=== PATIENT | female | born 1965 | race Caucasian/White ===

== ENCOUNTER → 2017-11-30 16:13 | Outpatient (CLI) | payer MEDICARE, OTHER, SELFPAY | PROVIDERS: Visit Provider Emergency Medicine | DX: F99 Mental disorder, not otherwise specified (principal); R63.5 Abnormal weight gain ==

== ENCOUNTER → 2017-12-09 09:54 | Outpatient (CLI) | payer MEDICARE, OTHER, SELFPAY ==
--- NOTE | 2017-12-09 09:59 | CI_ITS ---
Cerebrovascular Exam Indications: 785.9 Bruit. Patient states she's notes memory loss. She states that she has episodes of tingling in the left hand and leg that comes and goes. IMPRESSIONS 1. The right internal carotid artery reveals no evidence of plaque or stenosis. 2. The bilateral vertebral arteries are patent with normal antegrade flow. 3. Study suggests less than 20% stenosis involving the left internal carotid artery. History: A bruit of the left carotid artery. A bruit of the right carotid artery. Risk factors: Current tobacco use. Carotid duplex study. Complete study and Doppler flow study including spectral analysis, color and dixon scale imaging. Height: Height: 167.6cm. Height: 66in. Weight: Weight: 63.5kg. Weight: 139.7lb. Body mass index: BMI: 22.6kg/m^2. Body surface area: BSA: 1.72m^2. Location: Vascular laboratory. Patient status: Outpatient. Tables: Arterial flow: + +--------+--------+ Location V [facility] V ed + +--------+--------+ Right CCA - proximal 98.2cm/s 25.9cm/s + +--------+--------+ Right CCA - distal 81.7cm/s 30.6cm/s + +--------+--------+ Right ECA 88cm/s -------- + +--------+--------+ Right ICA - proximal 64.9cm/s 32.8cm/s + +--------+--------+ Right ICA - mid 109cm/s 54.5cm/s + +--------+--------+ Right ICA - distal 101cm/s 46.1cm/s + +--------+--------+ Right vertebral 44.7cm/s -------- + +--------+--------+ Left CCA - proximal 103cm/s 30cm/s + +--------+--------+ Left CCA - distal 84.5cm/s 36.3cm/s + +--------+--------+ Left ECA 93.6cm/s -------- + +--------+--------+ Left ICA - proximal 84.5cm/s 28.6cm/s + +--------+--------+ Left ICA - mid 112cm/s 47.5cm/s + +--------+--------+ Left ICA - distal 108cm/s 52.4cm/s + +--------+--------+ Left vertebral 53.8cm/s -------- + +--------+--------+ Velocity ratios: + + + + + + Right, V sys Right, V ed Left, V sys Left, V ed + + + + + + Max ICA/dist CCA 1.33 1.78 1.33 1.44 + + + + + + (Report amended ) Electronically signed by: Nayan Isbell [id number]
--- NOTE | 2017-12-09 09:59 | MR_ITS ---
MR head/brain wo con HISTORY: Memory loss, confusion, headache, dizziness and blurred vision ITS.REASON: confudion and disorientation ORDERING PHYSICIAN: Shant Brock MD PATIENT AGE: 52 years Comparison: None TECHNIQUE: Standard multiplanar multiecho sequences are performed without contrast. FINDINGS: No midline shift, mass effect, intracranial hemorrhage, or hydrocephalus. No evidence of acute infarction. The cerebellopontine angles, cerebellum, and brainstem have an unremarkable appearance. There are scattered punctate T2 white matter hyperintensities. These are nonspecific and do not show restricted diffusion and may be due to microangiopathic gliotic change. The hippocampal Roseanne right are unremarkable in the temporal horns are symmetric. The pituitary has an unremarkable appearance. No evidence of cerebellar ectopia. No intra or extra-axial mass. No mastoid effusion or sinus air-fluid level. IMPRESSION: 1. No acute intracranial findings. 2. Minimal T2 white matter hyperintensities nonspecific and may be due to minimal ischemic gliotic microvascular changes or could be sequela from migraine headache. Demyelinating process felt to be less likely based on imaging characteristics
[2017-12-09 12:36] LABS: Alanine Aminotransferase 19 U/L (12-78); Albumin/Globulin Ratio 1.2 (1.1-1.8); Alkaline Phosphatase 94 U/L (46-116); Anion Gap 11.1 mEq/L (5-15); Aspartate Amino Transferase 19 U/L (15-37); Bilirubin,Total 0.5 mg/dL (0.2-1.0); Blood Urea Nitrogen 12 mg/dL (7-18); Calcium 9.1 mg/dL (8.5-10.1); Carbon Dioxide 31 mmol/L (21.0-32.0); Chloride 102 mmol/L (98-107); Creatinine,Serum 0.71 mg/dL (0.55-1.02); Estimated Glomerular Filt Rate 87 ml/min (>60); Free T4 (Free Thyroxine) 1.26 ng/dl (0.76-1.46); GFR (African American) 105 ML/MIN (>60); Globulin 3.4 gm/dl (1.3-3.2); Glucose 99 mg/dL (74-106); Potassium 4.1 mmoL/L (3.5-5.1); Sodium 140 mmol/L (136-145); Total Protein,Serum 7.4 gm/dL (6.4-8.2)
[2017-12-09 12:40] LABS: C-Reactive Protein < 0.2 mg/L (0.0-0.9)
[2017-12-09 12:57] LABS: Erythrocyte Sedimentation Rate 5 mm/hr (0-20)
[2017-12-10 18:05] LABS: FSH 69.2 mIU/mL (.); LH 14.7 mIU/mL (.)
[2017-12-13 15:22] LABS: Arsenic, Blood 5 ug/L (2-23); Estrogen 60 pg/mL (.); Lead, Blood 2 ug/dL (0-19); Mercury, Blood None Detected ug/L (0.0-14.9)
== END ==
PROVIDERS: Family Provider Emergency Medicine; PCP Emergency Medicine; Visit Provider Emergency Medicine
DX: R09.89 Other specified symptoms and signs involving the circulatory and respiratory systems (principal); R63.5 Abnormal weight gain; F99 Mental disorder, not otherwise specified
CPT/HCPCS: 36415; 70551; 80053; 82175; 82672; 83001; 83002; 83655; 83825; 84439; 85651; 86140; 93880

== ENCOUNTER → 2018-02-13 10:42 | Outpatient (POV) | payer MEDICARE, OTHER, SELFPAY | LOC: SC 10:42 → RT 10:44 | PROVIDERS: Family Provider Emergency Medicine; PCP Emergency Medicine; Visit Provider Specialist | DX: R41.0 Disorientation, unspecified (principal) ==

== ENCOUNTER → 2018-02-20 12:38 | Outpatient (CLI) | payer MEDICARE, OTHER, SELFPAY ==
[2018-02-20 15:26] LABS: Free T4 (Free Thyroxine) 1.21 ng/dl (0.76-1.46); Thyroid Stimulating Hormone 1.61 uIU/ml (0.358-3.740)
[2018-02-21 14:19] LABS: Anti-Jo-1 <0.2 AI (0.0-0.9); Anti-Smith Antibody <0.2 AI (0.0-0.9); Antichromatin Antibodies <0.2 AI (0.0-0.9); Antiscleroderma-70 Antibodies <0.2 AI (0.0-0.9); RNP Antibodies <0.2 AI (0.0-0.9); Sjogren's Anti-SS-A <0.2 AI (0.0-0.9); Sjogren's Anti-SS-B <0.2 AI (0.0-0.9)
[2018-02-22 07:49] LABS: Anti-Centromere B Antibodies <0.2 AI (0.0-0.9); Anti-DNA (DS) Ab Qn 3 IU/mL (0-9); Folate 16.3 ng/mL (>3.0); HIV Screen 4th Generation wRfx Non Reactive (Non Reactive); Rapid Plasma Reagin Ab Titer Non Reactive (NonRea<1:1); Triiodothyronine (T3) Total 177 ng/dL (71-180); Vitamin B12 310 pg/mL (232-1245)
[2018-02-24 18:32] LABS: Vitamin B1 116.2 nmol/L (66.5-200.0)
== END ==
PROVIDERS: Family Provider Emergency Medicine; PCP Emergency Medicine; Visit Provider Specialist
DX: G93.40 Encephalopathy, unspecified (principal); R41.0 Disorientation, unspecified; R41.3 Other amnesia; Z87.898 Personal history of other specified conditions; Z11.4 Encounter for screening for human immunodeficiency virus [HIV]
CPT/HCPCS: 36415; 82607; 82746; 84425; 84439; 84443; 84480; 86225; 86235; 86592; 86703; G0432

== ENCOUNTER → 2018-02-21 19:19 | Outpatient (CLI) | payer MEDICARE, OTHER, SELFPAY | PROVIDERS: PCP Emergency Medicine; Visit Provider Specialist | DX: G47.33 Obstructive sleep apnea (adult) (pediatric) (principal) | CPT/HCPCS: 95810 ==

== ENCOUNTER → 2018-02-23 12:22 | Outpatient (CLI) | payer MEDICARE, OTHER, SELFPAY | PROVIDERS: Family Provider Emergency Medicine; PCP Emergency Medicine; Visit Provider Specialist | DX: R41.0 Disorientation, unspecified (principal); R41.3 Other amnesia; G93.40 Encephalopathy, unspecified | CPT/HCPCS: 95816 ==

== ENCOUNTER → 2019-04-24 16:43 | Outpatient (CLI) | payer MEDICARE, BC, SELFPAY ==
[2019-04-24 17:29] LABS: Basophils % 0.8 % (0.1-2.0); Eosinophils % 0.8 % (0.1-12.0); Hematocrit 52.4 % (37.0-47.0); Hemoglobin 16.9 g/dL (12.2-16.2); Lymphocytes # 1.6 K/mm3 (0.7-4.5); Lymphocytes % 32.7 % (10-50); Mean Corpuscular HGB Conc 32.2 g/dL (31.8-35.4); Mean Corpuscular Hemoglobin 29.9 pg (27.0-31.2); Mean Corpuscular Volume 92.8 fl (81-99); Mean Platelet Volume 8.7 fl (7.4-10.4); Monocytes # 0.3 K/mm3 (0.1-1.0); Monocytes % 5.7 % (1.7-9.3); Neutrophils % 60.1 % (37.0-80.0); Platelet Count 237 K/mm3 (142-424); Red Blood Count 5.65 M/mm3 (4.20-5.40); Red Cell Distribution Width 14.3 % (11.5-17.5)
[2019-04-24 18:19] LABS: Alanine Aminotransferase 23 U/L (12-78); Albumin Level 4.3 gm/dL (3.4-5.0); Albumin/Globulin Ratio 1.3 (1.1-1.8); Alkaline Phosphatase 74 U/L (46-116); Anion Gap 12.4 mEq/L (5-15); Aspartate Amino Transferase 27 U/L (15-37); Bilirubin,Total 0.5 mg/dL (0.2-1.0); Blood Urea Nitrogen 9 mg/dL (7-18); Calcium 9.5 mg/dL (8.5-10.1); Carbon Dioxide 32 mmol/L (21.0-32.0); Chloride 99 mmol/L (98-107); Chol/HDL Ratio 2.7 (1-3.5); Cholesterol 178 mg/dL (140-200); Creatinine,Serum 0.79 mg/dL (0.55-1.02); Estimated Glomerular Filt Rate 77 ml/min (>60); GFR (African American) 93 ML/MIN (>60); Globulin 3.2 gm/dl (1.3-3.2); Glucose 84 mg/dL (74-106); HDL Cholesterol 65 mg/dL (29-89); LDL Cholesterol 98 mg/dL (0-130); Potassium 4.4 mmoL/L (3.5-5.1); Sodium 139 mmol/L (136-145); T4 (Thyroxine) 14.5 ug/dl (4.7-13.3); Total Protein,Serum 7.5 gm/dL (6.4-8.2); Triglycerides 75 mg/dL (30-200); VLDL Cholesterol 15 mg/dL (0-40)
[2019-04-24 18:43] LABS: Erythrocyte Sedimentation Rate 3 mm/hr (0-30)
[2019-04-26 11:21] LABS: Vitamin D 25 Hydroxy 28.3 ng/mL (30.0-100.0)
== END ==
PROVIDERS: Visit Provider Emergency Medicine
DX: M79.7 Fibromyalgia (principal); Z00.00 Encounter for general adult medical examination without abnormal findings; I10 Essential (primary) hypertension; R05 Cough
CPT/HCPCS: 80053; 80061; 82652; 84436; 84443; 85025; 85651

== ENCOUNTER → 2019-05-08 10:14 | Outpatient (CLI) | payer MEDICARE, BC, SELFPAY ==
[2019-05-09 14:11] LABS: Folate 10.8 ng/mL (>3.0); Vitamin B12 358 pg/mL (232-1245)
== END ==
PROVIDERS: Visit Provider Physician Assistant
DX: R71.8 Other abnormality of red blood cells (principal)
CPT/HCPCS: 36415; 82607; 82746

== ENCOUNTER → 2020-10-30 09:47 | Outpatient (CLI) | payer MEDICARE, SELFPAY ==
--- NOTE | 2020-10-30 09:51 | MM_ITS ---
PROCEDURE INFORMATION: Exam: MG Screening 3D Mammography Exam date and time: 10/30/2020 9:51 AM Age: 55 years old Clinical indication: Breast CA screening TECHNIQUE: Imaging protocol: Screening tomosynthesis and 2D mammography including computer-aided detection (CAD) when performed. COMPARISON: No relevant prior studies available. FINDINGS: MAMMOGRAPHY: Breast composition: The breast tissue is composed of scattered areas of fibroglandular density. Mass: None. Architectural distortion: None. Calcifications: No suspicious calcifications. Asymmetric density: None. Skin thickening: None. Axillary adenopathy: None. Implants: Subpectoral saline breast implants are present. IMPRESSION: No mammographic evidence of malignancy. Annual screening is recommended unless otherwise clinically indicated. ASSESSMENT: BI-RADS Category 1: Negative
== END ==
PROVIDERS: PCP Emergency Medicine; Visit Provider Nurse Practitioner Family
DX: Z12.31 Encounter for screening mammogram for malignant neoplasm of breast (principal)
CPT/HCPCS: 77063; 77067

== ENCOUNTER → 2021-02-27 11:24 | Outpatient (CLI) | payer MEDICARE, SELFPAY ==
--- NOTE | 2021-02-27 11:28 | XR_ITS ---
PROCEDURE: XR CHEST 2V CLINICAL HISTORY: Shortness of breath COMPARISON: CR CXR CHEST(2 VIEWS-NOT PORTABLE) from 03/17/2017 FINDINGS: The cardiomediastinal silhouette and pulmonary vascularity are within normal limits. No lobar consolidation or collapse. There is a calcified granuloma in the left lower lobe. There is mild hyperinflation. No acute bony abnormalities. IMPRESSION: Hyperinflation which may be due to COPD, bronchitis, or asthma. Dictated by: Nayan Isbell MD 02/27/2021 12:09 Nayan Isbell MD in [place] 02/27/2021 12:09
== END ==
PROVIDERS: PCP Emergency Medicine; Visit Provider Emergency Medicine
DX: J44.9 Chronic obstructive pulmonary disease, unspecified (principal)
CPT/HCPCS: 71046

== ENCOUNTER → 2021-02-27 13:54 | Outpatient (CLI) | payer MEDICARE, SELFPAY ==
[2021-02-27 14:09] LABS: Basophils # 0.1 K/mm3 (0-0.2); Basophils % 1.7 % (0.1-2.0); Eosinophils % 0.4 % (0.1-12.0); Hematocrit 48.4 % (37.0-47.0); Hemoglobin 15.5 g/dL (12.2-16.2); Lymphocytes # 2.3 K/mm3 (0.7-4.5); Lymphocytes % 33.9 % (10-50); Mean Corpuscular HGB Conc 31.9 g/dL (31.8-35.4); Mean Corpuscular Volume 93.9 fl (81-99); Mean Platelet Volume 8.9 fl (7.4-10.4); Monocytes # 0.4 K/mm3 (0.1-1.0); Monocytes % 5.6 % (1.7-9.3); Neutrophils % 58.4 % (37.0-80.0); Platelet Count 286 K/mm3 (142-424); Red Blood Count 5.15 M/mm3 (4.20-5.40); Red Cell Distribution Width 13.9 % (11.5-17.5); White Blood Count 6.8 K/mm3 (4.8-10.8)
[2021-02-27 14:38] LABS: Alanine Aminotransferase 11 U/L (12-78); Albumin Level 3.8 g/dl (3.5-5.0); Albumin/Globulin Ratio 1.2 (1.1-1.8); Alkaline Phosphatase 78 U/L (38-126); Anion Gap 13.8 mEq/L (5-15); Aspartate Amino Transferase 22 U/L (14-36); Bilirubin,Total 0.1 mg/dl (0.2-1.3); Blood Urea Nitrogen 16 mg/dl (7-17); Calcium 9.5 mg/dl (8.4-10.2); Carbon Dioxide 32 mmol/L (22.0-30.0); Chloride 97 mmol/L (98-107); Chol/HDL Ratio 2.2 (1-3.5); Cholesterol 178 mg/dl (140-200); Estimated Glomerular Filt Rate 75 ml/min (>60); GFR (African American) 91 ML/MIN (>60); Globulin 3.3 g/dL (1.3-3.2); Glucose 73 mg/dl (74-100); HDL Cholesterol 82 mg/dl (40-60); Potassium 4.8 mmoL/L (3.5-5.1); Sodium 138 mmol/L (136-145); Total Protein,Serum 7.1 g/dl (6.3-8.2); Triglycerides 52 mg/dl (30-150); VLDL Cholesterol 10 mg/dL (0-40)
[2021-02-27 14:49] LABS: Direct LDL Cholesterol 82.35 mg/dL (100-129)
[2021-02-27 14:55] LABS: 25-OH Vitamin D, Total 37.2 ng/mL (30-100); T4 (Thyroxine) 10.5 ug/dl (5.53-11.0)
[2021-02-27 15:09] LABS: Thyroid Stimulating Hormone 4.22 uIU/mL (0.465-4.68)
== END ==
LOC: LAB.DROPOF 13:55
PROVIDERS: Visit Provider Emergency Medicine
DX: E55.9 Vitamin D deficiency, unspecified (principal); J44.9 Chronic obstructive pulmonary disease, unspecified; M19.90 Unspecified osteoarthritis, unspecified site; R53.83 Other fatigue; M79.7 Fibromyalgia; E78.5 Hyperlipidemia, unspecified
CPT/HCPCS: 71046; 80053; 80061; 82306; 84436; 84443; 85025

== ENCOUNTER → 2021-03-16 14:43 | Outpatient (CLI) | payer MEDICARE, SELFPAY ==
[2021-03-16 15:50] VITALS: PULSE 70; PULSE 76
== END ==
LOC: RT 14:44
PROVIDERS: PCP Emergency Medicine; Visit Provider Emergency Medicine
DX: R06.02 Shortness of breath (principal)
CPT/HCPCS: 94060; 94640; 94727; 94729

== ENCOUNTER → 2021-07-29 14:38 | Outpatient (CLI) | payer MEDICARE, SELFPAY ==
--- NOTE | 2021-07-29 15:04 | CT_ITS ---
FINAL REPORT TECHNIQUE: Axial images were obtained from the lung apex to the mid abdomen by computed tomography. Low-dose protocol was utilized. CLINICAL HISTORY: lung cancer screening..pt smokes 1 pack a day for 30 years FINDINGS: CHEST CT LOW DOSE CTDI vol (mGy): 2.90 DLP (mGy-cm): 101.60 Bilateral subglandular breast implants are identified. There are densely calcified subcarinal and left hilar lymph nodes. The heart is normal in size. There is no pericardial or pleural effusion. Lung window images demonstrate no suspicious infiltrate or nodule. There are advanced changes of centrilobular emphysema. There is a benign-appearing cyst in the right lobe of the liver measuring 9 mm. IMPRESSION: Advanced emphysema. Lung RADS category 1S. Recommend 12 month follow-up low-dose chest CT. Reviewed, Interpreted and Dictated by Paddy Painter MD Transcribed by Nitza Medina Authenticated by Paddy Painter MD on 07/29/2021 04:19:29 PM [facility]
== END ==
PROVIDERS: PCP Emergency Medicine; Visit Provider Internal Medicine Pulmonary Disease
DX: Z87.891 Personal history of nicotine dependence (principal); Z12.2 Encounter for screening for malignant neoplasm of respiratory organs
CPT/HCPCS: 71271

== ENCOUNTER → 2021-09-23 09:15 | Outpatient (CLI) | payer MEDICARE, SELFPAY | LOC: RT 09:17 | PROVIDERS: PCP Emergency Medicine; Visit Provider Internal Medicine Pulmonary Disease | DX: R06.09 Other forms of dyspnea (principal); J43.9 Emphysema, unspecified | CPT/HCPCS: 94762 ==

== ENCOUNTER → 2022-01-15 10:37 | Outpatient (CLI) | payer MEDICARE, SELFPAY ==
--- NOTE | 2022-01-15 10:37 | US_ITS ---
FINAL REPORT CLINICAL HISTORY: CLAUDICATION AND REST PAIN BILATERAL,SMOKER,DISCOLORATION LE'S FINDINGS: COMPLETE ANKLE/BRACHIAL INDICES BILATERAL Complete ankle brachial indices were obtained. The right NINO is 1.06. The left NINO is 1.10. IMPRESSION: ABIs are within normal limits bilaterally. Reviewed, Interpreted and Dictated by Otto Tapia III, MD Transcribed by Nitza Medina Authenticated and [facility]
--- NOTE | 2022-01-15 10:37 | CA_ITS ---
APPROVED REPORT EXAM: Comprehensive 2D, Doppler, and color-flow Echocardiogram Circular Knife Machine Cutter: Talia Eid, RT(R) Ht: 5 ft 6 in Wt: 112lbs BSA: 1.56 BP: 125/70 mmHg Indications: smoker, fatigue, MILES, abn EKG, SOA, edema 2D Dimensions LVEF (Patel's) 57.90 % F: 54 - 74 LV Volume 93.20 mL F: 46 - 106 LV Volume Index 59.74 mL/m2 F: 29 - 61 LA Volume 24.40 mL LA Volume Index 15.64 mL/m2 (M/F) 16-34 M-Mode Dimensions RVDd 1.75 cm (0.9-2.6) LA Diam 2.87 cm (1.9-4.0) LVDd 4.83 cm (3.5-5.7) Ao Diam 2.01 cm (2.0-3.7) LVDs 3.47 cm (3.5-5.7) IVSd 0.68 cm (0.6-1.1) PWd 0.72 cm (0.6-1.1) EF (Teich) 54.40% FS 28.20% EDV (Teich) 109.10 mL ESV (Teich) 49.80 mL LV Diastology E Decel Time 217.00 (160-240 msec) E/A Ratio 1.6 MED E' 8.60 (< 7 cm/sec) E'/MED E' Ratio 8.58 (>14) LAT E' 13.10 (<10 cm/sec) E/LAT E' Ratio 5.63 (>14) Mitral Valve MV E Max Khoi. 74.00 (40-130 cm/s) MV A Velocity 45.00 (40-130 cm/s) E/A Ratio 1.63 MV Decel. Time 217.00 (160-240 ms) MV PHT 63.00 ms Tricuspid Valve TR P. Velocity 183.00 cm/s RAP Estimate 10.00 mmHg RVSP 23.30 mmHg Left Ventricle Left atrium normal size left ventricle is normal size, there is no concentric left ventricular hypertrophy, estimated ejection fraction 55% with no regional wall motion abnormality, diastolic parameters are within normal range. Right Ventricle Right atrium and right ventricle are mildly enlarged with normal contractility. Aortic Valve Aortic valve is minimally thickened and calcified without aortic stenosis, there is mild aortic insufficiency. Mitral Valve Mitral valve grossly normal, there is trace mitral regurgitation. Tricuspid Valve Tricuspid valve grossly normal, there is trace tricuspid regurgitation, tricuspid regurgitation jet velocity is inadequate for calculation of the right ventricular systolic pressure. Pulmonic Valve Pulmonic valve is poorly visualized. Great Vessels Aortic root is normal size. Inferior vena cava normal size with normal inspiratory collapse. Pericardium No significant pericardial effusion noted. Conclusion 1. Normal left ventricular size preserved left ventricular systolic function, estimated ejection fraction 55% with no regional wall motion abnormality, diastolic parameters are within normal range. 2. Qualitatively mildly enlarged right ventricle with normal contractility. 3. Mild aortic, trace mitral and tricuspid regurgitation. 4. No significant pericardial effusion noted. 5. Inferior vena cava is normal size with normal inspiratory collapse. Electronically signed by : Humza Naranjo MD 01/15/2022 12:07:34
== END ==
LOC: RT 10:37
PROVIDERS: PCP Emergency Medicine; Visit Provider Nurse Practitioner Family
DX: F19.11 Other psychoactive substance abuse, in remission (principal); L81.9 Disorder of pigmentation, unspecified; R06.00 Dyspnea, unspecified; R20.0 Anesthesia of skin; R42 Dizziness and giddiness; R53.83 Other fatigue; R60.0 Localized edema; R94.31 Abnormal electrocardiogram [ECG] [EKG]; Z72.0 Tobacco use; I70.213 Atherosclerosis of native arteries of extremities with intermittent claudication, bilateral legs
CPT/HCPCS: 93306; 93923

== ENCOUNTER → 2022-02-04 12:19 | Outpatient (CLI) | payer MEDICARE, SELFPAY ==
--- NOTE | 2022-02-04 | CA_ITS ---
APPROVED REPORT Exam: Pharmacologic Technologist: Mary Smith, Ht: 5 ft 6 in Wt: 116 lbs BSA: 1.59 m2 HR: 58 bpm BP: 124/72 mmHg Rhythm: SINUS BRADYCARDIA, RBBB, RIGHTWARD AXI, T WAVE ABN ANTERIORLY Medical History Medications: Aspirin,,,,, Duoneb,,,,, Albuterol,,,,, Vit D3,,,,, MethADONE,,,,, PERformist,,,,, Budesonide,,,,, Vit D2,,,,, Allergies: No known drug allergies Cardiac Risk Factors: Smoking Stress Test Details Test: LEXISCAN HR Resting HR: 63 bpm Max Heart Rate (APMHR): 166.926144 bpm Max HR Achieved: 108 bpm Target HR (85% APMHR): 141.875841 bpm % of APMHR: 65.06 Recovery HR: 88 bpm BP Resting BP: 124/72 mmHg Max BP: 147/93 mmHg Recovery BP: 142.0/86.0 mmHg ECG Resting ECG: SINUS BRADYCARDIA, RBBB, RIGHTWARD AXIS, T WAVE ABN ANTERIORLY Clinical Exercise duration: 04:03 min Highest Stage Achieved: Stress ECG Conclusion PT HAS SOA, HEAD DISCOMFORT, MALAISE, NO CP. MODERATELY FREQUENT PVCS. RARE V COUPLET. EXAGGERATION OF BASELINE T WAVE ABNS. NON-DIAGNOSTIC LEXISCAN STRESS. MYOVIEW IMAGES REPORTED SEPARATELY. Test Summary REST 03:42 . . 63 . 124/ 72 . . Stage 1 01:00 . . 80 . . . . Stage 2 01:00 . . 101 . . . . Stage 3 01:00 . . 100 . 128/ 81 . . Stage 4 01:00 . . 101 . 139/ 81 . . Stage 4 01:03 . . 101 . 139/ 81 . Stop exercise at 04:03 RECOVERY 01:00 . . 100 . . . . RECOVERY 02:00 . . 101 . . . . RECOVERY 03:00 . . 92 . 147/ 93 . . RECOVERY 04:00 . . 87 . 142/ 86 . . RECOVERY 05:00 . . 86 . 142/ 86 . . RECOVERY 05:36 . . 80 . 142/ 86 . . Electronically signed by : Humza Naranjo MD 02/05/2022 09:57:35
--- NOTE | 2022-02-04 12:20 | NM_ITS ---
APPROVED REPORT Exam: Nuclear Stress Test Indication: TOB USE, SOB, FATIGUE, ABN EKG Patient Location: Outpatient Stress Tech: Mary Smith MD Tech:Jeny WongMIO hein RT (R)(N)(M) Ht: 5 ft 6 in Wt: 125 lbs Bra Size: B HR: 58 bpm BP: 124/72 mmHg BSA: 1.64 m2 TID: 1.16 BMI: 20.1 History: TOB USE, SOB, FATIGUE, ABN EKG Procedure: Patient received a 0.4 mg of intravenous Lexiscan, resting heart rate 58 bpm, resting blood pressure 124/72 mmHg, with Lexiscan maximum heart rate achived was 101 bpm which is Less than 85 % of the maximum predicted heart rate and blood pressure was 128/81 mmHg. With Lexiscan, patient denied any complaint of chest pain. SOA Electrocardiogram Resting electrocardiogram showed sinus rhythm right bundle branch block, with Lexiscan there is less than 1.[address] segment depression noted from the baseline EKG. The EKG portion of the Lexiscan is nondiagnostic. Cardiac Stress and Resting SPECT Images: Cardiac Stress and Resting SPECT images were obtained using technetium 99m Myoview 31.6 mCi stress and 9.91 mCi at rest. Gated SPECT for analysis of segmental wall motion and calculation of the ejection fraction also done. Prone images were also obtained. Cardiac stress and rest SPECT images show mild fixed defect in the anterior wall with normal contractility in the gated SPECT is likely secondary to soft tissue attenuation from the breast, no reversible ischemia seen, computer derived ejection fraction is 48% with no regional wall motion abnormality, right ventricle is normal size and contractility. Conclusion: 1. The EKG portion of the Lexiscan is nondiagnostic. 2. No scintigraphic evidence of reversible ischemia seen, computer derived ejection fraction is 48% with no regional wall motion abnormality, right ventricle is normal size and contractility. 3. Likely normal Lexiscan Myoview study. Electronically signed by : Humza Naranjo MD 02/05/2022 10:04:15
== END ==
LOC: RAD 12:20
PROVIDERS: PCP Emergency Medicine; Visit Provider Nurse Practitioner Family
DX: F19.11 Other psychoactive substance abuse, in remission (principal); I73.9 Peripheral vascular disease, unspecified; L81.9 Disorder of pigmentation, unspecified; M79.606 Pain in leg, unspecified; R06.00 Dyspnea, unspecified; R20.0 Anesthesia of skin; R42 Dizziness and giddiness; R53.83 Other fatigue; R60.0 Localized edema; R94.31 Abnormal electrocardiogram [ECG] [EKG]; Z72.0 Tobacco use
CPT/HCPCS: 78452; 93017; A9502; J2785

== ENCOUNTER → 2022-05-13 14:47 | Outpatient (CLI) | payer MEDICARE, SELFPAY ==
[2022-05-13 16:19] LABS: Basophils # 0.1 K/mm3 (0-0.2); Basophils % 0.9 % (0.1-2.0); Eosinophils # 0.1 K/mm3 (0.0-0.4); Eosinophils % 0.8 % (0.1-12.0); Hematocrit 48.4 % (37.0-47.0); Hemoglobin 15.3 g/dL (12.2-16.2); Lymphocytes # 1.9 K/mm3 (0.7-4.5); Lymphocytes % 33.2 % (10-50); Mean Corpuscular HGB Conc 31.6 g/dL (31.8-35.4); Mean Corpuscular Hemoglobin 29.7 pg (27.0-31.2); Mean Platelet Volume 8.6 fl (7.4-10.4); Monocytes # 0.3 K/mm3 (0.1-1.0); Monocytes % 5.7 % (1.7-9.3); Neutrophils # 3.5 K/mm3 (1.8-7.8); Neutrophils % 59.4 % (37.0-80.0); Platelet Count 233 K/mm3 (142-424); Red Blood Count 5.15 M/mm3 (4.20-5.40); Red Cell Distribution Width 13.6 % (11.5-17.5); White Blood Count 5.8 K/mm3 (4.8-10.8)
[2022-05-13 17:21] LABS: Alanine Aminotransferase 15 U/L (12-78); Albumin Level 4.5 g/dl (3.5-5.0); Alkaline Phosphatase 88 U/L (38-126); Anion Gap 10.2 mEq/L (5-15); Aspartate Amino Transferase 29 U/L (14-36); Bilirubin,Direct 0.1 mg/dl (0.0-0.4); Bilirubin,Indirect 0.1 mg/dL (0.0-0.9); Bilirubin,Total 0.2 mg/dl (0.2-1.3); Bilirubin,Unconjugated 0.1 mg/dL (0.0-1.1); Blood Urea Nitrogen 19 mg/dl (7-17); Calcium 9.7 mg/dl (8.4-10.2); Carbon Dioxide 37 mmol/L (22.0-30.0); Chloride 96 mmol/L (98-107); Chol/HDL Ratio 2.8 (1-3.5); Cholesterol 171 mg/dl (140-200); Estimated Glomerular Filt Rate 65 ml/min (>60); GFR (African American) 79 ML/MIN (>60); Glucose 84 mg/dl (74-100); HDL Cholesterol 61 mg/dl (40-60); Potassium 5.2 mmoL/L (3.5-5.1); Sodium 138 mmol/L (136-145); Total Protein,Serum 7.1 g/dl (6.3-8.2); Triglycerides 69 mg/dl (30-150); VLDL Cholesterol 14 mg/dL (0-40)
[2022-05-13 17:31] LABS: Direct LDL Cholesterol 81.87 mg/dL (100-129)
== END ==
PROVIDERS: PCP Nurse Practitioner Family; Visit Provider Nurse Practitioner
DX: E78.5 Hyperlipidemia, unspecified (principal); M79.604 Pain in right leg; M79.605 Pain in left leg
CPT/HCPCS: 36415; 80048; 80061; 80076; 85025

== ENCOUNTER → 2023-01-21 12:46 | Outpatient (CLI) | payer MEDICARE, SELFPAY | PROVIDERS: PCP Nurse Practitioner Family; Visit Provider Nurse Practitioner Family | DX: G47.33 Obstructive sleep apnea (adult) (pediatric) (principal); R40.0 Somnolence; R53.83 Other fatigue | CPT/HCPCS: G0399 ==

== ENCOUNTER 2023-07-06 03:09 | Observation (INO) | payer MEDICARE, SELFPAY ==
[2023-07-06] VITALS (17 sets, daily range): BP systolic 115–152; BP diastolic 66–134; PULSE 65–84; RESP 16–20; TEMP 36.4–37.7; O2SAT 92–97; BMI 18.6; BMI 16.0
--- NOTE | 2023-07-06 03:23 | CT_ITS ---
PROCEDURE INFORMATION: Exam: CTA Head With Contrast, Arteriography Exam date and time: 07/06/2023 3:35 AM Age: 57 years old Clinical indication: Stroke-like symptoms; Dizziness/giddiness and visual disturbance; Additional info: Stroke alert, blurry vision, dizziness TECHNIQUE: Imaging protocol: Computed tomographic angiography of the head with contrast. Exam focused on the arteries. 3D rendering (Not supervised by radiologist): MIP and/or 3D reconstructed images were created by the technologist. Radiation optimization: All CT scans at this facility use at least one of these dose optimization techniques: automated exposure control; mA and/or kV adjustment per patient size (includes targeted exams where dose is matched to clinical indication); or iterative reconstruction. Contrast material: ISOVUE; Contrast volume: 100 ml; Contrast route: INTRAVENOUS (IV); COMPARISON: CT HEAD/BRAIN WO CON 07/06/2023 3:28 AM FINDINGS: ANTERIOR CIRCULATION: Right internal carotid artery: Intracranial segment is patent with no significant stenosis. No aneurysm. Right middle cerebral artery: No occlusion or significant stenosis. No aneurysm. Right anterior cerebral artery: No occlusion or significant stenosis. No aneurysm. Left internal carotid artery: Intracranial segment is patent with no significant stenosis. No aneurysm. Left middle cerebral artery: No occlusion or significant stenosis. No aneurysm. Left anterior cerebral artery: No occlusion or significant stenosis. No aneurysm. POSTERIOR CIRCULATION: Right vertebral artery: No occlusion or significant stenosis. No aneurysm. Left vertebral artery: No occlusion or significant stenosis. No aneurysm. Basilar artery: No occlusion or significant stenosis. No aneurysm. Right posterior cerebral artery: No occlusion or significant stenosis. No aneurysm. Left posterior cerebral artery: No occlusion or significant stenosis. No aneurysm. Brain: No definite mass, mass effect, or midline shift. Cerebral ventricles: No ventriculomegaly. Bones/joints: Unremarkable. No acute fracture. Soft tissues: Unremarkable. IMPRESSION: No evidence for a embolism, occlusion, dissection, stenosis, or aneurysm.
--- NOTE | 2023-07-06 03:23 | XR_ITS ---
PROCEDURE INFORMATION: Exam: XR Chest Exam date and time: 07/06/2023 3:37 AM Age: 57 years old Clinical indication: Other: Pre syncope; Additional info: Pre-syncope TECHNIQUE: Imaging protocol: Radiologic exam of the chest. Views: 1 view. COMPARISON: CT LUNG SCREENING 07/29/2021 3:15 PM FINDINGS: Lungs: Unremarkable. No consolidation. There is no focal mass. Pleural spaces: Unremarkable. No pleural effusion. No pneumothorax. Heart/Mediastinum: Unremarkable. No cardiomegaly. Diaphragm: There is flattening of the hemidiaphragm with volume expansion. Bones/joints: Unremarkable. There is no acute fracture present. IMPRESSION: 1. COPD versus asthma. 2. No evidence for underlying pneumonia.
--- NOTE | 2023-07-06 03:23 | CT_ITS ---
PROCEDURE INFORMATION: Exam: CTA Neck With Contrast Exam date and time: 07/06/2023 3:35 AM Age: 57 years old Clinical indication: Stroke-like symptoms; Dizziness/giddiness and visual disturbance; Additional info: Stroke alert, blurry vision, dizziness TECHNIQUE: Imaging protocol: Computed tomographic angiography of the neck with contrast. Exam focused on the cervical segments of the vasculature. 3D rendering (Not supervised by radiologist): MIP and/or 3D reconstructed images were created by the technologist. Radiation optimization: All CT scans at this facility use at least one of these dose optimization techniques: automated exposure control; mA and/or kV adjustment per patient size (includes targeted exams where dose is matched to clinical indication); or iterative reconstruction. Contrast material: ISOVUE; Contrast volume: 100 ml; Contrast route: INTRAVENOUS (IV); COMPARISON: CT ANGIO HEAD 07/06/2023 3:35 AM FINDINGS: Right common carotid artery: No stenosis. No dissection or occlusion. Right internal carotid artery: No significant stenosis. No dissection or occlusion. Right external carotid artery: No occlusion or stenosis of the origin. Left common carotid artery: No stenosis. No dissection or occlusion. Left internal carotid artery: No significant stenosis. No dissection or occlusion. Left external carotid artery: No occlusion or stenosis of the origin. Right vertebral artery: No stenosis. No dissection or occlusion. Left vertebral artery: No stenosis. No dissection or occlusion. Soft tissues: Normal. No significant soft tissue swelling. Bones/joints: No acute fracture. Lungs: Severe emphysematous changes of the lung apices. IMPRESSION: 1. No evidence for a embolism, occlusion, dissection, or aneurysm. There is no significant stenosis. 2. Severe emphysematous changes of the lung apices. REFERENCES: NASCET CRITERIA. The degree of stenosis in the cervical segment of the internal carotid artery is based on NASCET criteria. Normal is no stenosis. Mild is less than 50% stenosis. Moderate is 50-69% stenosis. Severe is 70% to 99% stenosis. Total occlusion is no detectable patent lumen.
--- NOTE | 2023-07-06 03:26 | HMH.EDGENADL ---
Discharge Plan Disposition Patient Disposition: Admitted Clinical Impressions Clinical Impression: Dizziness, Change in vision Discharge ED Provider: Alma Rosa Smith General Adult HPI <Glenny Martinez MD - Last Filed: 07/06/23 07:08> General Chief complaint: Neuro Symptoms/Deficit Stated complaint: dizzy, blurred vision Time Seen by Provider: 07/06/23 03:15 History of Present Illness HPI narrative: 57-year-old female with a history of COPD, hyperlipidemia presents to the ER with her for concerns of vision changes and dizziness. Last known normal 11 PM. Patient woke up around 230 AM and her thought she was going to get up and walk around because she gets cramps multiple times per day, however she got up and stated she was feeling dizzy and her vision changed and she requested he bring her to the hospital. Patient states her vision started going black when this all happened. She states it is now just mildly blurry but admits she is supposed to be wearing glasses. Patient states she feels like the room is spinning especially when she closes her eyes. She does not feel off balance to one side over the other. Patient states she has never had symptoms like this before. She does not feel weak anywhere specifically. She has not had any falls or trauma. No blood thinners. Related Data Home Medications Medication Instructions Recorded Confirmed methadone 10 mg/5 mL oral solution 85 mg PO ONCE hx of drug use 04/24/19 06/03/22 ergocalciferol (vitamin D2) 1,250 50,000 unit PO WEEKLY Supplement 06/25/19 07/06/23 mcg (50,000 unit) capsule Allergies Allergy/AdvReac Type Severity Reaction Status Date / Time No Known Allergies Allergy Verified 06/03/22 15:00 PFSH <Glenny Martinez MD - Last Filed: 07/06/23 07:08> [facility] Disclaimer: The information contained in this section may have been updated after the patient was seen, as this information can be updated by other users. Medical History Dyspnea on exertion Pulmonary emphysema Screening for lung cancer Seasonal allergies Smoking greater than 30 pack years Tobacco abuse counseling Tobacco use Tobacco use Surgical History Hx of tonsillectomy Family History Other No significant family history Social History Smoking Status: Current every day smoker tobacco type: cigarettes packs per day: 2 second hand exposure: Yes alcohol intake: never counseling provided: none substance use type: former substance user, crack/cocaine, heroin and other (01/13/22-Last use 2 years ) current occupational status: unemployed Travel in the last 8 weeks: None household members: spouse housing: house caffeine: Yes <Glenny Martinez MD - Last Filed: 07/06/23 07:08> ROS Obtained: Yes All systems reviewed & no additional complaints except as documented Constitutional Constitutional: Denies chills, Denies fever(s), Denies headache(s) and Denies weakness Eyes Eyes: Reports change in vision ENT Ears, Nose, Mouth, and Throat: Reports dizziness, Denies headache(s), Denies nasal congestion and Denies sore throat Cardiovascular Cardiovascular: Denies chest pain, Denies dyspnea and Denies leg edema Respiratory Respiratory: Denies cough and Denies dyspnea Gastrointestinal Gastrointestingal: Reports nausea; Denies constipation, diarrhea or vomiting Genitourinary Female Genitourinary: Denies dysuria Musculoskeletal Musculoskeletal: Denies arthralgias, Denies myalgias, Denies numbness and Denies tingling Integumentary/Breasts Skin/Breast: Denies change in pigmentation Neurologic Neurologic: Reports dizziness, Denies headache(s), Denies numbness, Denies tingling, Reports tremor(s) and Denies weakness Physical Exam <Glenny Martinez MD - Last Filed: 07/06/23 07:08> General General appearance: alert and in no apparent distress Head Head exam: atraumatic and normocephalic Eye Eye exam: Present PERRL and EOMI ENT ENT exam: Present mucous membranes moist Neck Neck exam: Present normal inspection and full ROM Chest Chest inspection: Present symmetric chest wall rise Respiratory Respiratory exam: Present normal lung sounds bilaterally; Absent respiratory distress, wheezes or stridor Cardiovascular Cardiovascular exam: Present regular rate and normal rhythm Abdominal Exam Abdominal exam: Present soft; Absent distention, tenderness, guarding or rebound Extremities Exam Extremities exam: Present full ROM; Absent tenderness or edema Neurological Exam Neurological exam: Present alert; Absent oriented X3 (Oriented to self and location, disoriented to year, NIH 1 on arrival, no ataxia, no dysarthria, no weakness or localizing deficits, vision is blurry but patient states she does not have any darkness or spots in the vision at this time) or motor sensory deficit Psychiatric Psychiatric exam: Present normal affect and normal mood Skin Skin exam: Present warm and dry Medical Decision Making <Glenny Martinez MD - Last Filed: 07/06/23 07:08> [facility] Pt receiving controlled substance: No Vital Signs: 07/06/23 03:09 07/06/23 04:00 07/06/23 04:30 Temperature 98.2 F Temperature Source Oral Pulse Rate 78 76 Pulse Rate [Left] 78 Pulse Rate [Orthostatic Lying Left] Pulse Rate [Orthostatic Sitting Left] Pulse Rate [Orthostatic Standing Left] Respiratory Rate 20 Blood Pressure 135/96 H 141/89 H Blood Pressure [Orthostatic Lying Right Arm] Blood Pressure [Orthostatic Sitting Right Arm] Blood Pressure [Orthostatic Standing Right Arm] Blood Pressure [Right Arm] 150/98 H Blood Pressure Mean Blood Pressure Mean [Right Arm] 115 Blood Pressure Source [Right Arm] Automatic Cuff Blood Pressure Position [Right Arm] Sitting 02 Sat by Pulse Oximetry 97 97 92 L Oxygen Delivery Method Room Air 07/06/23 05:00 07/06/23 05:30 07/06/23 07:40 Temperature Temperature Source Pulse Rate 66 71 Pulse Rate [Left] Pulse Rate [Orthostatic Lying Left] 69 Pulse Rate [Orthostatic Sitting Left] 76 Pulse Rate [Orthostatic Standing Left] 79 Respiratory Rate 20 18 Blood Pressure 136/82 128/86 Blood Pressure [Orthostatic Lying Right Arm] 123/81 Blood Pressure [Orthostatic Sitting Right Arm] 127/81 Blood Pressure [Orthostatic Standing Right Arm] 136/86 Blood Pressure [Right Arm] Blood Pressure Mean 105 103 Blood Pressure Mean [Right Arm] Blood Pressure Source [Right Arm] Blood Pressure Position [Right Arm] 02 Sat by Pulse Oximetry 97 96 Oxygen Delivery Method Room Air Room Air 07/06/23 06:00 07/06/23 06:30 07/06/23 06:41 Temperature Temperature Source Pulse Rate Pulse Rate [Left] Pulse Rate [Orthostatic Lying Left] Pulse Rate [Orthostatic Sitting Left] Pulse Rate [Orthostatic Standing Left] Respiratory Rate Blood Pressure 120/70 117/83 152/134 H Blood Pressure [Orthostatic Lying Right Arm] Blood Pressure [Orthostatic Sitting Right Arm] Blood Pressure [Orthostatic Standing Right Arm] Blood Pressure [Right Arm] Blood Pressure Mean 94 98 139 Blood Pressure Mean [Right Arm] Blood Pressure Source [Right Arm] Blood Pressure Position [Right Arm] 02 Sat by Pulse Oximetry Oxygen Delivery Method 07/06/23 07:00 07/06/23 07:36 07/06/23 07:39 Temperature Temperature Source Pulse Rate 67 71 80 Pulse Rate [Left] Pulse Rate [Orthostatic Lying Left] Pulse Rate [Orthostatic Sitting Left] Pulse Rate [Orthostatic Standing Left] Respiratory Rate Blood Pressure 118/79 123/81 136/86 Blood Pressure [Orthostatic Lying Right Arm] Blood Pressure [Orthostatic Sitting Right Arm] Blood Pressure [Orthostatic Standing Right Arm] Blood Pressure [Right Arm] Blood Pressure Mean 92 91 91 Blood Pressure Mean [Right Arm] Blood Pressure Source [Right Arm] Blood Pressure Position [Right Arm] 02 Sat by Pulse Oximetry 94 L 92 L 94 L Oxygen Delivery Method Lab Data Lab Results 07/06/23 03:20: WBC 5.7, RBC 4.99, Hgb 15.2, Hct 45.9, MCV 91.9, MCH 30.5, MCHC 33.2, RDW 14.7, Plt Count 216, MPV 8.1, Neut % (Auto) 53.0, Lymph % (Auto) 38.1, [place] % (Auto) 5.8, Eos % (Auto) 1.9, Baso % (Auto) 1.3, Neut # (Auto) 3.0, Lymph # (Auto) 2.2, [place] # (Auto) 0.3, Eos # (Auto) 0.1, Baso # (Auto) 0.1, PT 10.4, INR 0.96, APTT 25.5, Sodium 138, Potassium 3.8, Chloride 96 L, Carbon Dioxide 37 H, Anion Gap 8.8, BUN 16, Creatinine 0.80, Estimated Creat Clear 65, Estimated GFR 74, Est GFR ( Amer) 90, Glucose 100, Calcium 9.0, Total Bilirubin 0.4, AST 38 H, ALT 27, Alkaline Phosphatase 75, Troponin I < 0.01, Total Protein 7.2, Albumin 4.1, Globulin 3.1, Albumin/Globulin Ratio 1.3 07/06/23 06:20: Troponin I < 0.01 07/06/23 07:58: Urine Color Yellow, Urine Appearance Clear, Urine pH 6.5, Ur Specific [place] <= 1.005, Urine Protein Negative, Urine Glucose (UA) Negative, Urine Ketones Negative, Urine Blood Trace-i, Urine Nitrate Negative, Urine Bilirubin Negative, Urine Urobilinogen 0.2, Ur Leukocyte Esterase Negative, Urine RBC Occasional, Urine WBC 3-5, Ur Squamous Epith Cells 3-5, Urine Bacteria Trace 07/06/23 03:20 07/06/23 03:20 Orders (Tests/Meds): ED MEDICATIONS Generic Name Dose Route Start Last Admin Trade Name Freq PRN Reason Stop Dose Admin Acetaminophen 650 mg 07/06/23 08:38 Acetaminophen 325mg Tab PO 08/05/23 08:37 Q4HP PRN Fever or Mild Pain (1-3) Heparin Sodium (Porcine) 5,000 unit 07/06/23 09:00 Heparin Sodium 5,000 Unit/Ml Vial SQ 08/05/23 08:59 BID SANG Ondansetron HCl 4 mg 07/06/23 08:38 Ondansetron 4mg/2ml Vial IV 08/05/23 08:37 Q8HP PRN Nausea Discontinued Medications Generic Name Dose Route Start Last Admin Trade Name Freq PRN Reason Stop Dose Admin Hydroxyzine Pamoate 25 mg 07/06/23 05:16 07/06/23 05:19 Hydroxyzine Pamoate 25mg Capsule PO 07/06/23 05:17 25 mg ONCE ONE Administration Lactated Ringer's 1,000 mls @ 999 mls/hr 07/06/23 03:50 07/06/23 04:00 Lactated Ringer's 1000 Ml Bag IV 07/06/23 04:50 999 mls/hr .Q1H1M ONE Administration Iopamidol 100 ml 07/06/23 03:46 07/06/23 03:47 Iopamidol-370 (76%);100ml Bottle IV 07/06/23 03:47 100 ml ONCE ONE Administration Meclizine HCl 25 mg 07/06/23 03:50 07/06/23 04:01 Meclizine 25mg Tablet PO 07/06/23 03:51 25 mg ONCE ONE Administration Ondansetron HCl 4 mg 07/06/23 03:25 07/06/23 03:35 Ondansetron 4mg/2ml Vial IV 07/06/23 03:26 4 mg ONCE ONE Administration Sodium Chloride 10 ml 07/06/23 03:46 07/06/23 03:47 Sodium Chloride 0.9% 10ml Syr (Rad Only) IV 07/06/23 03:47 10 ml ONCE ONE Administration ORDERS Category Date Time Status CT angio head Stat Cat Scan 07/06/23 03:[address] angio neck Stat Cat Scan 07/06/23 03:[address] head/brain wo con Stat Cat Scan 07/06/23 03:23 Taken CXR --portable [XR chest portable] Stat Exams 07/06/23 03:23 Completed POCUS Point of Care (ER Only) Stat Exams 07/06/23 03:51 Taken Basic Metabolic Panel AMLAB Lab 07/07/23 06:00 Ordered Basic Metabolic Panel AMLAB Lab 07/08/23 06:00 Ordered Basic Metabolic Panel AMLAB Lab 07/09/23 06:00 Ordered CBC w/Auto Diff [Complete Blood Count Auto Diff] Stat Lab 07/06/23 03:20 Completed CMP [Comprehensive Metabolic Panel] Stat Lab 07/06/23 03:20 Completed Complete Blood Count Auto Diff AMLAB Lab 07/07/23 06:00 Ordered Complete Blood Count Auto Diff AMLAB Lab 07/08/23 06:00 Ordered Complete Blood Count Auto Diff AMLAB Lab 07/09/23 06:00 Ordered PT INR [Prothrombin Time INR] Stat Lab 07/06/23 03:20 Completed PTT [Activated Partial Thrombo Time] Stat Lab 07/06/23 03:20 Completed Trop I [Troponin I] Stat Lab 07/06/23 03:20 Completed Troponin I Q3H Lab 07/06/23 06:20 Completed Troponin I Q3H Lab 07/06/23 09:30 Ordered Urinalysis and Microscopic Stat Lab 07/06/23 07:58 Completed ECG initial [place] Stat Y 07/06/23 03:53 Completed Medical Decision Narrative: In summary, this 57year old female who is comorbidity of current condition includes COPD, hyperlipidemia which increase overall morbidity presents to the emergency department today with vision changes including blurriness, near syncope, brief vision loss, and persistent dizziness. On initial evaluation patient is hemodynamically stable, afebrile, oriented to self, , location, lateral nystagmus present, no vertical nystagmus, cranial nerves intact, no focal weakness or decrease sensation. Initial NIH 1, losing 1 point for orientation due to disorientation to time. Based on my initial evaluation of the patient, I made her a stroke alert at 0322. Differential diagnosis includes but is not limited to stroke, electrolyte abnormality, presyncope, ACS, arrhythmia. Based on these concerns, I ordered cardiac workup, emergent CT imaging of the head and neck including angiography, chest x-ray, electrolyte studies. Vision 20/50 bilaterally. ECG personally interpreted demonstrates sinus rhythm, rate 87, borderline right axis deviation, no interval abnormalities, no STEMI. Patient received IV fluids, meclizine for treatment. Labs personally reviewed demonstrate CBC with no leukocytosis or anemia, within normal limits, PT/INR and APTT normal, CMP with trace hyperchloremia but nonactionable, no other electrolyte abnormalities, kidney function normal, initial troponin less than 0.01. XR personally interpreted demonstrates no acute intrathoracic abnormality, see radiology read for final interpretation. CT imaging personally interpreted demonstrate no acute intracranial bleed on CT Noncon, CTA head and neck were personally interpreted and I do not appreciate any large vessel occlusion, radiology called me and we discussed this. They agree. See the read for full interpretation. [facility] Is having difficulty with the noncontrast head CT electronic read pushing through to our system however I did receive the paper fax of the read which is negative and has an impression of normal examination of brain. There is no acute intracranial abnormality. There is no structural abnormality. . Read by Dr Freeman at 0339. no LVO per Dr Rowan Nelson via [facility] On reassessment NIH is 0, patient is now fully oriented. Stroke alert canceled at 0405 by me after reassuring evaluation to this point. Patient's labs are reassuring and her symptoms seem to be improving. I placed the patient into ED observation at 4:31 AM for serial troponins to evaluate for possible evolving cardiac etiology for her symptoms and to preclude unnecessary admission. [id number] bedside ultrasound of the bilateral eyes is reassuring and normal. No findings of retinal detachment, vitreous hemorrhage, normal optic nerve sheath diameter. Patient had received meclizine with mild improvement of symptoms but she stated that she had a burning sensation all over so I administered a small dose of hydroxyzine. She tolerated this well. Patient has ambulated and still does not feel right . I am concerned that she may have an ongoing pathology and will require admission for MRI and further evaluation. Patient handed off to Dr. Smith at physician handoff with second troponin pending and in anticipation of hospitalist discussion for admission. I attempted to contact the hospitalist prior to my handoff to Dr. Smith but they were not available at this time likely secondary to rounding or handoff. <Alma Rosa N Luis, DO - Last Filed: 07/06/23 09:09> Vital Signs: 07/06/23 03:09 07/06/23 04:00 07/06/23 04:30 Temperature 98.2 F Temperature Source Oral Pulse Rate 78 76 Pulse Rate [Left] 78 Pulse Rate [Orthostatic Lying Left] Pulse Rate [Orthostatic Sitting Left] Pulse Rate [Orthostatic Standing Left] Respiratory Rate 20 Blood Pressure 135/96 H 141/89 H Blood Pressure [Orthostatic Lying Right Arm] Blood Pressure [Orthostatic Sitting Right Arm] Blood Pressure [Orthostatic Standing Right Arm] Blood Pressure [Right Arm] 150/98 H Blood Pressure Mean Blood Pressure Mean [Right Arm] 115 Blood Pressure Source [Right Arm] Automatic Cuff Blood Pressure Position [Right Arm] Sitting 02 Sat by Pulse Oximetry 97 97 92 L Oxygen Delivery Method Room Air 07/06/23 05:00 07/06/23 05:30 07/06/23 07:40 Temperature Temperature Source Pulse Rate 66 71 Pulse Rate [Left] Pulse Rate [Orthostatic Lying Left] 69 Pulse Rate [Orthostatic Sitting Left] 76 Pulse Rate [Orthostatic Standing Left] 79 Respiratory Rate 20 18 Blood Pressure 136/82 128/86 Blood Pressure [Orthostatic Lying Right Arm] 123/81 Blood Pressure [Orthostatic Sitting Right Arm] 127/81 Blood Pressure [Orthostatic Standing Right Arm] 136/86 Blood Pressure [Right Arm] Blood Pressure Mean 105 103 Blood Pressure Mean [Right Arm] Blood Pressure Source [Right Arm] Blood Pressure Position [Right Arm] 02 Sat by Pulse Oximetry 97 96 Oxygen Delivery Method Room Air Room Air 07/06/23 06:00 07/06/23 06:30 07/06/23 06:41 Temperature Temperature Source Pulse Rate Pulse Rate [Left] Pulse Rate [Orthostatic Lying Left] Pulse Rate [Orthostatic Sitting Left] Pulse Rate [Orthostatic Standing Left] Respiratory Rate Blood Pressure 120/70 117/83 152/134 H Blood Pressure [Orthostatic Lying Right Arm] Blood Pressure [Orthostatic Sitting Right Arm] Blood Pressure [Orthostatic Standing Right Arm] Blood Pressure [Right Arm] Blood Pressure Mean 94 98 139 Blood Pressure Mean [Right Arm] Blood Pressure Source [Right Arm] Blood Pressure Position [Right Arm] 02 Sat by Pulse Oximetry Oxygen Delivery Method 07/06/23 07:00 07/06/23 07:36 07/06/23 07:39 Temperature Temperature Source Pulse Rate 67 71 80 Pulse Rate [Left] Pulse Rate [Orthostatic Lying Left] Pulse Rate [Orthostatic Sitting Left] Pulse Rate [Orthostatic Standing Left] Respiratory Rate Blood Pressure 118/79 123/81 136/86 Blood Pressure [Orthostatic Lying Right Arm] Blood Pressure [Orthostatic Sitting Right Arm] Blood Pressure [Orthostatic Standing Right Arm] Blood Pressure [Right Arm] Blood Pressure Mean 92 91 91 Blood Pressure Mean [Right Arm] Blood Pressure Source [Right Arm] Blood Pressure Position [Right Arm] 02 Sat by Pulse Oximetry 94 L 92 L 94 L Oxygen Delivery Method Lab Data Lab Results 07/06/23 03:20: WBC 5.7, RBC 4.99, Hgb 15.2, Hct 45.9, MCV 91.9, MCH 30.5, MCHC 33.2, RDW 14.7, Plt Count 216, MPV 8.1, Neut % (Auto) 53.0, Lymph % (Auto) 38.1, [place] % (Auto) 5.8, Eos % (Auto) 1.9, Baso % (Auto) 1.3, Neut # (Auto) 3.0, Lymph # (Auto) 2.2, [place] # (Auto) 0.3, Eos # (Auto) 0.1, Baso # (Auto) 0.1, PT 10.4, INR 0.96, APTT 25.5, Sodium 138, Potassium 3.8, Chloride 96 L, Carbon Dioxide 37 H, Anion Gap 8.8, BUN 16, Creatinine 0.80, Estimated Creat Clear 65, Estimated GFR 74, Est GFR ( Amer) 90, Glucose 100, Calcium 9.0, Total Bilirubin 0.4, AST 38 H, ALT 27, Alkaline Phosphatase 75, Troponin I < 0.01, Total Protein 7.2, Albumin 4.1, Globulin 3.1, Albumin/Globulin Ratio 1.3 07/06/23 06:20: Troponin I < 0.01 07/06/23 07:58: Urine Color Yellow, Urine Appearance Clear, Urine pH 6.5, Ur Specific [place] <= 1.005, Urine Protein Negative, Urine Glucose (UA) Negative, Urine Ketones Negative, Urine Blood Trace-i, Urine Nitrate Negative, Urine Bilirubin Negative, Urine Urobilinogen 0.2, Ur Leukocyte Esterase Negative, Urine RBC Occasional, Urine WBC 3-5, Ur Squamous Epith Cells 3-5, Urine Bacteria Trace Orders (Tests/Meds): ED MEDICATIONS Generic Name Dose Route Start Last Admin Trade Name Freq PRN Reason Stop Dose Admin Acetaminophen 650 mg 07/06/23 08:38 Acetaminophen 325mg Tab PO 08/05/23 08:37 Q4HP PRN Fever or Mild Pain (1-3) Heparin Sodium (Porcine) 5,000 unit 07/06/23 09:00 Heparin Sodium 5,000 Unit/Ml Vial SQ 08/05/23 08:59 BID SANG Ondansetron HCl 4 mg 07/06/23 08:38 Ondansetron 4mg/2ml Vial IV 08/05/23 08:37 Q8HP PRN Nausea Discontinued Medications Generic Name Dose Route Start Last Admin Trade Name Freq PRN Reason Stop Dose Admin Hydroxyzine Pamoate 25 mg 07/06/23 05:16 07/06/23 05:19 Hydroxyzine Pamoate 25mg Capsule PO 07/06/23 05:17 25 mg ONCE ONE Administration Lactated Ringer's 1,000 mls @ 999 mls/hr 07/06/23 03:50 07/06/23 04:00 Lactated Ringer's 1000 Ml Bag IV 07/06/23 04:50 999 mls/hr .Q1H1M ONE Administration Iopamidol 100 ml 07/06/23 03:46 07/06/23 03:47 Iopamidol-370 (76%);100ml Bottle IV 07/06/23 03:47 100 ml ONCE ONE Administration Meclizine HCl 25 mg 07/06/23 03:50 07/06/23 04:01 Meclizine 25mg Tablet PO 07/06/23 03:51 25 mg ONCE ONE Administration Ondansetron HCl 4 mg 07/06/23 03:25 07/06/23 03:35 Ondansetron 4mg/2ml Vial IV 07/06/23 03:26 4 mg ONCE ONE Administration Sodium Chloride 10 ml 07/06/23 03:46 07/06/23 03:47 Sodium Chloride 0.9% 10ml Syr (Rad Only) IV 07/06/23 03:47 10 ml ONCE ONE Administration ORDERS Category Date Time Status CT angio head Stat Cat Scan 07/06/23 03:[address] angio neck Stat Cat Scan 07/06/23 03:[address] head/brain wo con Stat Cat Scan 07/06/23 03:23 Taken CXR --portable [XR chest portable] Stat Exams 07/06/23 03:23 Completed POCUS Point of Care (ER Only) Stat Exams 07/06/23 03:51 Taken Basic Metabolic Panel AMLAB Lab 07/07/23 06:00 Ordered Basic Metabolic Panel AMLAB Lab 07/08/23 06:00 Ordered Basic Metabolic Panel AMLAB Lab 07/09/23 06:00 Ordered CBC w/Auto Diff [Complete Blood Count Auto Diff] Stat Lab 07/06/23 03:20 Completed CMP [Comprehensive Metabolic Panel] Stat Lab 07/06/23 03:20 Completed Complete Blood Count Auto Diff AMLAB Lab 07/07/23 06:00 Ordered Complete Blood Count Auto Diff AMLAB Lab 07/08/23 06:00 Ordered Complete Blood Count Auto Diff AMLAB Lab 07/09/23 06:00 Ordered PT INR [Prothrombin Time INR] Stat Lab 07/06/23 03:20 Completed PTT [Activated Partial Thrombo Time] Stat Lab 07/06/23 03:20 Completed Trop I [Troponin I] Stat Lab 07/06/23 03:20 Completed Troponin I Q3H Lab 07/06/23 06:20 Completed Troponin I Q3H Lab 07/06/23 09:30 Ordered Urinalysis and Microscopic Stat Lab 07/06/23 07:58 Completed ECG initial [place] Stat Y 07/06/23 03:53 Completed Medical Decision Narrative: In summary, this 57year old female who is comorbidity of current condition includes COPD, hyperlipidemia which increase overall morbidity presents to the emergency department today with vision changes including blurriness, near syncope, brief vision loss, and persistent dizziness. On initial evaluation patient is hemodynamically stable, afebrile, oriented to self, , location, lateral nystagmus present, no vertical nystagmus, cranial nerves intact, no focal weakness or decrease sensation. Initial NIH 1, losing 1 point for orientation due to disorientation to time. Based on my initial evaluation of the patient, I made her a stroke alert at 0322. Differential diagnosis includes but is not limited to stroke, electrolyte abnormality, presyncope, ACS, arrhythmia. Based on these concerns, I ordered cardiac workup, emergent CT imaging of the head and neck including angiography, chest x-ray, electrolyte studies. Vision 20/50 bilaterally. ECG personally interpreted demonstrates sinus rhythm, rate 87, borderline right axis deviation, no interval abnormalities, no STEMI. Patient received IV fluids, meclizine for treatment. Labs personally reviewed demonstrate CBC with no leukocytosis or anemia, within normal limits, PT/INR and APTT normal, CMP with trace hyperchloremia but nonactionable, no other electrolyte abnormalities, kidney function normal, initial troponin less than 0.01. XR personally interpreted demonstrates no acute intrathoracic abnormality, see radiology read for final interpretation. CT imaging personally interpreted demonstrate no acute intracranial bleed on CT Noncon, CTA head and neck were personally interpreted and I do not appreciate any large vessel occlusion, radiology called me and we discussed this. They agree. See the read for full interpretation. [facility] Is having difficulty with the noncontrast head CT electronic read pushing through to our system however I did receive the paper fax of the read which is negative and has an impression of normal examination of brain. There is no acute intracranial abnormality. There is no structural abnormality. . Read by Dr Freeman at 0339. no LVO per Dr Rowan Nelson via [facility] On reassessment NIH is 0, patient is now fully oriented. Stroke alert canceled at 0405 by me after reassuring evaluation to this point. Patient's labs are reassuring and her symptoms seem to be improving. I placed the patient into ED observation at 4:31 AM for serial troponins to evaluate for possible evolving cardiac etiology for her symptoms and to preclude unnecessary admission. [id number] bedside ultrasound of the bilateral eyes is reassuring and normal. No findings of retinal detachment, vitreous hemorrhage, normal optic nerve sheath diameter. Patient had received meclizine with mild improvement of symptoms but she stated that she had a burning sensation all over so I administered a small dose of hydroxyzine. She tolerated this well. Patient has ambulated and still does not feel right . I am concerned that she may have an ongoing pathology and will require admission for MRI and further evaluation. Patient handed off to Dr. Smith at physician handoff with second troponin pending and in anticipation of hospitalist discussion for admission. I attempted to contact the hospitalist prior to my handoff to Dr. Smith but they were not available at this time likely secondary to rounding or handoff. Luis DO: On my assessment the patient, she is resting comfortably, but states that she is still not back to baseline. She is able to walk but complains of continued dizziness. Second troponin was obtained and was negative. Given her continued dizziness, I do not feel comfortable with discharge and feel that she would benefit from inpatient evaluation for possible MRI. I do not feel that she would benefit from transfer to another facility with neurology, as there is no intervenable neurologic deficit or stroke at this time. Overall, patient was deemed to be appropriate for admission. This was at 0830. I had an interactive discussion with the hospitalist who agreed to admit the patient. Total ED observation time was 4 hours. Procedures <Glenny Martinez MD - Last Filed: 07/06/23 07:08> Miscellaneous Procedure Procedure Performed: Limited ocular ultrasound Indication: Vision change Identified structures: -Both eyes Findings: Right eye: Retina: Normal Lens: Normal Vitreous body: Anechoic Optic nerve sheath diameter (mm): Normal <6 mm Foreign body: Absent Left eye: Retina: Normal Lens: Normal Vitreous body: Anechoic Optic nerve sheath diameter: Normal <6 mm Foreign body: Absent Impression: Right eye: Normal ocular ultrasound with normal optic nerve sheath diameter Left eye: Normal ocular ultrasound with normal optic nerve sheath diameter Images were saved to permanent archive The study was technically adequate CPT 14517-48 This study was performed by me, and I personally interpreted all images/videos. Based on my clinical judgement, these images were adequate and did not necessitate further imaging. Critical Care <Glenny Martinez MD - Last Filed: 07/06/23 07:08> Critical Care Time Critical Care Time: Yes Attestation: On 07/06/23, the high probability of a clinically significant, sudden or life threatening deterioration of the following system(s) (neurologic) required my full and direct attention, intervention and personal management. The time I documented below is in addition to time spent performing reported procedures but includes the following listed in this critical care notation. Total Time Total Critical Care Time: 40
[2023-07-06 03:33] LABS: Basophils # 0.1 K/mm3 (0-0.2); Basophils % 1.3 % (0.1-2.0); Chloride 96 mmol/L (98-107); Eosinophils # 0.1 K/mm3 (0.0-0.4); Eosinophils % 1.9 % (0.1-12.0); Hematocrit 45.9 % (37.0-47.0); Hemoglobin 15.2 g/dL (12.2-16.2); Lymphocytes # 2.2 K/mm3 (0.7-4.5); Lymphocytes % 38.1 % (10-50); Mean Corpuscular HGB Conc 33.2 g/dL (31.8-35.4); Mean Corpuscular Hemoglobin 30.5 pg (27.0-31.2); Mean Corpuscular Volume 91.9 fl (81-99); Mean Platelet Volume 8.1 fl (7.4-10.4); Monocytes # 0.3 K/mm3 (0.1-1.0); Monocytes % 5.8 % (1.7-9.3); Platelet Count 216 K/mm3 (142-424); Potassium 3.8 mmoL/L (3.5-5.1); Red Blood Count 4.99 M/mm3 (4.20-5.40); Red Cell Distribution Width 14.7 % (11.5-17.5); Sodium 138 mmol/L (136-145); White Blood Count 5.7 K/mm3 (4.8-10.8)
[2023-07-06] MEDS: ONDANSETRON 4MG/2ML VIAL 4 MG IV (03:35)
[2023-07-06 03:36] LABS: Alanine Aminotransferase 27 U/L (12-78); Albumin Level 4.1 g/dl (3.5-5.0); Albumin/Globulin Ratio 1.3 (1.1-1.8); Alkaline Phosphatase 75 U/L (38-126); Anion Gap 8.8 mEq/L (5-15); Aspartate Amino Transferase 38 U/L (14-36); Bilirubin,Total 0.4 mg/dl (0.2-1.3); Blood Urea Nitrogen 16 mg/dl (7-17); Carbon Dioxide 37 mmol/L (22.0-30.0); Creatinine Clearance Estimated 65 mL/min (50-200); Estimated Glomerular Filt Rate 74 ml/min (>60); GFR (African American) 90 ML/MIN (>60); Globulin 3.1 g/dL (1.3-3.2); Glucose 100 mg/dl (74-100); Total Protein,Serum 7.2 g/dl (6.3-8.2)
--- NOTE | 2023-07-06 03:37 | PC.NURSE ---
received call from [facility]. noted negative reading. speaking with radiologist.
[2023-07-06 03:39] LABS: Activated Partial Thrombo Time 25.5 seconds (22.8-30.6); INR 0.96 (0.9-1.1); Prothrombin Time 10.4 seconds (10.1-12.5)
[2023-07-06] MEDS: IOPAMIDOL-370 (76%);100ML BOTTLE 100 ML IV (03:47)
[2023-07-06] MEDS: SODIUM CHLORIDE 0.9% 10ML SYR (RAD ONLY) 10 ML IV (03:47)
[2023-07-06 03:48] LABS: Troponin I < 0.01 ng/ml (0.00-0.034)
--- NOTE | 2023-07-06 03:50 | PC.NURSE ---
received VIZ confirmation NO LVO IN VISUALIZED VESSELS PER DR RICH SCHNEIDER.
--- NOTE | 2023-07-06 03:53 | ECG_ITS ---
APPROVED REPORT Exam: Resting ECG HR:87 bpm ECG Measurements Heart Rate 87 AXES WY 126 P 88 QRSd 110 QRS 96 QT 384 T 79 QTc 428 Conclusion SINUS RHYTHM INDETERMINATE AXIS RIGHT BUNDLE BRANCH BLOCK with late R wave progression ABNORMAL ECG UNCONFIRMED REPORT Electronically signed by : Brendan Tran MD 07/06/2023 22:42:47
[2023-07-06] MEDS: LACTATED RINGERS 1000ML 1,000 ML 999 ML IV (04:00)
--- NOTE | 2023-07-06 04:00 | PC.NURSE ---
received call from [facility]. spoke with dr choe. neg result
[2023-07-06] MEDS: MECLIZINE 25MG TABLET 25 MG PO (04:01)
--- NOTE | 2023-07-06 04:05 | PC.NURSE ---
POC Glucose 93
--- NOTE | 2023-07-06 04:08 | PC.NURSE ---
Stoke alert cancelled per ED doctor
[2023-07-06] MEDS: hydrOXYzine pamoate 25MG CAPSULE 25 MG PO (05:19)
[2023-07-06 07:34] LABS: Troponin I < 0.01 ng/ml (0.00-0.034)
[2023-07-06 08:09] LABS: Microscopic, Urine URINE MICROSCOPIC (MICROSCOPIC)
[2023-07-06 08:16] LABS: Appearance,Urine CLEAR (Clear); Bilirubin,Urine Negative (Negative); Blood, Urine TRACE-I (Negative); Color,Urine YELLOW (Yellow); Glucose,Urine (UA) Negative (Negative); Ketones,Urine Negative (Negative); Leukocyte Esterase,Urine Negative (Negative); Nitrate,Urine Negative (Negative); PH,Urine 6.5 (5.0-8.5); Protein,Urine Negative (Negative); Specific Gravity, Urine <= 1.005 (1.005-1.030); Urobilinogen,Urine 0.2 EU/dl (0.2)
[2023-07-06 08:43] LABS: RBC,Urine Occasional #/hpf (0-3)
[2023-07-06 08:44] LABS: Bacteria,Urine Trace /lpf
--- NOTE | 2023-07-06 08:46 | PC.NURSE ---
CARE MANAGEMENT NOTIFIED OF ADMISSION
--- NOTE | 2023-07-06 09:15 | PC.NURSE ---
REPORT CALLED TO LUAN BERNAL
--- NOTE | 2023-07-06 09:31 | PC.NURSE ---
arrived from ED in w/c
--- NOTE | 2023-07-06 10:27 | HMH.PHAINT1 ---
Pharmacy Intervention Comments: MEDICATION RECONCILIATION COMPLETED ON PATIENT USING EXTERNAL FILL HISTORY FROM PHARMACY AND VERIFIED METHADONE DOSE WITH PATIENT RX BOTTLE. -MARTINA SILVESTRE, RUTH ANND
[2023-07-06 10:31] LABS: Troponin I < 0.01 ng/ml (0.00-0.034)
--- NOTE | 2023-07-06 10:59 | MR_ITS ---
FINAL REPORT TECHNIQUE: Multiplanar MR without contrast CLINICAL HISTORY: R/O STROKE FINDINGS: Diffusion sequences show no signal abnormality to indicate acute infarct. Scattered periventricular white matter signal changes are seen compatible with moderate chronic ischemic gliotic disease. Moderate generalized atrophy is present. No mass, hemorrhage or edema is seen. Ventricles are normal. Major vascular flow voids are intact. IMPRESSION: 1. No mass, acute infarct or hydrocephalus 2. Atrophy and chronic ischemic white matter changes Reviewed, Interpreted and Dictated by Chey Burns MD Transcribed by Gisella Ferrara Authenticated and [facility]
[2023-07-06] MEDS: HEPARIN SODIUM 5,000 UNIT/ML VIAL 5000 UNIT SQ (13:23)
[2023-07-06] MEDS: NICOTINE 14MG/24HRS PATCH 14 MG TD (13:29)
[2023-07-06] MEDS: METHADONE 10MG TABLET 115 MG PO (14:19)
--- NOTE | 2023-07-06 16:50 | EXP.HP ---
History of Present Illness *Admission Date: 07/06/23 *Reason for visit:: dizziness *History of present illness: Patient is a 57-year-old female with past medical history of substance abuse, tobacco abuse, hypertension hyperlipidemia migraine COPD who presented to hospital due to dizziness. According to the patient she has been having recurrent dizziness, vertigo, she also had changes in vision which has improved. She denies associated numbness tingling sensation weakness in arms or legs. Patient otherwise denied fever chills diarrhea constipation dysuria. [facility] Disclaimer: The information contained in this section may have been updated after the patient was seen, as this information can be updated by other users. Medical History Dyspnea on exertion Pulmonary emphysema Screening for lung cancer Seasonal allergies Smoking greater than 30 pack years Tobacco abuse counseling Tobacco use Tobacco use Surgical History Hx of tonsillectomy Family History Other No significant family history Social History Smoking Status: Current every day smoker tobacco type: cigarettes packs per day: 2 second hand exposure: Yes alcohol intake: never counseling provided: none substance use type: former substance user, crack/cocaine, heroin and other (01/13/22-Last use 2 years ) current occupational status: unemployed Travel in the last 8 weeks: None household members: spouse housing: house caffeine: Yes Review of Systems Review of Systems Review of systems (narrative): as per HPI Constitutional Constitutional: Denies headache(s) and Denies weakness ENT Ears, Nose, Mouth, and Throat: Reports dizziness and Denies headache(s) *Musculoskeletal Musculoskeletal: Denies numbness and Denies tingling *Neurologic Neurologic: Reports dizziness, Denies headache(s), Denies numbness, Denies tingling, Reports tremor(s) and Denies weakness Meds Home Medications and Allergies Home Medications Medication Instructions Recorded Confirmed Type methadone 10 mg/5 mL oral solution 115 mg PO DAILY hx of drug use 04/24/19 07/06/23 History ergocalciferol (vitamin D2) 1,250 50,000 unit PO WEEKLY Supplement 06/25/19 07/06/23 History mcg (50,000 unit) capsule New Prescriptions to Start Prescriptions: Allergies Allergy/AdvReac Type Severity Reaction Status Date / Time No Known Allergies Allergy Verified 06/03/22 15:00 Exam Data for Last 24 hours Vital signs and Labs for Last 24 Hours: Temp Pulse Resp BP Pulse Ox O2 Del Method 98.2 F 82 20 141/92 H 93 L Room Air 07/06/23 16:00 07/06/23 16:00 07/06/23 16:00 07/06/23 16:00 07/06/23 16:00 07/06/23 16:39 Laboratory Results - last 24 hr 07/06/23 03:20: WBC 5.7, RBC 4.99, Hgb 15.2, Hct 45.9, MCV 91.9, MCH 30.5, MCHC 33.2, RDW 14.7, Plt Count 216, MPV 8.1, Neut % (Auto) 53.0, Lymph % (Auto) 38.1, [place] % (Auto) 5.8, Eos % (Auto) 1.9, Baso % (Auto) 1.3, Neut # (Auto) 3.0, Lymph # (Auto) 2.2, [place] # (Auto) 0.3, Eos # (Auto) 0.1, Baso # (Auto) 0.1, PT 10.4, INR 0.96, APTT 25.5, Sodium 138, Potassium 3.8, Chloride 96 L, Carbon Dioxide 37 H, Anion Gap 8.8, BUN 16, Creatinine 0.80, Estimated Creat Clear 65, Estimated GFR 74, Est GFR ( Amer) 90, Glucose 100, Calcium 9.0, Total Bilirubin 0.4, AST 38 H, ALT 27, Alkaline Phosphatase 75, Troponin I < 0.01, Total Protein 7.2, Albumin 4.1, Globulin 3.1, Albumin/Globulin Ratio 1.3 07/06/23 06:20: Troponin I < 0.01 07/06/23 07:58: Urine Color Yellow, Urine Appearance Clear, Urine pH 6.5, Ur Specific [place] <= 1.005, Urine Protein Negative, Urine Glucose (UA) Negative, Urine Ketones Negative, Urine Blood Trace-i, Urine Nitrate Negative, Urine Bilirubin Negative, Urine Urobilinogen 0.2, Ur Leukocyte Esterase Negative, Urine RBC Occasional, Urine WBC 3-5, Ur Squamous Epith Cells 3-5, Urine Bacteria Trace 07/06/23 09:47: Troponin I < 0.01 I & O for Last 24 hours: Intake & Output 07/03/23 07/04/23 07/05/23 07/06/23 23:59 23:59 23:59 23:59 Output Total 0 / 0 Balance 0 / 0 Weight 44.991 kg Constitutional Constitutional: no acute distress *Routine HEENT Exam Head: Present normocephalic Eye: Present EOMI and PERRL ENT: Present mucous membranes moist *Routine Neck Exam Neck: Present supple; Absent lymphadenopathy *Routine Respiratory Exam Respiratory: Present CTA bilaterally *Routine Cardiovascular Exam Cardiovascular: Present RRR *Routine Abdominal Exam Abdominal: Present soft and normoactive bowel sounds; Absent tenderness *Routine Rectal Exam Rectal:: deferred *Routine Genitalia Exam Genitalia:: deferred *Routine Extremities Exam Extremities: Absent cyanosis, clubbing or edema *Routine Skin Exam Skin: Present warm; Absent rash *Routine Neurological Exam Neurological: Present alert and oriented X3 Detailed Eye Exam Visual acuity: Visual Acuity Visual Acuity Uncorrected 20/50 Assessment and Plan *Assessment and plan (1) Dizziness: Status: Acute Category: Medical Code(s): R42 - Dizziness and giddiness (2) Change in vision: Status: Acute Category: Medical Code(s): H53.9 - Unspecified visual disturbance (3) HLD (hyperlipidemia): Status: Acute Category: Medical Code(s): E78.5 - Hyperlipidemia, unspecified (4) Screening for lung cancer: Status: Chronic Category: Medical Code(s): Z12.2 - Encounter for screening for malignant neoplasm of respiratory organs (5) Tobacco use: Status: Chronic Category: Social Hx Code(s): Z72.0 - Tobacco use (6) Tobacco use: Status: Chronic Category: Social Hx Code(s): Z72.0 - Tobacco use (7) Pulmonary emphysema: Status: Chronic Category: Medical Code(s): J43.9 - Emphysema, unspecified (8) Substance abuse in remission: Problem Comment: 01/13/22- last use year 2019. Status: Chronic Category: Medical Code(s): F19.11 - Other psychoactive substance abuse, in remission Plan Patient is a 57-year-old female with past medical history of substance abuse, tobacco abuse, hypertension hyperlipidemia migraine COPD who presented to hospital due to dizziness. According to the patient she has been having recurrent dizziness, vertigo, she also had changes in vision which has improved. She denies associated numbness tingling sensation weakness in arms or legs. Patient otherwise denied fever chills diarrhea constipation dysuria. Assessment Dizziness, changes in vision, rule out CVA, other differentials include migraine COPD Substance abuse history Hyperlipidemia Hypertension History of migraines Plan MRI brain ordered-negative for acute CVA Meclizine as needed dizziness Check orthostatic vitals-within normal limits UA checked-not suggestive of UTI Monitor and replace electrolytes Resume home medications including methadone DVT prophylaxis-Lovenox
--- NOTE | 2023-07-06 18:01 | PC.NURSE ---
patient has had several episodes of paranoia since arriving to the floor. Upon returning from radiology, she requested a bed linen change and a new meal tray and stated that her request was because her was in the room by himself while she was getting the MRI. The mother of the patient informed me that the patient began losing weight and having episodes of paranoia 3 months ago. The mother also voiced her concerns regarding the patient's methadone and that she believes it is contributing to these episodes. Pt is alert and watching tv at this time. call light within reach.
[2023-07-07] VITALS: BP 130/80; PULSE 69; RESP 18; TEMP 36.8; O2SAT 94
[2023-07-07 04:00] VITALS: BP 126/91; PULSE 75; RESP 18; TEMP 36.8; O2SAT 95; BMI 15.6
--- NOTE | 2023-07-07 06:12 | PC.NURSE ---
Patient rested well throughout shift with acute changes. Denies episodes of dizziness or lightheadedness. VSS, NAD otherwise. Patient plan to discharge is unknown at this time.
[2023-07-07 07:47] LABS: Basophils % 0.6 % (0.1-2.0); Eosinophils % 0.9 % (0.1-12.0); Hematocrit 44.6 % (37.0-47.0); Hemoglobin 14.9 g/dL (12.2-16.2); Lymphocytes # 1.6 K/mm3 (0.7-4.5); Lymphocytes % 36.7 % (10-50); Mean Corpuscular HGB Conc 33.3 g/dL (31.8-35.4); Mean Corpuscular Hemoglobin 30.8 pg (27.0-31.2); Mean Corpuscular Volume 92.4 fl (81-99); Mean Platelet Volume 8.5 fl (7.4-10.4); Monocytes # 0.3 K/mm3 (0.1-1.0); Monocytes % 6.9 % (1.7-9.3); Neutrophils # 2.5 K/mm3 (1.8-7.8); Neutrophils % 54.9 % (37.0-80.0); Platelet Count 225 K/mm3 (142-424); Red Blood Count 4.83 M/mm3 (4.20-5.40); Red Cell Distribution Width 14.8 % (11.5-17.5); White Blood Count 4.5 K/mm3 (4.8-10.8)
[2023-07-07 07:50] LABS: Chloride 97 mmol/L (98-107); Sodium 136 mmol/L (136-145)
[2023-07-07 07:53] LABS: Blood Urea Nitrogen 12 mg/dl (7-17); Calcium 9.2 mg/dl (8.4-10.2); Carbon Dioxide 34 mmol/L (22.0-30.0); Creatinine Clearance Estimated 63 mL/min (50-200); Estimated Glomerular Filt Rate 87 ml/min (>60); GFR (African American) 105 ML/MIN (>60); Glucose 100 mg/dl (74-100)
[2023-07-07 08:00] VITALS: BP 127/77; PULSE 80; RESP 18; TEMP 36.7; O2SAT 96
[2023-07-07] MEDS: METHADONE 10MG TABLET 115 MG PO (08:50)
--- NOTE | 2023-07-07 09:31 | EXP.DC.SUM ---
General Admission date:: 07/06/23 Discharge date: 07/07/23 HPI HPI HPI: Patient is a 57-year-old female with past medical history of substance abuse, tobacco abuse, hypertension hyperlipidemia migraine COPD who presented to hospital due to dizziness. According to the patient she has been having recurrent dizziness, vertigo, she also had changes in vision which has improved. She denies associated numbness tingling sensation weakness in arms or legs. Patient otherwise denied fever chills diarrhea constipation dysuria. Hospital Course Hospital Course Hospital Course: Patient was seen and evaluated at the bedside on the day of discharge. Patient is stable for discharge. Patient wishes to be discharged. All patient questions were answered and patient was given time to ask questions. Patient was discharged in stable condition. Patient understands that she can return to ER in case of any sudden changes in health. Total time spent on DC - 38 mins Patient is a 57-year-old female with past medical history of substance abuse, tobacco abuse, hypertension hyperlipidemia migraine COPD who presented to hospital due to dizziness. According to the patient she has been having recurrent dizziness, vertigo, she also had changes in vision which has improved. She denies associated numbness tingling sensation weakness in arms or legs. Patient otherwise denied fever chills diarrhea constipation dysuria. Plan Dizziness, changes in vision, rule out CVA, other differentials include migraine - stable for discharge, no CVA on MRI COPD Substance abuse history Hyperlipidemia Hypertension History of migraines Exam Data for Last 24 hours Vital signs and Labs for Last 24 Hours: Temp Pulse Resp BP Pulse Ox O2 Del Method 98.1 F 80 18 127/77 96 Room Air 07/07/23 08:00 07/07/23 08:00 07/07/23 08:00 07/07/23 08:00 07/07/23 08:00 07/07/23 09:00 Laboratory Results - last 24 hr 07/06/23 09:47: Troponin I < 0.01 07/07/23 06:34: WBC 4.5 L, RBC 4.83, Hgb 14.9, Hct 44.6, MCV 92.4, MCH 30.8, MCHC 33.3, RDW 14.8, Plt Count 225, MPV 8.5, Neut % (Auto) 54.9, Lymph % (Auto) 36.7, [place] % (Auto) 6.9, Eos % (Auto) 0.9, Baso % (Auto) 0.6, Neut # (Auto) 2.5, Lymph # (Auto) 1.6, [place] # (Auto) 0.3, Eos # (Auto) 0.0, Baso # (Auto) 0.0, Sodium 136, Potassium 4.0, Chloride 97 L, Carbon Dioxide 34 H, Anion Gap 9.0, BUN 12, Creatinine 0.70, Estimated Creat Clear 63, Estimated GFR 87, Est GFR ( Amer) 105, Glucose 100, Calcium 9.2 I & O for Last 24 hours: Intake & Output 07/04/23 07/05/23 07/06/23 07/07/23 23:59 23:59 23:59 23:59 Intake Total 170 / 170 0 / 0 Output Total 0 / 0 0 / 0 Balance 170 / 170 0 / 0 Weight 44.991 kg 44.14 kg Constitutional Constitutional: no acute distress *Routine HEENT Exam Head: Present normocephalic Eye: Present EOMI and PERRL ENT: Present mucous membranes moist *Routine Neck Exam Neck: Present supple; Absent lymphadenopathy *Routine Respiratory Exam Respiratory: Present CTA bilaterally *Routine Cardiovascular Exam Cardiovascular: Present RRR *Routine Abdominal Exam Abdominal: Present soft and normoactive bowel sounds; Absent tenderness *Routine Extremities Exam Extremities: Absent cyanosis, clubbing or edema *Routine Skin Exam Skin: Present warm; Absent rash *Routine Neurological Exam Neurological: Present alert and oriented X3 Detailed Eye Exam Visual acuity: Visual Acuity Visual Acuity Uncorrected 20/50 Results Data Completed and Pending Labs on day of discharge: Labs from last 24 hours 07/07/23 07/06/23 06:34 09:47 WBC 4.5 L RBC 4.83 Hgb 14.9 Hct 44.6 MCV 92.4 MCH 30.8 MCHC 33.3 RDW 14.8 Plt Count 225 MPV 8.5 Neut % (Auto) 54.9 Lymph % (Auto) 36.7 [place] % (Auto) 6.9 Eos % (Auto) 0.9 Baso % (Auto) 0.6 Neut # (Auto) 2.5 Lymph # (Auto) 1.6 [place] # (Auto) 0.3 Eos # (Auto) 0.0 Baso # (Auto) 0.0 Sodium 136 Potassium 4.0 Chloride 97 L Carbon Dioxide 34 H Anion Gap 9.0 BUN 12 Creatinine 0.70 Estimated Creat Clear 63 Estimated GFR 87 Est GFR ( Amer) 105 Glucose 100 Calcium 9.2 Troponin I < 0.01 DS: Diagnosis Discharge Diagnosis (1) Dizziness: Status: Acute Code(s): R42 - Dizziness and giddiness (2) Change in vision: Status: Acute Code(s): H53.9 - Unspecified visual disturbance (3) HLD (hyperlipidemia): Status: Acute Code(s): E78.5 - Hyperlipidemia, unspecified (4) Screening for lung cancer: Status: Chronic Code(s): Z12.2 - Encounter for screening for malignant neoplasm of respiratory organs (5) Tobacco use: Status: Chronic Code(s): Z72.0 - Tobacco use (6) Pulmonary emphysema: Status: Chronic Code(s): J43.9 - Emphysema, unspecified (7) Substance abuse in remission: Status: Chronic Code(s): F19.11 - Other psychoactive substance abuse, in remission Problem details: 01/13/22- last use 2019. Meds Home Medications and Allergies Home Medications Medication Instructions Recorded Confirmed Type methadone 10 mg/5 mL oral solution 115 mg PO DAILY hx of drug use 04/24/19 07/06/23 History ergocalciferol (vitamin D2) 1,250 50,000 unit PO WEEKLY Supplement 06/25/19 07/06/23 History mcg (50,000 unit) capsule meclizine 25 mg tablet 25 mg PO TIDP PRN Dizziness 5 days 07/07/23 Rx #15 tabs New Prescriptions to Start Prescriptions: Harper Nunez Allergies Allergy/AdvReac Type Severity Reaction Status Date / Time No Known Allergies Allergy Verified 06/03/22 15:00 Discharge Plan Disposition Patient Disposition: Home, Self-Care Condition: Good Follow up Plan Follow up with: Zaire Strong APRN [Primary Care Provider] - 07/21/23 11:00 am Prescriptions/Medication Reconciliation: New meclizine 25 mg Tablet 25 mg PO TIDP PRN (Reason: Dizziness) 5 Days Qty: 15 0RF Continued methadone 10 mg/5 mL solution 115 mg PO DAILY ergocalciferol (vitamin D2) 1,250 MCG capsule 50,000 unit PO WEEKLY Problem Reconciliation Problems Reviewed?: Yes Patient Discharge Instructions ACTIVITY: Ambulate as tolerated DIET: advance to your usual diet Patient Instructions: Vertigo, DI for Vertigo Providers Primary Care Provider: Zaire Strong Admit Provider: Harper Heath Attending Provider: Harper Heath
--- NOTE | 2023-07-07 09:33 | PC.NURSE ---
clinic pharmacy called.
--- NOTE | 2023-07-07 10:36 | EXP.PN ---
Subjective *Date: 07/07/23 *Time: 10:36 Exam Data for Last 24 hours Vital signs and Labs for Last 24 Hours: Temp Pulse Resp BP Pulse Ox O2 Del Method 98.1 F 80 18 127/77 96 Room Air 07/07/23 08:00 07/07/23 08:00 07/07/23 08:00 07/07/23 08:00 07/07/23 08:00 07/07/23 09:00 Laboratory Results - last 24 hr 07/07/23 06:34: WBC 4.5 L, RBC 4.83, Hgb 14.9, Hct 44.6, MCV 92.4, MCH 30.8, MCHC 33.3, RDW 14.8, Plt Count 225, MPV 8.5, Neut % (Auto) 54.9, Lymph % (Auto) 36.7, [place] % (Auto) 6.9, Eos % (Auto) 0.9, Baso % (Auto) 0.6, Neut # (Auto) 2.5, Lymph # (Auto) 1.6, [place] # (Auto) 0.3, Eos # (Auto) 0.0, Baso # (Auto) 0.0, Sodium 136, Potassium 4.0, Chloride 97 L, Carbon Dioxide 34 H, Anion Gap 9.0, BUN 12, Creatinine 0.70, Estimated Creat Clear 63, Estimated GFR 87, Est GFR ( Amer) 105, Glucose 100, Calcium 9.2 I & O for Last 24 hours: Intake & Output 07/04/23 07/05/23 07/06/23 07/07/23 23:59 23:59 23:59 23:59 Intake Total 170 / 170 0 / 0 Output Total 0 / 0 0 / 0 Balance 170 / 170 0 / 0 Weight 44.991 kg 44.14 kg Detailed Eye Exam Visual acuity: Visual Acuity Visual Acuity Uncorrected 20/50 Assessment and Plan *Assessment and plan Plan Patient was seen and evaluated at the bedside on the day of discharge. Patient is stable for discharge. Patient wishes to be discharged. All patient questions were answered and patient was given time to ask questions. Patient was discharged in stable condition. Patient understands that she can return to ER in case of any sudden changes in health. Total time spent on DC - 38 mins
--- NOTE | 2023-07-08 15:04 | CARE MANAGER ---
Called and spoke with patient to discuss recent discharge. Patient states that she is doing well. She was not aware of scheduled f/u appt, date and time provided. No concerns voiced at time of call.
== END 2023-07-07 10:48 | disposition home or self-care (01) ==
LOC: ER 07:31 → 2ND 09:04
PROVIDERS: Emergency Medicine; Admitting Provider Internal Medicine; Emergency Provider Emergency Medicine; PCP Nurse Practitioner Family; Visit Provider Internal Medicine
DX: R42 Dizziness and giddiness (principal); H53.9 Unspecified visual disturbance; E78.5 Hyperlipidemia, unspecified; Z12.2 Encounter for screening for malignant neoplasm of respiratory organs; F17.210 Nicotine dependence, cigarettes, uncomplicated; J43.9 Emphysema, unspecified; F19.11 Other psychoactive substance abuse, in remission; G40.909 Epilepsy, unspecified, not intractable, without status epilepticus
CPT/HCPCS: 36415; 70450; 70496; 70498; 70551; 71045; 80048; 80053; 81001; 84484; 85025; 85610; 85730; 93005; 99291; G0378; J2405; Q9967

== ENCOUNTER 2024-03-16 11:15 | Outpatient (CLI) | payer MEDICARE, SELFPAY ==
--- NOTE | 2024-03-16 11:22 | CA_ITS ---
APPROVED REPORT EXAM: Comprehensive 2D, Doppler, and color-flow Echocardiogram Side Framer: FUENTES Delgadillo, RVS Ht: 5 ft 6 in Wt: 105lbs BSA: 1.52 BP: 137/62 mmHg Indications: ABN EKG Pre-op, Smoker, COPD 2D Dimensions Left Atrium 3.05 cm F: 2.7 - 3.8 LA Volume 57.20 mL LA Volume Index 37.63 mL/m2 (M/F) 16-34 M-Mode Dimensions RVDd 2.47 cm (0.9-2.6) LA Diam 4.00 cm (1.9-4.0) LVDd 4.75 cm (3.5-5.7) LVDs 3.34 cm (3.5-5.7) IVSd 0.87 cm (0.6-1.1) PWd 0.76 cm (0.6-1.1) EF (Teich) 56.70% EPSs 0.84 cm FS 29.70% EDV (Teich) 104.90 mL TAPSE 3.09 (<1.7) ESV (Teich) 45.40 mL LV Diastology E Decel Time 137 (160-240 msec) E/A Ratio 2.10 MED A' 11.00 cm/s LAT A' 7.10 cm/s Aortic Valve ELDER Index 0.90 cm2/m2 AoV Peak Khoi. 148.0 (50-130 cm/s) AI PHT 507.00 ms AO Peak GR. 8.80 mmHg AO Mean GR. 4.30 (<5 mmHg) AO VTI 31.3 (18-25 cm) ELDER (VTI) 1.40 (2.5-4.5 cm2) Mitral Valve MV A Velocity 33.0 (40-130 cm/s) E/A Ratio 2.10 Pulmonary Valve PV Peak Velocity 80.0 (50-150 cm/s) Tricuspid Valve TR P. Velocity 258.00 cm/s RAP Estimate 10.00 mmHg RVSP 36.60 mmHg Left Ventricle The left ventricle is normal size. The left ventricular systolic function is normal. The left ventricular ejection fraction is within the normal range. There is increased LV wall thickness. There is normal LV segmental wall motion. Diastolic function is indeterminate. LVEF is 55%. Right Ventricle Right ventricle is mildly dilated. The right ventricular systolic function is normal. Atria Left atrium is mildly dilated. Right atrium is mildly dilated. There is no Doppler evidence of interatrial shunt. Aortic Valve Aortic valve is mildly thickened. There is no aortic valvular stenosis. Mild aortic regurgitation. Mitral Valve The mitral valve leaflets are mildly thickened. No evidence of mitral valve stenosis. Mild mitral regurgitation. Tricuspid Valve The tricuspid valve leaflets are thin and pliable. Mild tricuspid regurgitation. RVSP is 25-30 mmHg. Pulmonic Valve The pulmonary valve is normal in structure. Trace pulmonic regurgitation. Great Vessels The aortic root is normal in size. The ascending aorta is not well-visualized. IVC is normal in size and collapses >50% with inspiration. Pericardium There is no pericardial effusion. Other Information Study Quality: Adequate Conclusion Normal LV systolic function. Mild RV dilation with normal RV function. Mild biatrial dilation. Mild AI, mild MR, mild TR. Electronically signed by : Samreen John MD 03/20/2024 12:34:23
== END 2024-03-16 23:59 | disposition home or self-care (01) ==
LOC: RT 11:17
PROVIDERS: Visit Provider Nurse Practitioner Family
DX: Z01.810 Encounter for preprocedural cardiovascular examination (principal); I36.1 Nonrheumatic tricuspid (valve) insufficiency; R94.31 Abnormal electrocardiogram [ECG] [EKG]
CPT/HCPCS: 93306

== ENCOUNTER 2024-04-04 18:25 | Emergency (ER) | payer MEDICARE, SELFPAY ==
[2024-04-04] VITALS (7 sets, daily range): BP systolic 103–162; BP diastolic 63–94; PULSE 62–85; RESP 16; TEMP 36.7–37.1; O2SAT 90–100; BMI 19.3
--- NOTE | 2024-04-04 18:37 | CT_ITS ---
PROCEDURE INFORMATION: Exam: CT Cervical Spine Without Contrast Exam date and time: 04/04/2024 7:49 PM Age: 58 years old Clinical indication: Neck pain; Additional info: Chest pain, SOA, headache, bue pain/paresthesias TECHNIQUE: Imaging protocol: Computed tomography of the cervical spine without contrast. Radiation optimization: All CT scans at this facility use at least one of these dose optimization techniques: automated exposure control; mA and/or kV adjustment per patient size (includes targeted exams where dose is matched to clinical indication); or iterative reconstruction. COMPARISON: CT ANGIO NECK 07/06/2023 3:35 AM FINDINGS: Bones: No acute fracture. 3 mm of anterolisthesis of C3 upon C4. 2 mm of retrolisthesis of C5 upon C6. No significant disc bulge or herniation. No severe spinal canal stenosis. Mild left-sided bony foraminal stenosis at C3-C4. Moderate right-sided bony foraminal stenosis at C5-C6. Lungs: No acute findings at the lung apices. Soft tissues: Unremarkable. IMPRESSION: No acute findings.
--- NOTE | 2024-04-04 18:37 | CT_ITS ---
PROCEDURE INFORMATION: Exam: CTA Head With Contrast, Arteriography Exam date and time: 04/04/2024 7:51 PM Age: 58 years old Clinical indication: Pain; Headache; Additional info: Chest pain, SOA, headache, bue pain/paresthesias TECHNIQUE: Imaging protocol: Computed tomographic angiography of the head with contrast. Exam focused on the arteries. 3D rendering (Not supervised by radiologist): MIP and/or 3D reconstructed images were created by the technologist. Radiation optimization: All CT scans at this facility use at least one of these dose optimization techniques: automated exposure control; mA and/or kV adjustment per patient size (includes targeted exams where dose is matched to clinical indication); or iterative reconstruction. Contrast material: ISOVUE; Contrast volume: 80 ml; Contrast route: INTRAVENOUS (IV); COMPARISON: CT ANGIO HEAD 07/06/2023 3:35 AM FINDINGS: ANTERIOR CIRCULATION: Right internal carotid artery: Mild calcification involving the right carotid siphon without significant stenosis. Right middle cerebral artery: No occlusion or significant stenosis. No aneurysm. Right anterior cerebral artery: No occlusion or significant stenosis. No aneurysm. Left internal carotid artery: Intracranial segment is patent with no significant stenosis. No aneurysm. Left middle cerebral artery: No occlusion or significant stenosis. No aneurysm. Left anterior cerebral artery: No occlusion or significant stenosis. No aneurysm. POSTERIOR CIRCULATION: Right vertebral artery: No occlusion or significant stenosis. No aneurysm. Left vertebral artery: Left vertebral artery is dominant. Basilar artery: No occlusion or significant stenosis. No aneurysm. Right posterior cerebral artery: No occlusion or significant stenosis. No aneurysm. Left posterior cerebral artery: No occlusion or significant stenosis. No aneurysm. IMPRESSION: No hemodynamically significant stenosis or large vessel occlusion.
--- NOTE | 2024-04-04 18:37 | CT_ITS ---
PROCEDURE INFORMATION: Exam: CT Head Without Contrast Exam date and time: 04/04/2024 7:47 PM Age: 58 years old Clinical indication: Pain; Headache; Additional info: Chest pain, SOA, headache, bue pain/paresthesias TECHNIQUE: Imaging protocol: Computed tomography of the head without contrast. Radiation optimization: All CT scans at this facility use at least one of these dose optimization techniques: automated exposure control; mA and/or kV adjustment per patient size (includes targeted exams where dose is matched to clinical indication); or iterative reconstruction. COMPARISON: MR HEAD/BRAIN WO CON 07/06/2023 11:57 AM FINDINGS: Brain: Normal. No hemorrhage. Unremarkable white matter. No mass effect. Cerebral ventricles: No ventriculomegaly. Paranasal sinuses: Chronic bilateral maxillary and right frontal sinus disease. Mastoid air cells: Visualized mastoid air cells are well aerated. Bones: Unremarkable. No acute fracture. Soft tissues: Unremarkable. IMPRESSION: 1. No acute intracranial abnormality. 2. Chronic sinus disease.
--- NOTE | 2024-04-04 18:37 | CT_ITS ---
PROCEDURE INFORMATION: Exam: CTA Chest With Contrast Exam date and time: 04/04/2024 7:54 PM Age: 58 years old Clinical indication: Pain; Chest pressure; Additional info: Chest pain, SOA, headache, bue pain/paresthesias TECHNIQUE: Imaging protocol: Computed tomographic angiography of the chest with contrast. Exam focused on the arteries. 3D rendering (Not supervised by radiologist): MIP and/or 3D reconstructed images were created by the technologist. Radiation optimization: All CT scans at this facility use at least one of these dose optimization techniques: automated exposure control; mA and/or kV adjustment per patient size (includes targeted exams where dose is matched to clinical indication); or iterative reconstruction. Contrast material: ISOVUE; Contrast volume: 80 ml; Contrast route: INTRAVENOUS (IV); COMPARISON: CT LUNG SCREENING 07/29/2021 3:15 PM FINDINGS: Pulmonary arteries: The pulmonary arteries enhance appropriately with no evidence of pulmonary embolism. Aorta: Mild aortic ectasia/tortuosity and calcific atherosclerosis. No aortic aneurysm or dissection. No mediastinal hematoma. Thyroid: Ovoid low-density nodule in the right thyroid lobe measuring up to 13 mm, which does not require further evaluation based on current consensus criteria. Nearby smaller 5 mm nodule also noted. Lungs: Moderate-severe bilateral emphysematous changes with upper to mid lung field predominance, mildly progressed from 07/29/2021. No gross pulmonary infiltrates or edema pattern. Mild atelectasis in the lung bases. No pulmonary mass lesions are identified. Granulomatous calcifications in the left lung. Pleural spaces: No pleural effusion. No pneumothorax. Heart: Heart size normal. No pericardial effusion. Coronary arteries: No coronary artery calcification. Esophagus: The esophagus is largely contracted but demonstrates no gross abnormality. Lymph nodes: No supraclavicular or axillary adenopathy. No mediastinal or hilar adenopathy. Liver: Numerous hepatic cysts and granulomatous calcifications which do not require further assessment. Spleen: Granulomatous calcifications in the spleen. Bones/joints: No acute osseous abnormalities. Old healed fracture of the lower sternal body again noted. Soft tissues: Bilateral breast implants which demonstrate a new collapsed appearance since 07/29/2021 suggestive of implant rupture. Small volume air content in the left implant, etiology uncertain, correlate clinically to exclude evidence of infected implant. IMPRESSION: 1. No evidence of pulmonary embolism or aortic dissection. 2. Moderate-severe bilateral emphysematous changes with upper to mid lung field predominance, progressed since 07/29/2021. 3. Bilateral breast implants demonstrate new collapsed appearance since 07/29/2021 suggesting implant rupture. Small volume air content in the left implant is of uncertain etiology, correlate clinically to exclude evidence of infection. No abscess. 4. Additional nonemergent findings detailed above. COMMENTS: 1. Consistent with the [employer]'s Incidental Findings Committee white paper (J Am Jillian Radiol 2015): In patients aged 35 years and older with an incidental thyroid nodule equal to or greater than 1.[address], MRI or extrathyroidal US, further evaluation with dedicated thyroid US is recommended for patients with normal life expectancy and without comorbidities. For smaller nodules without suspicious features, no further evaluation or follow up is recommended. 2. The presence of pulmonary emphysema on CT is an independent risk factor for lung cancer. In the absence of a history or active diagnosis of lung cancer, it is recommended that this patient with emphysema be evaluated for enrollment in a low dose CT lung cancer screening program.
--- NOTE | 2024-04-04 18:37 | CT_ITS ---
PROCEDURE INFORMATION: Exam: CTA Neck With Contrast Exam date and time: 04/04/2024 7:51 PM Age: 58 years old Clinical indication: Pain; Headache; Additional info: Chest pain, SOA, headache, bue pain/paresthesias TECHNIQUE: Imaging protocol: Computed tomographic angiography of the neck with contrast. Exam focused on the cervical segments of the vasculature. 3D rendering (Not supervised by radiologist): MIP and/or 3D reconstructed images were created by the technologist. Radiation optimization: All CT scans at this facility use at least one of these dose optimization techniques: automated exposure control; mA and/or kV adjustment per patient size (includes targeted exams where dose is matched to clinical indication); or iterative reconstruction. Contrast material: ISOVUE; Contrast volume: 80 ml; Contrast route: INTRAVENOUS (IV); COMPARISON: CT ANGIO NECK 07/06/2023 3:35 AM FINDINGS: Right common carotid artery: No stenosis. No dissection or occlusion. Right internal carotid artery: No stenosis of the extracranial segment. No dissection or occlusion. Right external carotid artery: No occlusion or stenosis of the origin. Left common carotid artery: No stenosis. No dissection or occlusion. Left internal carotid artery: No stenosis of the extracranial segment. No dissection or occlusion. Left external carotid artery: No occlusion or stenosis of the origin. Right vertebral artery: No stenosis. No dissection or occlusion. Left vertebral artery: Left vertebral artery is dominant. Aorta: Aortic calcification. Thyroid: Right thyroid nodule measures 13 mm. Soft tissues: Normal. No significant soft tissue swelling. Bones/joints: Cervical spine is better evaluated on dedicated exam. Lungs: Pulmonary emphysema. IMPRESSION: No significant stenosis or dissection. COMMENTS: Consistent with the [employer]'s Incidental Findings Committee white paper (J Am Jillian Radiol 2015): In patients aged 35 years and older with an incidental thyroid nodule equal to or greater than 1.[address], MRI or extrathyroidal US, further evaluation with dedicated thyroid US is recommended for patients with normal life expectancy and without comorbidities. For smaller nodules without suspicious features, no further evaluation or follow up is recommended. REFERENCES: NASCET CRITERIA. The degree of stenosis in the cervical segment of the internal carotid artery is based on NASCET criteria. Normal is no stenosis. Mild is less than 50% stenosis. Moderate is 50-69% stenosis. Severe is 70% to 99% stenosis. Total occlusion is no detectable patent lumen.
--- NOTE | 2024-04-04 18:40 | HMH.EDGENADL ---
Discharge Plan Disposition Patient Disposition: Home, Self-Care Condition: Good Prescriptions Prescriptions: No Action methadone 10 mg/5 mL solution 115 mg PO DAILY nicotine 21-14-7 mg/24 hr patch, TD daily, sequential See Rx Instructions transdermal .COMPLEX Qty: 56 0RF Rx Instructions: apply 1-21 mg NICOTINE PATCH daily for 28 days; follow with 1-14 mg PATCH daily for 14 days, then 1-7mg PATCH daily for 14 days transdermal ergocalciferol (vitamin D2) 1,250 MCG capsule 50,000 unit PO WEEKLY meclizine 25 mg Tablet 25 mg PO TIDP PRN (Reason: Dizziness) 5 Days Qty: 15 0RF Referrals Follow up/Referrals: Zaire Strong APRN [Primary Care Provider] - See instructions Freya Hermosillo MD [Physician] - See instructions Activity Restrictions/Add. Instructions Additional Instructions/Restrictions: You were evaluated in the emergency department today. Please follow-up very closely with your primary care provider. Imaging is reassuring with the exception of emphysema, for which I recommend close follow-up with pulmonology. I have provided you with information for Dr. Hermosillo. Your breast implants also are abnormal in appearance on CT scan, which could be concerning for possible rupture. I recommend close follow-up with the plastic surgeon. We do not have plastic surgery here at our hospital to refer you to, but you should be able to call and schedule an appointment outpatient. It is unclear what exactly is causing your symptoms at this time, but it could be referred pain from your neck. Please keep following up your primary care provider for reassessment of this to get down to the bottom of what is causing your symptoms. return to the emergency department for new or worsening symptoms. Clinical Impressions Clinical Impression: Emphysema of lung, Breast implant rupture, Anxiety Print Language Print Language: Libyan Discharge ED Provider: Alma Rosa Smith General Adult HPI General Chief complaint: Weakness Stated complaint: burning in arms, balance off Time Seen by Provider: 04/04/24 18:28 History of Present Illness HPI narrative: This patient is a 58-year-old female with a history of tobacco dependence, COPD, substance abuse in remission, migraines, fibromyalgia, arthritis, and hyperlipidemia presenting to the emergency department for evaluation with concern for generally feeling off. Patient notes that intermittently for some time now she has had symptoms in which she feels like her brain is foggy, she is having trouble remembering things, she does not feel right in the head, her arms on both sides burn, and her balance feels off. She states that it waxes and wanes and nothing seems to bring it on, nothing makes it better or worse. She notes she is still very lightheaded with these episodes. She states she seen her primary care provider and has also been referred to cardiology to make sure her heart was okay but no one has been able to tell her why this is going on. She notes that they are still running more tests. Symptoms worsened today, prompting her to come in. She states she feels very anxious. She also notes mild headache. On review of systems, she admits to chronic neck pain but no recent traumatic injuries or other issues. No fevers, chills, chest pain, abdominal pain, vomiting, changes in bowel movements, lower extremity symptoms, saddle anesthesia, incontinence, or bowel symptoms. Related Data Home Medications ?Medication ?Instructions ?Recorded ?Confirmed methadone 10 mg/5 mL oral solution 115 mg PO DAILY hx of drug use 04/24/19 03/01/24 ergocalciferol (vitamin D2) 1,250 50,000 unit PO WEEKLY Supplement 06/25/19 03/01/24 mcg (50,000 unit) capsule Previous Rx's ?Medication ?Instructions ?Recorded meclizine 25 mg tablet 25 mg PO TIDP PRN Dizziness 5 days 07/07/23 #15 tabs nicotine See Rx Instructions transdermal 10/11/23 21mg/24hr-14mg/24hr-7mg/24hr daily .COMPLEX #56 patches transderm patches,sequentl Allergies Allergy/AdvReac Type Severity Reaction Status Date / Time No Known Allergies Allergy Verified 03/01/24 11:02 [facility] Disclaimer: The information contained in this section may have been updated after the patient was seen, as this information can be updated by other users. Medical History Tobacco user Pre-operative cardiovascular examination HLD (hyperlipidemia) Abnormal electrocardiogram [ECG] [EKG] Change in vision Dizziness Screening for lung cancer Pulmonary emphysema Smoking greater than 30 pack years Tobacco use Seasonal allergies Dyspnea on exertion Tobacco abuse counseling Substance abuse in remission Claudication Leg pain Discoloration of skin of lower leg Abnormal ECG Tobacco use Vitamin D insufficiency Arthritis Fibromyalgia Migraine COPD (chronic obstructive pulmonary disease) Depression Anxiety Surgical History H/O: hysterectomy H/O bilateral breast implants Hx of tonsillectomy Family History Other Alcoholism Anemia Bleeding disorder Cancer Heart attack Hypertension Substance abuse Social History Smoking Status: Current every day smoker tobacco type: cigarettes packs per day: 2 second hand exposure: Yes alcohol intake: never counseling provided: none substance use type: former substance user, crack/cocaine, heroin and other (01/13/22-Last use 2 years ) current occupational status: unemployed Travel in the last 8 weeks: None household members: spouse housing: house caffeine: Yes Other Medical History Have you received the Flu Vaccine for this season: No Have you received the Pneumonia Vaccine: No ROS Obtained: Yes All systems reviewed & no additional complaints except as documented Physical Exam General General appearance: alert, in no apparent distress and anxious Comment: Thin, frail Head Head exam: atraumatic and normocephalic Eye Eye exam: Present normal appearance, PERRL and EOMI ENT ENT exam: Present normal exam, normal oropharynx, mucous membranes moist and normal external ear exam Neck Neck exam: Present normal inspection, full ROM and trachea midline; Absent tenderness Chest Chest inspection: Present normal inspection and symmetric chest wall rise; Absent tenderness Respiratory Respiratory exam: Present normal lung sounds bilaterally; Absent respiratory distress, wheezes, stridor or accessory muscle use Cardiovascular Cardiovascular exam: Present regular rate and normal rhythm Abdominal Exam Abdominal exam: Present soft; Absent distention, tenderness or guarding Extremities Exam Extremities exam: Present normal inspection, full ROM and normal capillary refill; Absent tenderness or edema Back Exam Back exam: Present normal inspection and full ROM; Absent tenderness Neurological Exam Neurological exam: Present alert, oriented X3, CN II-XII intact and normal gait; Absent motor sensory deficit Psychiatric Psychiatric exam: Present anxious Skin Skin exam: Present warm and dry Medical Decision Making Medical Records Medical records reviewed: Yes I reviewed the patient's medical records. Screening: Per USPSTF and CDC recommendations, given the prevalence of disease in our region, it is our hospital?s policy to screen for HIV and viral Hepatitis for all patients aged 18 and over and those with ongoing risk factors. [place] Inquiry Pt receiving controlled substance: No Vital Signs: 04/04/24 18:39 04/04/24 19:00 04/04/24 19:30 Temperature 98.8 F Temperature Source Oral Pulse Rate 72 64 Pulse Rate [Right Brachial] 85 Respiratory Rate 16 Blood Pressure 119/79 103/63 L Blood Pressure [Right Arm] 162/94 H Blood Pressure Mean [Right Arm] 116 Blood Pressure Source Blood Pressure Source [Right Arm] Automatic Cuff Blood Pressure Position Blood Pressure Position [Right Arm] Sitting 02 Sat by Pulse Oximetry 100 95 91 L Oxygen Delivery Method Room Air 04/04/24 20:00 04/04/24 20:30 04/04/24 21:00 Temperature Temperature Source Pulse Rate 64 64 62 Pulse Rate [Right Brachial] Respiratory Rate Blood Pressure 114/70 106/70 L 108/71 L Blood Pressure [Right Arm] Blood Pressure Mean [Right Arm] Blood Pressure Source Blood Pressure Source [Right Arm] Blood Pressure Position Blood Pressure Position [Right Arm] 02 Sat by Pulse Oximetry 90 L 100 100 Oxygen Delivery Method 04/04/24 21:38 Temperature 98.0 F Temperature Source Oral Pulse Rate 62 Pulse Rate [Right Brachial] Respiratory Rate 16 Blood Pressure 108/71 L Blood Pressure [Right Arm] Blood Pressure Mean [Right Arm] Blood Pressure Source Automatic Cuff Blood Pressure Source [Right Arm] Blood Pressure Position Sitting Blood Pressure Position [Right Arm] 02 Sat by Pulse Oximetry Oxygen Delivery Method Room Air Lab Data Lab results reviewed: Yes I reviewed the patient's lab results. Lab Results 04/04/24 18:46: WBC 4.6 L, RBC 5.26, Hgb 16.0, Hct 49.1 H, MCV 93.3, MCH 30.4, MCHC 32.6, RDW 14.0, Plt Count 210, MPV 7.9, Neut % (Auto) 64.6, Lymph % (Auto) 26.1, Waller % (Auto) 6.6, Eos % (Auto) 1.7, Baso % (Auto) 0.9, Neut # (Auto) 3.0, Lymph # (Auto) 1.2, Waller # (Auto) 0.3, Eos # (Auto) 0.1, Baso # (Auto) 0.0, Sodium 138, Potassium 3.7, Chloride 100, Carbon Dioxide 33 H, Anion Gap 8.7, BUN 15, Creatinine 0.70, Estimated Creat Clear 77, Estimated GFR 87, Est GFR ( Amer) 105, Glucose 76, Calcium 8.9, Phosphorus 3.9, Magnesium 2.1, Total Bilirubin 0.6, AST 58 H, ALT 21, Alkaline Phosphatase 67, Troponin I < 0.01, Total Protein 7.5, Albumin 4.6, Globulin 2.9, Albumin/Globulin Ratio 1.6, TSH 0.87, Thyroxine (T4) 11.9 H, HIV 1&2 Antibody Rapid Nonreactive 04/04/24 18:50: VBG pH 7.40, VBG pCO2 54.2 H, VBG pO2 47.4 H, VBG HCO3 33.0 H, VBG Total CO2 34.7 H, VBG O2 Saturation 88.9 H, VBG Base Excess 8.3 H, VBG Lactic Acid 1.6 04/04/24 18:46 04/04/24 18:46 Orders (Tests/Meds): ED MEDICATIONS Discontinued Medications Generic Name Dose Route Start Last Admin Trade Name Freq PRN Reason Stop Dose Admin Lactated Ringer's 1,000 mls @ 999 mls/hr 04/04/24 18:38 04/04/24 18:54 Lactated Ringer's 1000 Ml Bag IV 04/04/24 19:38 999 mls/hr .Q1H1M ONE Administration Iopamidol 110 ml 04/04/24 19:48 04/04/24 19:52 Iopamidol-370 (76%);100ml Bottle IV 04/04/24 19:49 110 ml ONCE ONE Administration Ketorolac Tromethamine 15 mg 04/04/24 18:38 04/04/24 18:55 Ketorolac 30mg/Ml Vial IV 04/04/24 18:39 15 mg ONCE ONE Administration Lorazepam 0.5 mg 04/04/24 18:38 04/04/24 18:55 Lorazepam 2mg/Ml Vial IV 04/04/24 18:39 0.5 mg ONCE ONE Administration Metoclopramide HCl 5 mg 04/04/24 18:39 04/04/24 18:54 Metoclopramide Hcl 10mg/2ml Vial IVP 04/04/24 18:40 5 mg ONCE ONE Administration Sodium Chloride 10 ml 04/04/24 18:38 04/04/24 18:54 Sodium Chloride 0.9% 10ml Vial IV 05/04/24 18:37 10 ml NEEDED PRN Administration to Dilute Lorazepam inj Sodium Chloride 50 ml 04/04/24 19:48 04/04/24 19:52 0.9 % Sodium Chloride 50 Ml Vial IV 04/04/24 19:49 50 ml ONCE ONE Administration Sodium Chloride 10 ml 04/04/24 19:48 04/04/24 19:52 Sodium Chloride 0.9% 10ml Syr (Rad Only) IV 05/04/24 19:47 10 ml NEEDED PRN Administration Maintain IV Site ORDERS Category Date Time Status CT angio chest PE protocol Stat Cat Scan 04/04/24 18:[address] angio head Stat Cat Scan 04/04/24 18:[address] angio neck Stat Cat Scan 04/04/24 18:[address] cervical spine wo con Stat Cat Scan 04/04/24 18:[address] head/brain wo con Stat Cat Scan 04/04/24 18:37 Completed Complete Blood Count Auto Diff Stat Lab 04/04/24 18:46 Completed Comprehensive Metabolic Panel Stat Lab 04/04/24 18:46 Completed HIV (1&2) Antibody Rapid Stat Lab 04/04/24 18:46 Completed Hep C Ab with Reflex to RNA Stat Lab 04/04/24 18:46 Received MAG [Magnesium] Stat Lab 04/04/24 18:46 Completed PHOS [Phosphorous] Stat Lab 04/04/24 18:46 Completed T4 (Thyroxine) Stat Lab 04/04/24 18:46 Completed TSH [Thyroid Stimulating Hormone] Stat Lab 04/04/24 18:46 Completed Trop I [Troponin I] Stat Lab 04/04/24 18:46 Completed VBG [Venous Blood Gas] Stat RT 04/04/24 18:50 Completed ECG Data Tracing #1: I reviewed this ECG and interpreted as documented below: Normal sinus rhythm with a ventricular rate of 61 bpm. Right bundle branch block. Left anterior fascicular block noted. No acute ST changes concerning for ischemia. No significant changes from prior EKG. ECG initial impression date: 04/04/24 ECG initial impression time: 20:18 Medical Decision Narrative: In summary, this patient is a 58-year-old female presenting to the Emergency Department for evaluation of generally feeling off, burning in both of her arms, memory issues, brain fog, and balance issues. Differential diagnoses considered include but are not limited to anxiety, electrolyte derangements, thyroid abnormalities, ACS, CVA, dysrhythmia. Ruling out the most morbid conditions drove assessment. It should be noted patient's history includes COPD, tobacco dependence which is not at goal therapy. This complicates all aspects of care by increasing patient's risk for morbidity. I reviewed patient's past medical records and noted previous PCP evaluations as well as cardiology evaluations. As of end of February, it looks like cardiology had performed Myoview in 2021 with no known ischemia and had planned to do an echocardiogram as an outpatient. It looks like she did have echocardiogram 03/16/2024, which demonstrated normal LV systolic function, mild RV dilatation and normal RV function, mild biatrial dilatation, mild AI, mild TR, mild MR. I also noted that back in June she was seen in the emergency department for similar issues with burning all over and sensation that something was not right. I ultimately admitted the patient for further evaluation and management. She had an MRI at that time of her brain which demonstrated atrophy and chronic ischemic white matter changes but no mass, acute infarction, or hydrocephalus. On exam, the patient is sitting upright in bed. She is anxious appearing, but she is neurologically intact with reassuring vital signs on cardiac telemetry. No focal deficits that would suggest acute intracranial pathology. She has had some issues with her neck and sleeps on her neck funny occasionally according to her , so it is possible she could have cervical radiculopathy as a cause of her arm symptoms. Workup included lab evaluation to evaluate for infectious, metabolic, cardiac causes of her symptoms as well as CT head, CT angiogram head, neck, chest, and CT C-spine.. I independently interpreted CT scans prior to the radiologist read and noted no obvious acute stroke or C-spine fracture. Please see their read for final interpretation. Labs were obtained that demonstrated negative troponin, no other acutely concerning abnormalities on labs. Scans concerning for pulmonary emphysema as well as ruptured breast implants, which family states that they are already aware of and awaiting outpatient plastic surgery evaluation. He notes that she has saline implants.. On reassessment, patient had good improvement after administration of interventions above. She is slightly tired after the Ativan. Ultimately, I feel we have excluded acute life-threatening pathology as a cause of her symptoms and that she is appropriate for discharge home. Unclear exactly what is causing her symptoms but again it could be cervical radiculopathy versus anxiety. Will have her follow-up very closely as an outpatient. Strict return precautions were given and she was discharged after all questions were answered Critical Care Critical Care Time Critical Care Time: No
[2024-04-04 18:54] LABS: Basophils % 0.9 % (0.1-2.0); Eosinophils # 0.1 K/mm3 (0.0-0.4); Eosinophils % 1.7 % (0.1-12.0); Hematocrit 49.1 % (37.0-47.0); Lymphocytes # 1.2 K/mm3 (0.7-4.5); Lymphocytes % 26.1 % (10-50); Mean Corpuscular HGB Conc 32.6 g/dL (31.8-35.4); Mean Corpuscular Hemoglobin 30.4 pg (27.0-31.2); Mean Corpuscular Volume 93.3 fl (81-99); Mean Platelet Volume 7.9 fl (7.4-10.4); Monocytes # 0.3 K/mm3 (0.1-1.0); Monocytes % 6.6 % (1.7-9.3); Neutrophils % 64.6 % (37.0-80.0); Platelet Count 210 K/mm3 (142-424); Red Blood Count 5.26 M/mm3 (4.20-5.40); White Blood Count 4.6 K/mm3 (4.8-10.8)
[2024-04-04 18:54] LABS: Lactate Venous 1.6 mmol/L (0.4-2.0); VBG Base Excess 8.3 mmol/L (-2.4-2.3); VBG Oxygen Saturation 88.9 % (50-70); VBG PO2 47.4 mmol/L (28-40); VBG Total CO2 34.7 mmol/L (23-27)
[2024-04-04] MEDS: LACTATED RINGERS 1000ML 1,000 ML 999 ML IV (18:54)
[2024-04-04] MEDS: METOCLOPRAMIDE HCL 10MG/2ML VIAL 5 MG IVP (18:54)
[2024-04-04] MEDS: SODIUM CHLORIDE 0.9% 10ML VIAL 10 ML IV (18:54)
[2024-04-04] MEDS: LORazepam 2MG/ML VIAL 0.5 MG IV (18:55)
[2024-04-04] MEDS: KETOROLAC 30MG/ML VIAL 15 MG IV (18:55)
[2024-04-04 19:00] LABS: VBG PCO2 54.2 mmol/L (35-51)
[2024-04-04 19:06] LABS: Albumin Level 4.6 g/dl (3.5-5.0); Chloride 100 mmol/L (98-107); Potassium 3.7 mmoL/L (3.5-5.1); Sodium 138 mmol/L (136-145)
[2024-04-04 19:08] LABS: Blood Urea Nitrogen 15 mg/dl (7-17); Creatinine Clearance Estimated 77 mL/min (50-200); Estimated Glomerular Filt Rate 87 ml/min (>60); GFR (African American) 105 ML/MIN (>60)
[2024-04-04 19:09] LABS: Alanine Aminotransferase 21 U/L (12-78); Albumin/Globulin Ratio 1.6 (1.1-1.8); Alkaline Phosphatase 67 U/L (38-126); Anion Gap 8.7 mEq/L (5-15); Aspartate Amino Transferase 58 U/L (14-36); Bilirubin,Total 0.6 mg/dl (0.2-1.3); Calcium 8.9 mg/dl (8.4-10.2); Carbon Dioxide 33 mmol/L (22.0-30.0); Globulin 2.9 g/dL (1.3-3.2); Glucose 76 mg/dl (74-100); Magnesium 2.1 mg/dl (1.6-2.3); Phosphorous 3.9 mg/dl (2.5-4.5); Total Protein,Serum 7.5 g/dl (6.3-8.2)
[2024-04-04 19:26] LABS: T4 (Thyroxine) 11.9 ug/dl (5.53-11.0)
[2024-04-04 19:40] LABS: Thyroid Stimulating Hormone 0.87 uIU/mL (0.465-4.68)
[2024-04-04] MEDS: SODIUM CHLORIDE 0.9% 10ML SYR (RAD ONLY) 10 ML IV (19:52)
[2024-04-04] MEDS: IOPAMIDOL-370 (76%);100ML BOTTLE 110 ML IV (19:52)
[2024-04-04] MEDS: 0.9 % SODIUM CHLORIDE 50 ML VIAL IV (19:52)
[2024-04-04 20:05] LABS: Troponin I < 0.01 ng/ml (0.00-0.034)
--- NOTE | 2024-04-04 20:10 | PC.NURSE ---
pt is very sleeping after medications and his o2 sat decreased to 87%. Applied 2lpm nc and sat improved to 96%
--- NOTE | 2024-04-04 20:16 | ECG_ITS ---
APPROVED REPORT Exam: Resting ECG HR:61 bpm ECG Measurements Heart Rate 61 AXES MS 128 P 73 QRSd 117 QRS 113 QT 463 T 24 QTc 465 Conclusion SINUS RHYTHM RIGHT BUNDLE BRANCH BLOCK [120+ ms QRS DURATION, UPRIGHT V1, 40+ ms S IN I/aVL/V4/V5/V6] LEFT POSTERIOR FASCICULAR BLOCK [QRS AXIS > 109, INFERIOR Q] ABNORMAL ECG UNCONFIRMED REPORT Electronically signed by : CAROL VALENCIA, 04/05/2024 06:51:43
[2024-04-04 20:57] LABS: HIV (1&2) Antibody Rapid NONREACTIVE (NONREACTIVE)
[2024-04-06 09:15] LABS: HCV Ab Non Reactive (Non Reactive)
== END 2024-04-04 21:39 | disposition home or self-care (01) ==
PROVIDERS: Emergency Provider Emergency Medicine; PCP Nurse Practitioner Family
DX: J43.9 Emphysema, unspecified (principal); F41.9 Anxiety disorder, unspecified; T85.43XA Leakage of breast prosthesis and implant, initial encounter; R53.1 Weakness; R42 Dizziness and giddiness; R41.9 Unspecified symptoms and signs involving cognitive functions and awareness
CPT/HCPCS: 70450; 70496; 70498; 71275; 72125; 80053; 82803; 83735; 84100; 84436; 84443; 84484; 85025; 86803; 87389; 93005; 96361; 96374; 96375; 99285; J1885; J2060; J2765; J7120; Q9967

== ENCOUNTER 2024-04-13 18:13 | Emergency (ER) | payer MEDICARE, SELFPAY ==
[2024-04-13 18:15] VITALS: BP 113/89; PULSE 76; RESP 18; TEMP 36.4; O2SAT 98; BMI 17.7
--- NOTE | 2024-04-13 18:16 | [facility].EDGENADL ---
Discharge Plan Disposition Patient Disposition: Home, Self-Care Condition: Good Prescriptions Prescriptions: New sulfamethoxazole-trimethoprim [Bactrim DS] 800-160 mg tablet 1 tab PO BID 5 Days Qty: 10 0RF No Action methadone 10 mg/5 mL solution 115 mg PO DAILY nicotine 21-14-7 mg/24 hr patch, TD daily, sequential See Rx Instructions transdermal .COMPLEX Qty: 56 0RF Rx Instructions: apply 1-21 mg NICOTINE PATCH daily for 28 days; follow with 1-14 mg PATCH daily for 14 days, then 1-7mg PATCH daily for 14 days transdermal ergocalciferol (vitamin D2) 1,250 MCG capsule 50,000 unit PO WEEKLY meclizine 25 mg Tablet 25 mg PO TIDP PRN (Reason: Dizziness) 5 Days Qty: 15 0RF Referrals Follow up/Referrals: Zaire Strong APRN [Primary Care Provider] - See instructions Activity Restrictions/Add. Instructions Additional Instructions/Restrictions: Follow-up with your PCP for referral to neurology for further workup of your paresthesias. Additionally you might benefit from a MRI of your spine given that you have had the symptoms for more than 2 weeks. l Clinical Impressions Clinical Impression: Paresthesia Urinary tract infection Qualifiers: Urinary tract infection type: site unspecified Hematuria presence: without hematuria Qualified Code(s): N39.0 - Urinary tract infection, site not specified Instructions Patient Instructions: DI for Urinary Tract Infection (UTI) Print Language Print Language: Slovak Discharge ED Provider: Fernando Bautista General Adult HPI <PEEWEE Calero - Last Filed: 04/13/24 23:18> General Chief complaint: Recheck/Abnormal Lab/Rx Stated complaint: confusion, burning/pain in arms Time Seen by Provider: 04/13/24 18:16 History of Present Illness HPI narrative: Patient presents for evaluation of subjective confusion and pain in her bilateral forearms. Patient reports that she has had a several week history of burning pain in her bilateral forearms and actually has been evaluated for this April 05 nothing is changed and she has seen her PCP who feels that she may have carpal tunnel syndrome and has referred her for further evaluation. However patient reports that she feels like she is more confused lately but denies any chest pain headache fever chills hemoptysis hematochezia melena nausea vomit diarrhea. Related Data Home Medications ?Medication ?Instructions ?Recorded ?Confirmed methadone 10 mg/5 mL oral solution 115 mg PO DAILY hx of drug use 04/24/19 03/01/24 ergocalciferol (vitamin D2) 1,250 50,000 unit PO WEEKLY Supplement 06/25/19 03/01/24 mcg (50,000 unit) capsule Previous Rx's ?Medication ?Instructions ?Recorded meclizine 25 mg tablet 25 mg PO TIDP PRN Dizziness 5 days 07/07/23 #15 tabs nicotine See Rx Instructions transdermal 10/11/23 21mg/24hr-14mg/24hr-7mg/24hr daily .COMPLEX #56 patches transderm patches,sequentl sulfamethoxazole 800 1 tab PO BID 5 days #10 tabs 04/13/24 mg-trimethoprim 160 mg tablet (Bactrim DS) Allergies Allergy/AdvReac Type Severity Reaction Status Date / Time No Known Allergies Allergy Verified 03/01/24 11:02 [facility] <PEEWEE Calero - Last Filed: 04/13/24 23:18> [facility] Disclaimer: The information contained in this section may have been updated after the patient was seen, as this information can be updated by other users. Medical History Tobacco user Pre-operative cardiovascular examination HLD (hyperlipidemia) Abnormal electrocardiogram [ECG] [EKG] Change in vision Dizziness Screening for lung cancer Pulmonary emphysema Smoking greater than 30 pack years Tobacco use Seasonal allergies Dyspnea on exertion Tobacco abuse counseling Substance abuse in remission Claudication Leg pain Discoloration of skin of lower leg Abnormal ECG Tobacco use Vitamin D insufficiency Arthritis Fibromyalgia Migraine COPD (chronic obstructive pulmonary disease) Depression Anxiety Surgical History H/O: hysterectomy H/O bilateral breast implants Hx of tonsillectomy Family History Other Alcoholism Anemia Bleeding disorder Cancer Heart attack Hypertension Substance abuse Social History Smoking Status: Current every day smoker tobacco type: cigarettes packs per day: 2 second hand exposure: Yes alcohol intake: never counseling provided: none substance use type: former substance user, crack/cocaine, heroin and other (01/13/22-Last use 2 years ) current occupational status: unemployed Travel in the last 8 weeks: None household members: spouse housing: house caffeine: Yes Other Medical History Have you received the Flu Vaccine for this season: No Have you received the Pneumonia Vaccine: No <PEEWEE Calero - Last Filed: 04/13/24 23:18> ROS Obtained: Yes Systems reviewed as appropriate & no additional complaints except as documented Physical Exam <PEEWEE Calero - Last Filed: 04/13/24 23:18> General General appearance: alert and in no apparent distress Respiratory Respiratory exam: Present normal lung sounds bilaterally Cardiovascular Cardiovascular exam: Present regular rate Neurological Exam Neurological exam: Present alert and oriented X3 Medical Decision Making <PEEWEE Calero - Last Filed: 04/13/24 23:18> Medical Records Medical records reviewed: Yes I reviewed the patient's medical records. Screening: Per USPSTF and CDC recommendations, given the prevalence of disease in our region, it is our hospital?s policy to screen for HIV and viral Hepatitis for all patients aged 18 and over and those with ongoing risk factors. [place] Inquiry Pt receiving controlled substance: No Vital Signs: 04/13/24 18:15 04/13/24 19:00 04/13/24 19:30 Temperature 97.6 F Temperature Source Oral Pulse Rate 78 84 Pulse Rate [Radial] 76 Respiratory Rate 18 Blood Pressure 139/88 170/95 H Blood Pressure [Right Arm] 113/89 Blood Pressure Mean [Right Arm] 97 Blood Pressure Source Blood Pressure Source [Right Arm] Automatic Cuff Blood Pressure Position Blood Pressure Position [Right Arm] Sitting 02 Sat by Pulse Oximetry 98 97 94 L Oxygen Delivery Method Room Air 04/13/24 20:00 04/13/24 20:30 04/13/24 20:45 Temperature 97.9 F Temperature Source Oral Pulse Rate 80 85 91 H Pulse Rate [Radial] Respiratory Rate 18 Blood Pressure 159/93 H 149/95 H 149/95 H Blood Pressure [Right Arm] Blood Pressure Mean [Right Arm] Blood Pressure Source Automatic Cuff Blood Pressure Source [Right Arm] Blood Pressure Position Supine Blood Pressure Position [Right Arm] 02 Sat by Pulse Oximetry 99 97 Oxygen Delivery Method Room Air Lab Data Lab results reviewed: Yes I reviewed the patient's lab results. Lab Results 04/13/24 18:29: WBC 6.5, RBC 5.41 H, Hgb 16.7 H, Hct 51.5 H, MCV 95.1, MCH 30.9, MCHC 32.4, RDW 14.2, Plt Count 258, MPV 7.9, Neut % (Auto) 62.4, Lymph % (Auto) 29.4, Nash % (Auto) 7.2, Eos % (Auto) 1.0, Baso % (Auto) 4.9 H, Neut # (Auto) 4.1, Lymph # (Auto) 1.9, Nash # (Auto) 0.5, Eos # (Auto) 0.1, Baso # (Auto) 0.3 H, ESR 1, Sodium 137, Potassium 4.1, Chloride 96 L, Carbon Dioxide 36 H, Anion Gap 9.1, BUN 15, Creatinine 0.90, Estimated Creat Clear 55, Estimated GFR 65, Est GFR ( Amer) 78, Glucose 106 H, Calcium 9.2, Phosphorus 4.4, Magnesium 2.3, Total Creatine Kinase 148 H, C-Reactive Protein 0.8 04/13/24 19:49: Urine Color Yellow, Urine Appearance Clear, Urine pH 7.0, Ur Specific Carmichaels 1.010, Urine Protein Negative, Urine Glucose (UA) Negative, Urine Ketones Negative, Urine Blood Trace-i, Urine Nitrate Negative, Urine Bilirubin Negative, Urine Urobilinogen 0.2, Ur Leukocyte Esterase 1+ A, Urine RBC None, Urine WBC 10-20, Ur Squamous Epith Cells 3-5, Urine Bacteria Trace 04/13/24 20:37: Lactate 0.9 04/13/24 18:29 04/13/24 18:29 Orders (Tests/Meds): ED MEDICATIONS Discontinued Medications Generic Name Dose Route Start Last Admin Trade Name Freq PRN Reason Stop Dose Admin Acetaminophen 1,000 mg 04/13/24 18:41 04/13/24 18:52 Acetaminophen 500mg Tab PO 04/13/24 18:42 1,000 mg ONCE ONE Administration Ketorolac Tromethamine 15 mg 04/13/24 18:41 04/13/24 18:52 Ketorolac 30mg/Ml Vial IV 04/13/24 18:42 15 mg ONCE ONE Administration ORDERS Category Date Time Status Consult Legal Job Titles [CONS] Routine Cons 04/13/24 19:11 Active BMP [Basic Metabolic Panel] Stat Lab 04/13/24 18:29 Completed CBC w/Auto Diff [Complete Blood Count Auto Diff] Stat Lab 04/13/24 18:29 Completed CK [Creatine Kinase] Stat Lab 04/13/24 18:29 Completed CRP [C-Reactive Protein] Stat Lab 04/13/24 18:29 Completed ESR [Erythrocyte Sedimentation Rate] Stat Lab 04/13/24 18:29 Completed Lactic Acid Stat Lab 04/13/24 20:37 Completed Magnesium Stat Lab 04/13/24 18:29 Completed Phosphorous Stat Lab 04/13/24 18:29 Completed UA [Urinalysis and Microscopic] Stat Lab 04/13/24 19:49 Completed Urine Culture Stat Micro 04/13/24 19:49 Received Medical Decision Narrative: In summary patient is a 58-year-old female who presents to the emergency department for evaluation of self-reported confusion and bilateral forearm burning .. Patient is hemodynamically stable upon arrival, afebrile. Physical exam is remarkable for no focal neurologic deficits Glascow coma score 15 patient is awake alert and oriented to person place and circumstance and has capacity for decision-making. Patient has no muscle weakness in the bilateral upper extremities has no paresthesias. I am unable to elicit a positive Tinel's or Phalen's making carpal tunnel less likely. There is no provoking or relieving factors on exam for the paresthesias she is experiencing.. Differential diagnosis includes infection versus encephalopathy versus electrolyte disturbance versus rhabdo etc. Initial workup will be conducted with hematologic labs urinalysis. Initial interventions include Toradol Tylenol. Initial workup reviewed by me shows that her white count is normal with no shift, her CMP is normal and unremarkable, her CK is slightly elevated at 148, CRP is normal at 0.8 her sed rate is 1 all of her electrolytes are normal however urinalysis shows trace blood but is nitrite and leukocyte Estrace positive with microscopic scopic exam showing no red blood cells 10-20 white cells 3-5 epithelial cells and trace bacteria. Upon repeat evaluation patient did have some improvement in her constitutional symptoms. Given this patient is appropriate for discharge with a prescription for Bactrim with first dose given here. Patient is encouraged to follow-up with the workup established by her PCP for her symptoms and her forearms. <Fernando Bautista MD - Last Filed: 04/13/24 23:37> Vital Signs: 11/08/24 18:15 04/13/24 19:00 04/13/24 19:30 Temperature 97.6 F Temperature Source Oral Pulse Rate 78 84 Pulse Rate [Radial] 76 Respiratory Rate 18 Blood Pressure 139/88 170/95 H Blood Pressure [Right Arm] 113/89 Blood Pressure Mean [Right Arm] 97 Blood Pressure Source Blood Pressure Source [Right Arm] Automatic Cuff Blood Pressure Position Blood Pressure Position [Right Arm] Sitting 02 Sat by Pulse Oximetry 98 97 94 L Oxygen Delivery Method Room Air 04/13/24 20:00 04/13/24 20:30 04/13/24 20:45 Temperature 97.9 F Temperature Source Oral Pulse Rate 80 85 91 H Pulse Rate [Radial] Respiratory Rate 18 Blood Pressure 159/93 H 149/95 H 149/95 H Blood Pressure [Right Arm] Blood Pressure Mean [Right Arm] Blood Pressure Source Automatic Cuff Blood Pressure Source [Right Arm] Blood Pressure Position Supine Blood Pressure Position [Right Arm] 02 Sat by Pulse Oximetry 99 97 Oxygen Delivery Method Room Air Lab Data Lab Results 04/13/24 18:29: WBC 6.5, RBC 5.41 H, Hgb 16.7 H, Hct 51.5 H, MCV 95.1, MCH 30.9, MCHC 32.4, RDW 14.2, Plt Count 258, MPV 7.9, Neut % (Auto) 62.4, Lymph % (Auto) 29.4, Nash % (Auto) 7.2, Eos % (Auto) 1.0, Baso % (Auto) 4.9 H, Neut # (Auto) 4.1, Lymph # (Auto) 1.9, Nash # (Auto) 0.5, Eos # (Auto) 0.1, Baso # (Auto) 0.3 H, ESR 1, Sodium 137, Potassium 4.1, Chloride 96 L, Carbon Dioxide 36 H, Anion Gap 9.1, BUN 15, Creatinine 0.90, Estimated Creat Clear 55, Estimated GFR 65, Est GFR ( Amer) 78, Glucose 106 H, Calcium 9.2, Phosphorus 4.4, Magnesium 2.3, Total Creatine Kinase 148 H, C-Reactive Protein 0.8 04/13/24 19:49: Urine Color Yellow, Urine Appearance Clear, Urine pH 7.0, Ur Specific Carm[place]aels 1.010, Urine Protein Negative, Urine Glucose (UA) Negative, Urine Ketones Negative, Urine Blood Trace-i, Urine Nitrate Negative, Urine Bilirubin Negative, Urine Urobilinogen 0.2, Ur Leukocyte Esterase 1+ A, Urine RBC None, Urine WBC 10-20, Ur Squamous Epith Cells 3-5, Urine Bacteria Trace 04/13/24 20:37: Lactate 0.9 Orders (Tests/Meds): ED MEDICATIONS Discontinued Medications Generic Name Dose Route Start Last Admin Trade Name Ean PRN Reason Stop Dose Admin Acetaminophen 1,000 mg 04/13/24 18:41 04/13/24 18:52 Acetaminophen 500mg Tab PO 04/13/24 18:42 1,000 mg ONCE ONE Administration Ketorolac Tromethamine 15 mg 04/13/24 18:41 04/13/24 18:52 Ketorolac 30mg/Ml Vial IV 04/13/24 18:42 15 mg ONCE ONE Administration ORDERS Category Date Time Status Consult Legal Job Titles [CONS] Routine Cons 04/13/24 19:11 Active BMP [Basic Metabolic Panel] Stat Lab 04/13/24 18:29 Completed CBC w/Auto Diff [Complete Blood Count Auto Diff] Stat Lab 04/13/24 18:29 Completed CK [Creatine Kinase] Stat Lab 04/13/24 18:29 Completed CRP [C-Reactive Protein] Stat Lab 04/13/24 18:29 Completed ESR [Erythrocyte Sedimentation Rate] Stat Lab 04/13/24 18:29 Completed Lactic Acid Stat Lab 04/13/24 20:37 Completed Magnesium Stat Lab 04/13/24 18:29 Completed Phosphorous Stat Lab 04/13/24 18:29 Completed UA [Urinalysis and Microscopic] Stat Lab 04/13/24 19:49 Completed Urine Culture Stat Micro 04/13/24 19:49 Received Medical Decision Narrative: In summary patient is a 58-year-old female who presents to the emergency department for evaluation of self-reported confusion and bilateral forearm burning .. Patient is hemodynamically stable upon arrival, afebrile. Physical exam is remarkable for no focal neurologic deficits Glascow coma score 15 patient is awake alert and oriented to person place and circumstance and has capacity for decision-making. Patient has no muscle weakness in the bilateral upper extremities has no paresthesias. I am unable to elicit a positive Tinel's or Phalen's making carpal tunnel less likely. There is no provoking or relieving factors on exam for the paresthesias she is experiencing.. Differential diagnosis includes infection versus encephalopathy versus electrolyte disturbance versus rhabdo etc. Initial workup will be conducted with hematologic labs urinalysis. Initial interventions include Toradol Tylenol. Initial workup reviewed by me shows that her white count is normal with no shift, her CMP is normal and unremarkable, her CK is slightly elevated at 148, CRP is normal at 0.8 her sed rate is 1 all of her electrolytes are normal however urinalysis shows trace blood but is nitrite and leukocyte Estrace positive with microscopic scopic exam showing no red blood cells 10-20 white cells 3-5 epithelial cells and trace bacteria. Upon repeat evaluation patient did have some improvement in her constitutional symptoms. Given this patient is appropriate for discharge with a prescription for Bactrim with first dose given here. Patient is encouraged to follow-up with the workup established by her PCP for her symptoms and her forearms. I was consulted by the BHAVNA, and we discussed the complexity of the problems being addressed. I approved the treatment and management plan for this patient's care in the Emergency Department, thus performing a substantive portion of the medical decision making. Fernando Bautista MD Critical Care <PEEWEE Calero - Last Filed: 04/13/24 23:18> Critical Care Time Critical Care Time: No
[2024-04-13 18:49] LABS: Basophils # 0.3 K/mm3 (0-0.2); Basophils % 4.9 % (0.1-2.0); Eosinophils # 0.1 K/mm3 (0.0-0.4); Hematocrit 51.5 % (37.0-47.0); Hemoglobin 16.7 g/dL (12.2-16.2); Lymphocytes # 1.9 K/mm3 (0.7-4.5); Lymphocytes % 29.4 % (10-50); Mean Corpuscular HGB Conc 32.4 g/dL (31.8-35.4); Mean Corpuscular Hemoglobin 30.9 pg (27.0-31.2); Mean Corpuscular Volume 95.1 fl (81-99); Mean Platelet Volume 7.9 fl (7.4-10.4); Monocytes # 0.5 K/mm3 (0.1-1.0); Monocytes % 7.2 % (1.7-9.3); Neutrophils # 4.1 K/mm3 (1.8-7.8); Neutrophils % 62.4 % (37.0-80.0); Platelet Count 258 K/mm3 (142-424); Red Blood Count 5.41 M/mm3 (4.20-5.40); Red Cell Distribution Width 14.2 % (11.5-17.5); White Blood Count 6.5 K/mm3 (4.8-10.8)
[2024-04-13] MEDS: ACETAMINOPHEN 500MG TAB 1000 MG PO (18:52)
[2024-04-13] MEDS: KETOROLAC 30MG/ML VIAL 15 MG IV (18:52)
[2024-04-13 19:00] VITALS: BP 139/88; PULSE 78; O2SAT 97
[2024-04-13 19:11] LABS: Erythrocyte Sedimentation Rate 1 mm/hr (0-30)
[2024-04-13 19:23] LABS: Chloride 96 mmol/L (98-107); Potassium 4.1 mmoL/L (3.5-5.1); Sodium 137 mmol/L (136-145)
[2024-04-13 19:26] LABS: Anion Gap 9.1 mEq/L (5-15); Blood Urea Nitrogen 15 mg/dl (7-17); Carbon Dioxide 36 mmol/L (22.0-30.0); Creatine Kinase 148 U/L (30-135); Creatinine Clearance Estimated 55 mL/min (50-200); Estimated Glomerular Filt Rate 65 ml/min (>60); GFR (African American) 78 ML/MIN (>60)
[2024-04-13 19:27] LABS: Calcium 9.2 mg/dl (8.4-10.2); Glucose 106 mg/dl (74-100); Phosphorous 4.4 mg/dl (2.5-4.5)
[2024-04-13 19:29] LABS: Magnesium 2.3 mg/dl (1.6-2.3)
[2024-04-13 19:30] VITALS: BP 170/95; PULSE 84; O2SAT 94
[2024-04-13 19:32] LABS: C-Reactive Protein 0.8 mg/L (0-4)
[2024-04-13 20:00] VITALS: BP 159/93; PULSE 80; O2SAT 99
[2024-04-13 20:11] LABS: Microscopic, Urine URINE MICROSCOPIC (MICROSCOPIC)
[2024-04-13 20:12] LABS: Appearance,Urine CLEAR (Clear); Bilirubin,Urine Negative (Negative); Blood, Urine TRACE-I (Negative); Color,Urine YELLOW (Yellow); Glucose,Urine (UA) Negative (Negative); Ketones,Urine Negative (Negative); Leukocyte Esterase,Urine 1+ (Negative); Nitrate,Urine Negative (Negative); Protein,Urine Negative (Negative); Urobilinogen,Urine 0.2 EU/dl (0.2)
[2024-04-13 20:24] LABS: Bacteria,Urine Trace /lpf
[2024-04-13 20:30] VITALS: BP 149/95; PULSE 85; O2SAT 97
[2024-04-13 20:45] VITALS: BP 149/95; PULSE 91; RESP 18; TEMP 36.6; O2SAT 98
[2024-04-13 20:51] LABS: Lactic Acid 0.9 mmol/L (0.7-2.1)
== END 2024-04-13 20:50 | disposition home or self-care (01) ==
PROVIDERS: Physician Assistant; Emergency Provider Emergency Medicine; PCP Nurse Practitioner Family
DX: N39.0 Urinary tract infection, site not specified (principal); R20.2 Paresthesia of skin; M79.601 Pain in right arm; M79.602 Pain in left arm; R41.0 Disorientation, unspecified
CPT/HCPCS: 80048; 81001; 82550; 83605; 83735; 84100; 85025; 85651; 86140; 87086; 96374; 99283; J1885

== ENCOUNTER 2025-02-02 10:15 | Emergency (ER) | payer MEDICARE, SELFPAY ==
--- OUTSIDE RECORDS SUMMARY | 2025-01-22 01:48 | XMS_ITS | Encounter Summary ---
Author Organization [facility] Address [address] [place] [address] Care Team Providers [facility] Manager Name Role Phone Zaire Strong APRN Primary Care Provider [phone] Source Comments This information has been disclosed to you from confidential records protectfrom disclosure by state law. You shall make no further disclosure of thisinformation without the specific, written, and informed release of theindividual to whom it pertains, or as otherwise permitted by law. A generalauthorization for the release of medical or other information is not sufficientfor the purposes of the release of HIV test results or diagnoses. [id number] Reason for Visit * Reason Comments Shortness of Breath Foot Pain Encounter Details Date Type Department Care Team (Late st Contact Info) Description 01/22/2025 1:48 AM EDT - 01/22/2025 6:03 AM EDT Emergency [facility] Emergency Department [facility] [place] [address] Jorge Bernstein MD [address] [place] [address] Dyspnea, unspecified type (Primary Dx) Discharge Disposition: Home or Self Care WITHOUT Home Care Services Social History Tobacco Use Types Packs/Day Years Used Date Smoking Tobacco: Never Assessed Comments No Sex and Gender Information Value Date Recorded Sex Assigned at Not on file Legal Sex Female 7:24 PM EST Gender Identity Not on file Sexual Orientation Not on file documented as of this encounter Last Filed Vital Signs Vital Sign Reading Time Taken Comments Blood Pressure 114/86 01/22/2025 3:25 AM EDT Pulse 57 01/22/2025 3:25 AM EDT Temperature 36.7 C (98.1 F) 01/21/2025 11:04 PM EDT Respiratory Rate 15 01/22/2025 3:25 AM EDT Oxygen Saturation 92% 01/22/2025 3:25 AM EDT Inhaled Oxygen Concentration 92% 01/22/2025 3 :25 AM EDT Weight - - Height - - Body Mass Index - - documented in this encounter Discharge Instructions * Discharge Instructions* Adriana Castro MD - 01/22/2025 5:23 AM EDT You were seen in the emergency department for shortness of breath and leg pain. Your labs and imaging were normal. We recommend following up with your primary care doctor for more outpatient workup of your worsening shortness of breath. This may be due to worsening COPD or other complications of COPD including pulmonary hypertension. Please return to the emergency department if you develop severeshortness of breath, crushing chest pain, asymmetric leg swelling, or lightheadedness/loss of consciousness. documented in this encounter Medications at Time of Discharge methadone (DOLOPHINE) 10 mg/mL Take 0.5 mLs (5 mg total) by mouth daily. documented as of this encounter Progress Notes * Jorge Bernstein MD - 01/22/2025 5:10 AM EDT ED Attending Attestation Note Date of service: 01/22/2025 This patient was seen by the resident physician. I have seen and examined the patient, agree with the workup, evaluation, management and diagnosis. The care plan has been discussed and I concur. I have reviewed the ECG and concur with the resident's interpretation. My assessment reveals a 59 y.o. female who presents to the emergency room today complaint of cough swelling in her legs shortness of breath. On arrival she is well-appearing, thin and looks older than stated age, but breathing comfortably and in no distress. She has diminished breath sounds in the bilateral bases more clear in the anterior and superior lung donahue with some faint expiratory wheeze s. There is trace pedal edema noted bilaterally no pain with calf squeeze. No audible murmurs rubs or gallops. documented in this encounter H&P Notes * Adriana Castro MD - 01/22/2025 2:[address] [facility] ED Note Date of Service: 01/22/2025 Reason for Visit: Shortness of Breath and Foot Pain Patient History HPI Carolyn Saavedra is a 59 y.o. female with a history of COPD, tobacco use disorder who presents to theemergency department with several months of shortness of breath, intermittent pleuritic chest pain,and bilateral lower extremity swelling and tingling. Patient reports her shortness of breath has progressively worsened over several months. She does endorse several weeks of a productive cough with y ellow-colored sputum. She is not on any medications for her COPD. She currently denies any chest pain but her daughter at bedside says she has been intermittently complaining of a pleuritic type chest pain. She denies any exogenous hormone use, recent immobilization, hemoptysis, malignancy, or history of DVT/PE. She does endorse a few days of symmetric bilateral lower extremity edema. No fevers. No past medical history on file. No past surgical history on file. Physical Exam Vitals: 01/21/25 2304 01/22/25 0152 01/22/25 0325 BP: (!) 161/91 (!) 171/95 114/86 BP Location: Left upper arm Right upper arm Left upper arm Patient Position: Sitting Lying Sitting BP Cuff Size: Small Small Small Pulse: 80 77 57 Resp: 16 15 15 Temp: 98.1 ??F (36.7 ??C) TempSrc: Oral Oral SpO2: 97% 98% 92% General: Chronically ill appearing. Not in acute distress. Answering questions appropriately and incomplete sentences. Eyes: EOMI. Conjunctiva clear. ENT: Tolerating oral secretions. Moist mucous membranes. Pulmonary: Distant breath sounds that are clear and equal bilaterally. No tachypnea or accessory muscle use. Cardiac: Regular rate and rhythm. Abdomen: Soft. Non-distended. Non-tender. Extremities: Trace lower extremity swelling in the bilateral ankles, mildly worse on the left without erythema or warmth. No posterior calf tenderness to palpation Skin: Warm, dry, no rash on exposed areas. Neuro: Alert and oriented x4. Speech clear and fluent. Moving all four extremities equally. Psych: Appropriate mood, full affect. Thought content clear, coherent, and goal directed. Able to focus and sustain attention. Memory sufficient for interview. Diagnostic Studies Labs: Please see EMR for labs obtained during this patient encounter Radiology: Please see EMR for images obtained during this patient encounter EKG Interpretation: Rhythm: normal sinus Rate: normal [place]: normal Ectopy: none Conduction: right bundle branch block ST Segments: no acute change T Waves: no acute change Q Waves: none Clinical Impression: non-specific EKG Comparison: No prior available for comparison ED Course and MDM 59-year-old female with a history of COPD and tobacco use who presents to the emergency department with several months of worsening shortness of breath, intermittent pleuritic chest pain, and a few days of mild bilateral lower extremity swelling. On arrival she is mildly hypertensive but otherwise h emodynamically stable and satting well on room air. On exam she is comfortable appearing and does not look short of breath. She has distant breath sounds bilaterally without wheezes. The patient's pulmonary exam and VBG showing hypercarbia without an associated acidosis is suggestive against an acute COPD exacerbation. Her chest x-ray does not show any evidence of pneumonia, pneumothorax, or pleural effusion. Hemoglobin is at baseline. EKG shows a right bundle branch block without any acute ischemic changes and her high-sensitivity troponin is reassuring x 2. She has a heart score of 2. Kidney function is at baseline. No hepatobiliary derangements aside from mild low protein. Her BNP is reassuring at 112 and she does not have significant signs of volume overload on exam. Given her pleuritic type chest pain, history of COPD, and reported leg swelling a D-dimer was obtained which was negative thus reassuring against a pulmonary embolism. The etiology of her shortness ofbreath remains unclear but may be due to chronic worsening of her COPD versus other associated complications such as pulmonary hypertension. The patient was encouraged to follow-up with her primary care doctor within the next week for further outpatient management and risk stratification Medications received during this ED visit: Medications - No data to display Medical Decision Making Problems Addressed: Dyspnea, unspecified type: complicated acute illness or injury Amount and/or Complexity of Data Reviewed Labs: ordered. ECG/medicine tests: ordered. Impression 1. Dyspnea, unspecified type Plan Patient deemed appropriate for discharge, see DCI provided. Discussed ED course, findings, and treatments with patient, strict return precautions reviewed, all questions answered. Discharged home in stable condition. The patient was evaluated by myself and the ED Attending Physician. All management and disposition plans were discussed and agreed upon. Randee Castro MD Emergency Medicine PGY-3 This note was dictated using voice-recognition software, which occasionally leads to inadvertent typographic errors. Adriana Castro MD Resident 01/22/25 0600 Cosigned by Jorge Bernstein MD at 01/22/2025 6:17 AM EDT documented in this encounter Nursing Notes * Irma Shipley RN - 01/21/2025 11:03 PM EDT Pt to ER with c/o bilateral foot pain and burning sensation. Per pt she has been seen several timesbut , no one can give me an answer. Pt also c/o SOB GCS 15 VSS on RA documented in this encounter ED Notes * Kasi Alberts RN - 01/22/2025 5:40 AM EDT Discharge instructions and follow-up care were reviewed and pt verbalized understanding, denies anyquestions or concerns at this time. RN removed pt IV. No further interventions required by RN at this time, no safety concerns. At time of this note, pt is in room waiting for family to return for transport. * Kasi Alberts RN - 01/22/2025 4:41 AM EDT Pt ambulated back from the bathroom on her own without issue. No assistance needed * Kasi lAberts RN - 01/22/2025 4:35 AM EDT Pt up out of bed and ambulating to the restroom.No safety concerns, but standby assist reccommendedfor ambulation at this time * Kasi Alberts RN - 01/22/2025 3:24 AM EDT MD at bedside RN introduced self to patient and family. Pt is sitting up in bed with HOB elevated. Her airway is intact and patent, respirations are unlabored, although pt endorses continued shortness of breath. She is on room air maintaining appropriate oxygen saturation. She is AAOx4, GCS 15, and is able to answer questions from MD appropriately and without delay. RN is updating vitals and rounding flowsheets and collecting ordered labs, no further interventionsrequired. Pt bed is in lowest and locked position and there are no safety concerns. Pt care planning is ongoing. * Annie Augustine RN - 01/22/2025 1:56 AM EDT Pt comes in due to sob and bilateral feet swelling. Pt states that the sob has been going on about a week but since gotten worse today and the feet swelling started today. 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 Plan of care is on going. * PEEWEE Ocampo - 01/22/2025 1:48 AM EDT Bed: A15U Expected date: Expected time: Means of arrival: Comments: TRIAGE- Quentin PEEWEE Ocampo 01/22/25 0148 * Kristen Steel RN - 01/21/2025 11:12 PM EDT Patient ambulated to bathroom with steady and easy gait. Urine sample provided. Three urine specimen tubes collected, appropriately labeled, and sent to lab x3. documented in this encounter Miscellaneous Notes * ED Medical Screening Exam - PEEWEE Ocampo - 01/21/2025 11:26 PM EDT [facility] MEDICAL SCREENING EXAM Date of Service: 01/21/2025 Reason for Visit: Shortness of Breath and Foot Pain Abbreviated Patient History History of Present Illness Carolyn Saavedra is a 59 year old female with COPD who presents with difficulty breathing and leg pain. She has experienced difficulty breathing since last night, which has not resolved. There is no fever, chills, nausea, vomiting, abdominal pain, or diarrhea. She has some chest pain, described as not significant, and feels unusually sleepy. She also has a burning sensation in her legs and feet, starting last night and persisting throughout the day. She denies previous similar foot pain. Her current medication includes methadone. No past medical history on file. No past surgical history on file. No current facility-administered medications for this encounter. Current Outpatient Medications Medication Sig methadone Take 0.5 mLs (5 mg total) by mouth daily. Allergies[1] Brief ROS Pertinent positive and negative ROS are documented above in the HPI. Targeted Physical Exam ED Triage Vitals Encounter Vitals Group BP 01/21/25 2304 (!) 161/91 Girls Systolic BP Percentile -- Girls Diastolic BP Percentile -- Boys Systolic BP Percentile -- Boys Diastolic BP Percentile -- Heart Rate 01/21/252303 80 Resp 01/21/252303 16 Temp 01/21/252303 98.1 ??F (36.7 ??C) Temp Source 08/18/25 2304 Oral SpO2 01/21/25 2304 97 % Weight -- Height -- Head Circumference -- Peak Flow -- Pain Score 01/21/25 2300 Seven Pain Loc -- Pain Education -- Exclude from Growth Chart -- General: Well appearing. No acute distress. Head: Atraumatic. Eyes: Sclera anicteric. No conjunctival injection. ENT: Mucous membranes moist. Neck/Back: Supple. Chest/Pulmonary: No respiratory distress. Diminished breath sounds with crackles. Cardiac: Regular rate. Vascular: Extremities warm and perfused. Extremities: 2+ bilateral lower extremity pitting. Abdomen: Non-distended. Neuro: Alert and oriented x 3. No gross neurological deficits. Psych: Normal affect. Skin: No rash. Plan Patient evaluated from the [facility] for a medical screening exam. In short, this is a patient presenting with shortness of breath. To further evaluate their complaints, the following orders have been placed: Orders Placed This Encounter Procedures X-ray Chest PA and Lateral Basic metabolic panel ED HCV Ab Reflex To HCV Quant CBC Differential Influenza A and B, COVID, RSV Combination Assay, HAWK High Sensitivity Troponin BNP Venous blood gas, Line/Syringe ED ECG 12-Lead (MUSE) At this time, the patient is hemodynamically stable and I do not have concern for an emergency medical condition requiring emergent stabilization. The medical screening examination, however, is not considered completed at this time. Should the patient continue to remain in the waiting/triage area of the emergency department, they will continue to be monitored and any diagnostics followed up on astheir individual condition requires for the possible development of an emergency medical condition until the patient is roomed within the emergency department and care assumed by other members of theED team or discharge is warranted based on their exam and evaluation. See primary provider's note for full details and final disposition. Dispo Stable for [facility] while awaiting ED bed. PEEWEE OCAMPO, PA-C [1] No Known Drug Allergies or Adverse Reactions documented in this encounter Plan of Treatment Not on file documented as of this encounter Procedures Procedure Name Priority Date/Time Associated Diagnosis Comments EKG - SCAN 01/24/2025 11:01 AM EDT DDIMER STAT 01/22/2025 3:44 AM EDT HIGH SENSITIVITY TROPONIN STAT 01/22/2025 3:32 AM EDT HEPATIC FUNCTION PANEL STAT 01/22/2025 3:32 AM EDT INFLUENZA A AND B, COVID, RSV COMBINATION ASSAY, HAWK STAT 01/21/2025 11:41 PM EDT HIGH SENSITIVITY TROPONIN STAT 01/21/2025 11:41 PM EDT VENOUS BLOOD GAS, LINE/SYRINGE STAT 01/21/2025 11:41 PM EDT ED HCV AB REFLEX TO HCV QUANT Routine 01/21/2025 11:41 PM EDT DIFFERENTIAL STAT 01/21/2025 11:41 PM EDT CBC STAT 01/21/2025 11:41 PM EDT B NATRIURETIC PEPTIDE STAT 01/21/2025 11:41 PM EDT BASIC METABOLIC PANEL STAT 01/21/2025 11:41 PM EDT XR CHEST PA AND LATERAL DON 01/21/2025 11:30 PM EDT ED ECG 12-LEAD (MUSE) STAT 01/21/2025 11:12 PM EDT documented in this encounter Results * EKG - scan (01/24/2025 11:01 AM EDT) us Scanning Uchhim SCAN DOCS - NO RESULTS Final Res ult * D Dimer (01/22/2025 3:44 AM EDT) D-Dimer 0.50 0.00 - 0.50 ug/mL FEU 01/22/2025 4:25 AM EDT [facility] Comment:The D-dimer test may be used to exclude an acute PE or DVT. In patients with a low to moderate clinical pre-test probability and a D-dimer result <0.50 ug/ml FEU, the likelihood of a PE or DVT is very low. However, a thromboembolic event should not be excluded solely on the basis of the D-dimer level. Increased levels of D- dimer are associated with a PE, DVT, DIC, malignancies, inflammation, sepsis, surgery, trauma, and . Plasma 01/22/2025 3:44 AM EDT 01/22/2025 3:52 AM EDT us Adriana Castro MD LAB BLOOD ORDERABLES Final Result [facility] [address] [place], [place] [address] * (ABNORMAL) Hepatic Function Panel (01/22/2025 3:32 AM EDT) Total Bilirubin 0.3 0.0 - 1.5 mg/dL 01/22/2025 3:55 AM EDT [facility] Bilirubin, Direct 0.1 0.0 - 0.4 mg/dL 01/22/2025 3:55 AM EDT [facility] AST 15 13 - 39 U/L 01/22/2025 3:55 AM EDT [facility] ALT 10 7 - 52 U/L 01/22/2025 3:55 AM EDT [facility] Alkaline Phosphatase 54 36 - 125 U/L 01/22/2025 3:55 AM EDT [facility] Total Protein 5.8(L) 6.4 - 8.9 g/dL 01/22/2025 3:55 AM EDT [facility] Albumin 3.7 3.5 - 5.7 g/dL 01/22/2025 3:55 AM EDT [facility] Bilirubin, Indirect 0.2 0.0 - 1.1 mg/dL 01/22/2025 3:55 AM EDT [facility] Plasma 01/22/2025 3:32 AM EDT 01/22/2025 3:36 AM EDT Jorge Bernstein MD LAB BLOOD ORDERABLES Fi nal Result [facility] [address] * High Sensitivity Troponin (01/22/2025 3:32 AM EDT) [facility] High Sensitivity Troponin 6 0 - 14 ng/L 01/22/2025 4:01 AM EDT [facility] Serum 01/22/2025 3:32 AM EDT 01/22/2025 3:36 AM EDT us Adriana Castro MD LAB BLOOD ORDERABLES Final Result Performing Organization Address City/[facility] Co de Phone Number [facility] [address] * (ABNORMAL) Venous blood gas, Line/Syringe (01/21/2025 11:41 PM EDT) [facility] PH-Line Draw 7.40 7.32 - 7.42 01/21/2025 11:49 PM EDT [facility] PCO2-Line Draw 64(H) 41 - 51 mm Hg 01/21/2025 11:49 PM EDT [facility] PO2-Line Draw 20(L) 25 - 40 mm Hg 01/21/2025 11:49 PM EDT [facility] HCO3-Line Draw 31(H) 24 - 28 mmol/L 01/21/2025 11:49 PM EDT [facility] CO2 Content-Line Draw 42(HH) 25 - 29 mmol/L 01/21/2025 11:49 PM EDT [facility] Comment: The critical result was called to, and read back by, licensed caregiver KRISTEN STEEL RN Base Excess-Line Draw 11.2(H) -2.0 - 3.0 mmol/L 01/21/2025 11:49 PM EDT [facility] %HBO2-Line Draw 26.9(L) 40.0 - 70.0 % 01/21/2025 11:49 PM EDT [facility] Carboxyhgb-Valerie e Draw 11.4 % 01/21/2025 11:49 PM EDT [facility] Comment: CARBOXYHEMOGLOBIN (CO) REFERENCE RANGES: Non-Smokers: <2 % Smokers: <8 % TOXIC: >20 % Methemoglobin- Line Draw 0.0 0.0 - 1.5 % 01/21/2025 11:49 PM EDT [facility] Reduced Hemoglobin-Valerie e Draw 61.7(H) 0.0 - 5.0 % 01/21/2025 11:49 PM EDT [facility] Venous, Line Draw 01/21/2025 11:41 PM EDT 01/21/2025 11:44 PM EDT us Alisa Go Mark PA LAB BLOOD ORDERABLES Final R esult Performing Organization Address City/[facility] Co de Phone Number [facility] [address] [facility] * (ABNORMAL) BNP (01/21/2025 11:41 PM EDT) Pathologist [facility] BNP 112(H) 0 - 100 pg/mL 01/22/2025 12:08 AM EDT [facility] Comment: BNP may be increased in the presence of sacubitril/valsartan (Entresto). Please interpret accordingly. Plasma 01/21/2025 11:4 1 PM EDT 01/21/2025 11:44 PM EDT Narrative [facility] - 01/22/2025 12:08 AM EDT The presence of high concentrations of biotin may cause falsely lowered BNP results. Biotin interference may be seen if an individual is taking >5 mg biotin per day. Interpret BNP results in the context of the patient's clinical presentation. us Alisa Go Mark PA LAB BLOOD ORDERABLES Final R esult [facility] [address] [facility]. [address] * High Sensitivity Troponin (01/21/2025 11:41 PM EDT) High Sensitivity Troponin 6 0 - 14 ng/L 01/22/2025 12:09 AM EDT [facility] Serum 01/21/2025 11:4 1 PM EDT 01/21/2025 11:44 PM EDT us Alisa VIDES LAB BLOOD ORDERABLES Final R esult [facility] [address] [facility] [address], [facility] * Influenza A and B, COVID, RSV Combination Assay, HAWK (01/21/2025 11:41 PM EDT) Influenza A Negative Negative 01/22/2025 1:15 AM EDT [facility] Influenza B Negative Negative 01/22/2025 1:15 AM EDT [facility] RSV Negative Negative 01/22/2025 1:15 AM EDT [facility] SARS-CoV-2 Negative Negative,Not Detected 01/22/2025 1:15 AM EDT [facility] Comment:This is an FDA-appro eric amplified nucleic acid assay performed by real- time PCR. Nasopharyngeal Swab NASOPHARYNGEAL STRUCTURE / Unknown 01/21/2025 11:41 PM EDT 01/22/2025 12:31 AM EDT us Alisa VIDES BODY FLUIDS AND STOOLS ORDER СЕРГЕЙ Final Result [facility] [address] [facility] [place] [address], [facility] * Differential (01/21/2025 11:41 PM EDT) Neutrophils Relative 63.0 40.0 - 80.0 % 01/21/2025 11:56 PM EDT [facility] Lymphocytes Relative 26.9 15.0 - 45.0 % 01/21/2025 11:56 PM EDT [facility] Monocytes Relative 8.7 0.0 - 12.0 % 01/21/2025 11:56 PM EDT [facility] Eosinophils Relative 0.9 0.0 - 8.0 % 01/21/2025 11:56 PM EDT [facility] Basophils Relative 0.5 0.0 - 1.0 % 01/21/2025 11:56 PM EDT [facility] nRBC 0 0 - 0 /100 WBC 01/21/2025 11:56 PM EDT [facility] Neutrophils Absolute 3,780 1,520 - 8,640 /uL 01/21/2025 11:56 PM EDT [facility] Lymphocytes Absolute 1,614 570 - 4,860 /uL 01/21/2025 11:56 PM EDT [facility] Monocytes Absolute 522 0 - 1,296 /uL 01/21/2025 11:56 PM EDT [facility] Eosinophils Absolute 54 0 - 864 /uL 01/21/2025 11:56 PM EDT [facility] Basophils Absolute 30 0 - 108 /uL 01/21/2025 11:56 PM EDT [facility] Whole Blood 01/21/2025 11:4 1 PM EDT 01/21/2025 11:46 PM EDT us Alisa VIDES LAB BLOOD ORDERABLES Final R esult Performing Organization Address City/State/[facility] Co de Phone Number [facility] [address] * (ABNORMAL) CBC (01/21/2025 11:41 PM EDT) WBC 6.0 3.8 - 10.8 10E3/uL 01/21/2025 11:56 PM EDT [facility] RBC 5.46(H) 3.80 - 5.10 10E6/uL 01/21/2025 11:56 PM EDT [facility] Hemoglobin 17.3(H) 11.7 - 15.5 g/dL 01/21/2025 11:56 PM EDT [facility] Hematocrit 49.5(H) 35.0 - 45.0 % 01/21/2025 11:56 PM EDT [facility] MCV 90.6 80.0 - 100.0 fL 01/21/2025 11:56 PM EDT [facility] MCH 31.7 27.0 - 33.0 pg 01/21/2025 11:56 PM EDT [facility] MCHC 35.0 32.0 - 36.0 g/dL 01/21/2025 11:56 PM EDT [facility] RDW 14.7 11.0 - 15.0 % 01/21/2025 11:56 PM EDT [facility] Platelets 240 140 - 400 10E3/uL 01/21/2025 11:56 PM EDT [facility] MPV 8.3 7.5 - 11.5 fL 01/21/2025 11:56 PM EDT [facility] Whole Blood 01/21/2025 11:4 1 PM EDT 01/21/2025 11:46 PM EDT Alisa Flores PA LAB BLOOD ORDERABLES Final R esult [facility] [address] [facility]. [address] * ED HCV Ab Reflex To HCV Quant (01/21/2025 11:41 PM EDT) HCV Ab Nonreactive Nonreactive 01/22/2025 12:53 AM EDT [facility] Comment:Health Department no tified in accordance with reportable infectious disease guidelines. HCVAB Number 0.02 0.00 - 0.79 S/CO 01/22/2025 12:53 AM EDT [facility] Serum 01/21/2025 11:4 1 PM EDT 01/21/2025 11:46 PM EDT us Alisa Flores PA LAB BLOOD ORDERABLES Final R esult [facility] [address] [facility]. [address] * (ABNORMAL) Basic metabolic panel (01/21/2025 11:41 PM EDT) Sodium 137 133 - 146 mmol/L 01/22/2025 12:01 AM EDT [facility] Potassium 4.3 3.5 - 5.3 mmol/L 01/22/2025 12:01 AM EDT [facility] Comment:Hemolysis Present: R esults may be influenced artificially. Recommend recollection as clinically indicated. Chloride 97(L) 98 - 110 mmol/L 01/22/2025 12:01 AM EDT [facility] CO2 34(H) 21 - 33 mmol/L 01/22/2025 12:01 AM EDT [facility] Anion Gap 6 3 - 16 mmol/L 01/22/2025 12:01 AM EDT [facility] BUN 14 7 - 25 mg/dL 01/22/2025 12:01 AM EDT [facility] Creatinine 0.80 0.60 - 1.30 mg/dL 01/22/2025 12:01 AM EDT [facility] Glucose 92 70 - 100 mg/dL 01/22/2025 12:01 AM EDT [facility] Calcium 9.5 8.6 - 10.3 mg/dL 01/22/2025 12:01 AM EDT [facility] Osmolality, Calculated 284 278 - 305 mOsm/kg 01/22/2025 12:01 AM EDT [facility] EGFR 86 01/22/2025 12:01 AM EDT [facility] Comment:As of 2021, the estimated GFR is calculated using the 2020 Chronic Kidney Disease Epidemiology Collaboration (CKD-EPI) equation. In line with the NKF-ASN Task Force Recommendations, this equation does not include a coefficient for race. A single eGFR value is calculated for each patient. The reference interval is >60 mL/min/1.73m2. eGFR values greater than 90 will be reported as >90mL/min/1.73m2. Reference: Joel C, Josue M, Nikki [place], Beena [place], Ánegl [place], Demond [place], et al. A Unifying Approach for GFR Estimation: Recommendations of the NKF-ASN Task Force on Reassessing the inclusion of Race in Diagnosing Kidney Disease. Am J Kidney Dis. 2020. Plasma 01/21/2025 11:4 1 PM EDT 01/21/2025 11:44 PM EDT us Alisa VIDES LAB BLOOD ORDERABLES Final R esult [facility] [address] [place] [address], [facility] * X-ray Chest PA and Lateral (01/21/2025 11:30 PM EDT) Anatomical Region Laterality Modality Chest Radiographic Lani ging 01/21/2025 11:2 7 PM EDT Impressions 01/21/2025 11:53 PM EDT IMPRESSION: No acute cardiopulmonary abnormality. Approved by Ja Wilkinson MD on 01/21/2025 11:47 PM EDT I have personally reviewed the images and I agree with this report. Report Verified by: Moose Pabon MD at 01/21/2025 11:53 PM EDT Narrative 01/21/2025 11:53 PM EDT EXAM: XR CHEST PA AND LATERAL INDICATION: Shortness of breath TECHNIQUE: 2 views of the chest. COMPARISON: None. FINDINGS: Medical Devices: None. Heart and Mediastinum: Cardiomediastinal silhouette is within normal limits. Lungs and Pleura: Lungs are clear with no pleural effusions or evidence of pneumothorax. Bones and Soft tissues: No acute abnormalities. Procedure Note Fara Pabon MD - 01/21/2025 EXAM: XR CHEST PA AND LATERAL INDICATION: Shortness of breath TECHNIQUE: 2 views of the chest. COMPARISON: None. FINDINGS: Medical Devices: None. Heart and Mediastinum: Cardiomediastinal silhouette is within normallimits. Lungs and Pleura: Lungs are clear with no pleural effusions or evidence ofpneumothorax. Bones and Soft tissues: No acute abnormalities. IMPRESSION: No acute cardiopulmonary abnormality. Approved by Ja Wilkinson MD on 01/21/2025 11:47 PM EDT I have personally reviewed the images and I agree with this report. Report Verified by: Moose Pabon MD at 01/21/2025 11:53 PM EDT us Alisa VIDES IMG DIAGNOSTIC IMAGING ORDER СЕРГЕЙ Final Result * ED ECG 12-Lead (MUSE) (01/21/2025 11:12 PM EDT) 01/21/2025 11:1 2 PM EDT Narrative MUSE - 01/22/2025 7:49 AM EDT Ventricular Rate: 80 BPM Atrial Rate: 80 BPM P-R Interval: 112 ms QRS Duration: 116 ms QT: 416 ms QTc: 479 ms P [place]: 85 degrees R [place]: 106 degrees T [place]: 67 degrees Diagnosis Line: ^ INTERPRETATION NOT AVAILABLE--ECG READ IN ER ^ Confirmed by PHYSICIAN, ER ([id number]), supervising film or videotape editor Cari Jarvis ([id number]) on 01/22/2025 7:49:14 AM us Jorge Bernstein MD ECG ORDERABLES Final R esult CRETE documented in this encounter Visit Diagnoses Diagnosis Dyspnea, unspecified type- Primary documented in this encounter Care Teams [facility] Manager Relationship Specialty Start Date End Date Zaire Strong APRN [address] [place], [place] [id number] PCP - General Family Medicine 01/22/25 documented as of this encounter
[2025-02-02] VITALS (9 sets, daily range): BP systolic 109–175; BP diastolic 68–100; PULSE 62–83; RESP 16–18; TEMP 36.9–37; O2SAT 87–98; BMI 18.3
--- OUTSIDE RECORDS SUMMARY | 2025-02-02 10:22 | XMS_ITS | Clinical Summary ---
Author Organization [facility] Address [address] [place] [address] Phone Care Team Providers Care Apprenticeship Training Representative Name Role Phone Sulema Loyd MD Primary Care Physician [phone] [ ] Conditions or Problems Problem Name Problem Code Onset Date Status Entry Date Provider Comment Standard Description Annotate Edema, ankles 74921655 (SNOMED CT) 10/12 Active 10/12 Summer Carvalho APRN BCADM Ankle edema C O P D 02053252 (SNOMED CT) Active 09/04 Sulema Loyd MD Chronic obstructive pulmonary disease Family History of Alcoholism 280171221 (SNOMED CT) Resolved 09/04 Sulema Loyd MD Family history of alcoholism Bacterial vaginosis 438604434 (SNOMED CT) 09/04 Inactive 09/04 Sulema Loyd MD Bacterial vaginosis Family History of Alcoholism 623548370 (SNOMED CT) Removed 09/04 Sulema Loyd MD Family history of alcoholism Std screening 817497324 (SNOMED CT) 09/04 Inactive 09/04 Sulema Loyd MD Venereal disease screening Hx of heroine abuse 994683615948 105 (SNOMED CT) 09/04 Active 09/04 Sulema Loyd MD History of heroin abuse Schizophreni a 00824789 (SNOMED CT) 09/04 Active 09/04 Sulema Loyd MD Schizophrenia Neuropathy 546881998 (SNOMED CT) 09/04 Active 09/04 Sulema Loyd MD Neuropathy Tobacco use disorder 82770222 (SNOMED CT) 09/04 Active 09/04 Sulema Loyd MD Tobacco dependence syndrome COPD 95885250 (SNOMED CT) 09/04 Active 09/04 Sulema Loyd MD Chronic obstructive pulmonary disease DJD, lumbar spine 455881703 (SNOMED CT) 09/04 Active 09/04 Sulema Loyd MD Lumbar spondylosis Medications Medication Instructions Start Date Stop Date Generic Name NDC Provider HYDROCHLOROTHIAZIDE 25 MG TABS TAKE 1 TABLET BY MOUTH 1 TIME A DAY 10/12 HYDROCHLOROTHIAZIDE 90367619583 Summer Keaglolu DRILL DOCTOR BCADM IBUPROFEN 800 MG TABS TAKE 1 TABLET BY MOUTH EVERY 8 HOURS NEEDED 10/12 IBUPROFEN 35775978572 Summer Keaglolu DRILL DOCTOR BCADM DICLOFENAC SODIUM 75 MG TBEC Take 1 tablet by mouth twice a day as needed for pain 09/18 DICLOFENAC SODIUM 54022667092 Summer Carvalho APRN BCADM BUSPIRONE HCL 10 MG TABS Take 1 tablet by mouth twice a day as needed for anxiety 09/18 BUSPIRONE HCL 79214710731 Sulema Loyd MD DICLOFENAC SODIUM 75 MG TBEC Take 1 tablet by mouth twice a day as needed for pain 09/18 DICLOFENAC SODIUM 76142872690 Sulema Loyd MD ROBAXIN-750 750 MG ORAL TABLET 1 TAB 3 TIMES DAILY as needed for muscle pain 09/04 METHOCARBAMOL 76101109369 Sulema Loyd MD GABAPENTIN 600 MG TABS 1 TAB 3 TIMES DAILY 09/04 GABAPENTIN 27044896183 Sulema Loyd MD METRONIDAZOLE 500 MG TABS TAKE 1 TABLET BY MOUTH 2 TIMES A DAY FOR 7 DAYS 09/04 METRONIDAZOLE 08870265149 Sulema Loyd MD GABAPENTIN 600 MG TABS 1 TAB 3 TIMES DAILY 09/04 GABAPENTIN 69883966434 Sulema Loyd MD ROBAXIN-750 750 MG ORAL TABLET 1 TAB 3 TIMES DAILY as needed for muscle pain 09/04 METHOCARBAMOL 21703658791 Sulema Loyd MD ZYPREXA 5 MG TABS 1 at bedtime 09/04 OLANZAPINE 93901929482 Sulema Loyd MD GEODON 20 MG CAPS 1 tablet twice daily 09/04 ZIPRASIDONE HCL 14030765822 Sulema Loyd MD Medications Administered No information available. Allergies, Adverse Reactions, Alerts Observed no known allergies at Results Date Name Value Unit Range Flag Description Office Visit: New to est. [place] cterial infection/help with becky RM 16 TANMAY PREP Positive Whiff TANMAY p reparation for fungus WET MOUNT 2+ bacteria, 2+ WBCs, Clue Cells present, Yeast absent, Trichomonas absent microbial wet sm ear Lab Report: HIV 1/2 ANTIGEN/ ANTIBODY,FOURTH GENERATION W/RFL, COMPREHENS ... HEP C AB NON-REACTIVE NON-REACT I N Hepatitis C virus Ab [Presence] in Serum SGPT (ALT) 21 U/L 6-29 N Alanine aminotransferase [Enzymatic activity/volume] in Serum or Plasma SGOT (AST) 21 U/L 10-35 N Aspartate aminotransferase [Enzymatic activity/volume] in Serum or Plasma ALK PHOS 100 U/L 33-115 N Alkaline jose luis sphatase [Enzymatic activity/volume] in Blood BILI TOTAL 0.4 mg/dL 0.2-1.2 N Bilirubin. total [Mass/volume] in Serum or Plasma A/G RATIO 1.6 (calc) 1.0-2.5 N Albumin/ Globulin [Mass Ratio] in Serum or Plasma GLOBULIN TOT 2.8 G/DL (CALC) g/dL 1.9-3.7 N Globulin [Mass/volume] in Serum ALBUMIN EOP 4.5 g/dL 3.6-5.1 N Albumin [Mass/volume] in Serum or Plasma by Electrophoresis PROTEIN, TOT 7.3 g/dL 6.1-8.1 N Protein [Mass/volume] in Serum or Plasma CALCIUM 9.8 mg/dL 8.6-10.2 N Calcium [Moles/volume] in Serum or Plasma CO2 27 mmol/L 19-30 N Carbon dioxid e, total [Moles/volume] in Venous blood CHLORIDE BLD 103 mmol/L 98-110 N chloride , blood POTASSIUM 4.2 mmol/L 3.5-5.3 N Potassium [Moles/volume] in Serum or Plasma SODIUM 141 mmol/L 135-146 N Sodium [Moles/volume] in Serum or Plasma BUN/CREAT NOT APPLICABLE (calc) 6-22 Urea nitrogen/Creatinine [Mass Ratio] in Serum or Plasma EGFR IF AFA 124 mL/min/1 .73m2 >OR = 60 N Glomerular filtration rate/1.73 sq M.predicted among blacks [Volume Rate/Area] in Serum, Plasma or Blood by Creatinine-based formula (MDRD) EGFR 107 mL/min/1 .73m2 >OR = 60 N Glomerular filtration rate/1.73 sq M.predicted [Volume Rate/Area] in Serum, Plasma or Blood by Creatinine-based formula (MDRD) CREATININE 0.62 mg/dL 0.50-1.10 N Creatini ne [Mass/volume] in Serum or Plasma BUN 21 mg/dL 7-25 N Urea nitrogen [Mass/volume] in Serum or Plasma GLUCOSE SER 79 mg/dL 65-99 N Glucose [Mass/volume] in Serum or Plasma Plan of Care Type Date Detail Referral [facility], [address] [place] [address], [phone] Referral [facility], [address] [place] [address], [id number] Referral excluded fr report: Pending order Medication Recon ciliation Pending order Medication Recon ciliation Pending order Hep C Ab Pending order CMP Pending order HIV 1/2 Antigen & Antibodies -consent required Pending order ThinPrep Pap w G C/Chlamydia Pending order Medication Recon ciliation Pending order Current every da y smoker Pending order Smoking cessatio n education Patient education Medications Patient education Medications Patient education BACTERIAL%20[facility] Patient education Medications Patient education BACTERIAL%20[facility] Procedures Code Procedure Name Date Entry Date PSYCH [facility] 09/04 [id number] Medication Reconciliation [id number] Medication Reconciliation 8472 [facility] [place] [address] [facility] Test # CMP 1 93419 [facility] Test # HIV 1/2 Antigen & An tibodies -consent required [id number] Medication Reconciliation [id number] Current every day smoker 20 19/09/00 [id number] Smoking cessation education [facility]# [id number] ThinPrep Pap w GC/Chlamydia Vital Signs Date Name Value Unit Description BMI (Body Mass Index) 22.03 kg/m2 Bod y Mass Index (Ratio) Body Temperature 97.9 [degF] temperat ure E&M Body Temperature 36.61 Ana temperat ure in centigrade E&M BP Diastolic 80 mm[Hg] blood pressu re, diastolic BP Systolic 121 mm[Hg] blood pressur e, systolic BSA (Body Surface Area) 1.70 b damaris surface area Heart Rate 97 /min pulse rate Weight Measured 61.82 kg weight in kilograms E&M Weight Measured 136 [lb_av] weight E& M Weight Measured 136 [lb_av] weight E& M Height 66 [in_us] height E&M Height 167.64 cm height in cent imeters E&M Immunizations No information available. Advance Directives No information available.
--- OUTSIDE RECORDS SUMMARY | 2025-02-02 10:23 | XMS_ITS | Encounter Summary ---
Author Organization [facility] Address [address] [place] [address] Care Team Providers Care Road Oiling Truck Driver Name Role Phone Unavailable Primary Care Provider Unavailabl e Source Comments This information has been disclosed [...] release of HIV test results or diagnoses. [id number] Health Encounter Details Date Type Department Care Team (Latest Contact Info) Description 01/21/2025 Travel Social History Tobacco Use Types Packs/Day Years Used Date Smoking Tobacco: Never Assessed Comments No Sex and Gender Information Value Date Recorded Sex Assigned at Not on file Legal Sex Female 7:24 PM EST Gender Identity Not on file Sexual Orientation Not on file documented as of this encounter Plan of Treatment Not on file documented as of this encounter Visit Diagnoses Not on filedocumented in this encounter Additional Health Concerns Infection Onset Date Last Indicated Resolved Time Rule Out COVID-19 01/21/2025 01/21/2025 01/22/2025 1:15 AM EDT documented as of this encounter
--- OUTSIDE RECORDS SUMMARY | 2025-02-02 10:23 | XMS_ITS | Clinical Summary ---
Author Organization [facility] Address [address] [place] [address] Care Team Providers Care Core Sucker Name Role Phone Zaire Strong APRN Primary Care Provider Source Comments This information has been disclosed to you from confidential records protectedfrom disclosure by state law. You shall make no further disclosure of thisinformation without the specific, written, and informed release of theindividual to whom it pertains, or as otherwise permitted by law. A generalauthorization for the release of medical or other information is not sufficientfor the purposes of therelease of HIV test results or diagnoses. [id number] Allergies No known active allergies Medications methadone (DOLOPHINE) 10 mg/mL Take 0.5 mLs (5 mg total) by mouth daily. Active Encounters Date Type Department Care Team Description 01/22/2025 1:48 AM EDT - 01/22/2025 6:03 AM EDT Emergency [facility] Emergency Department [address] [place] [phone] Jorge Bernstein MD Dyspnea, unspecified type (Primary Dx) Discharge Disposition: Home or Self Care WITHOUT Home Care Services 01/21/2025 Travel from Last 3 Months Social History Tobacco Use Types Packs/Day Years Used Date Smoking Tobacco: Never Assessed Comments No Sex and Gender Information Value Date Recorded Sex Assigned at Not on file Legal Sex Female 7:24 PM EST Gender Identity Not on file Sexual Orientation Not on file Last Filed Vital Signs Vital Sign Reading [...] - - Body Mass Index - - Plan of Treatment Health Maintenance Due Date Last Done Comments Abnormal Colonoscopy Follow Up 1967 Alcohol Misuse Screening 1985 Depression Screening 1985 HIV Screening 1985 Immunization: DTaP/Tdap/Td (1 - Tdap) 1986 Immunization: Hepatitis B (1 of 3 - 19+ 3-dose series) 1986 Cervical Cancer Screening/Pa p Smear (MyChart) 1997 Mammogram (MyChart) 2007 Cologuard (FIT-DNA) 2012 Colonoscopy 2012 Colorectal Cancer Screening (MyChart) 2012 Stool Testing (gFOBT) 2012 Immunization: Zoster (1 of 2) 2017 Immunization: COVID-19 ( season) 2024 04/24/2021, 09/09/2020, 08/12/2020 Immunization: Influenza (MyC herrera) (#1) 2025 06/15/2024, 03/02/2010, 03/06/2009 Immunization: Pneumococcal Completed 06/15/2024 Hepatitis C Screening (MyChart) Completed Procedures Procedure Name Priority Date/Time Associated Diagnosis Comments EKG - SCAN 01/24/2025 11:01 AM EDT DDIMER STAT 01/22/2025 3:44 AM EDT HEPATIC FUNCTION PANEL STAT 01/22/2025 3:32 AM EDT HIGH SENSITIVITY TROPONIN STAT 01/22/2025 3:32 AM EDT VENOUS BLOOD GAS, LINE/SYRINGE STAT 01/21/2025 11:41 PM EDT B NATRIURETIC PEPTIDE STAT 01/21/2025 11:41 PM EDT HIGH SENSITIVITY TROPONIN STAT 01/21/2025 11:41 PM EDT INFLUENZA A AND B, COVID, RSV COMBINATION ASSAY, HAWK STAT 01/21/2025 11:41 PM EDT DIFFERENTIAL STAT 01/21/2025 11:41 PM EDT CBC STAT 01/21/2025 11:41 PM EDT ED HCV AB REFLEX TO HCV QUANT Routine 01/21/2025 11:41 PM EDT BASIC METABOLIC PANEL STAT 01/21/2025 11:41 PM EDT XR CHEST PA AND LATERAL DON 01/21/2025 11:30 PM EDT ED ECG 12-LEAD (MUSE) STAT 01/21/2025 11:12 PM EDT from Last 3 Months Results * EKG - scan (01/24/2025 11:01 AM EDT) us Scanning Uchhim SCAN DOCS - NO RESULTS Final Res ult * D Dimer (01/22/2025 3:44 AM EDT) D-Dimer 0.50 0.00 - 0.50 ug/mL FEU 01/22/2025 4:25 AM EDT [facility] Comment:The D-dimer test may be used [...] 3:44 AM EDT 01/22/2025 3:52 AM EDT Adriana Castro MD LAB BLOOD ORDERABLES Final Result [facility] [address] [facility]. [address] * High Sensitivity Troponin (01/22/2025 3:32 AM EDT) Only the most recent of2 resultswithin the time period is included. Pathologist [facility] High Sensitivity Troponin 6 0 - 14 ng/L 01/22/2025 4:01 AM EDT [facility] Serum 01/22/2025 3:32 AM EDT 01/22/2025 3:36 AM EDT Adriana Castro MD LAB BLOOD ORDERABLES Final Result Performing Organization Address City/[facility] Co de Phone Number [facility] [address] [facility]. [address] * (ABNORMAL) Hepatic Function Panel (01/22/2025 3:32 AM EDT) Total Bilirubin 0.3 0.0 - 1.5 mg/dL 01/22/2025 3:55 AM EDT [facility] Bilirubin, Direct 0.1 0.0 - 0.4 mg/dL 01/22/2025 3:55 AM EDT [facility] AST 15 13 - 39 U/L 01/22/2025 3:55 AM EDT [facility] ALT 10 7 - 52 U/L 01/22/2025 3:55 AM EDT [facility] Alkaline Phosphatase 54 36 - 125 U/L 01/22/2025 3:55 AM EDT [facility] Total Protein 5.8(L) 6.4 - 8.9 g/dL 01/22/2025 3:55 AM EDT [facility] Albumin 3.7 3.5 - 5.7 g/dL 01/22/2025 3:55 AM EDT [facility] Bilirubin, Indirect 0.2 0.0 - 1.1 mg/dL 01/22/2025 3:55 AM EDT [facility] Plasma 01/22/2025 3:32 AM EDT 01/22/2025 3:36 AM EDT us Jorge Bernstein MD LAB BLOOD ORDERABLES Fi nal Result [facility] [address] [facility] [place] [address], [facility] * Influenza A and B, COVID, RSV Combination Assay, HAWK (01/21/2025 11:41 PM EDT) Pathologist [facility] Influenza A Negative Negative 01/22/2025 1:15 AM EDT [facility] Influenza B Negative Negative 01/22/2025 1:15 AM EDT [facility] RSV Negative Negative 01/22/2025 1:15 AM EDT [facility] SARS-CoV-2 Negative Negative,Not Detected 01/22/2025 1:15 AM EDT [facility] Comment:This is an FDA-appro eric amplified nucleic acid assay performed by real- time PCR. Nasopharyngeal Swab NASOPHARYNGEAL STRUCTURE / Unknown 01/21/2025 11:41 PM EDT 01/22/2025 12:31 AM EDT us Alisa VIDES BODY FLUIDS AND STOOLS ORDER СЕРГЕЙ Final Result Performing Organization Address City/[facility] Co de Phone Number [facility] [address] [facility]. [place] [id number], [facility] * (ABNORMAL) Venous blood gas, Line/Syringe (01/21/2025 11:41 PM EDT) PH-Line Draw 7.40 7.32 - 7.42 01/21/2025 11:49 PM EDT [facility] PCO2-Line Draw 64(H) 41 - 51 mm Hg 01/21/2025 11:49 PM EDT [facility] PO2-Line Draw 20(L) 25 - 40 mm Hg 01/21/2025 11:49 PM EDT [facility] HCO3-Line Draw 31(H) 24 - 28 mmol/L 01/21/2025 11:49 PM EDT [facility] CO2 Content-Line Draw 42(HH) 25 - 29 mmol/L 01/21/2025 11:49 PM EDT [facility] Comment: The critical result was called to, and read back by, licensed caregiver KRISTEN RIVERA RN Base Excess-Line Draw 11.2(H) -2.0 - 3.0 mmol/L 01/21/2025 11:49 PM EDT [facility] %HBO2-Line Draw 26.9(L) 40.0 - 70.0 % 01/21/2025 11:49 PM EDT [facility] Carboxyhgb-Valerie e Draw 11.4 % 01/21/2025 11:49 PM EDT [facility] Comment: CARBOXYHEMOGLOBIN (CO) REFERENCE RANGES: Non-Smokers: <2 % Smokers: <8 % TOXIC: >20 % Methemoglobin- Line Draw 0.0 0.0 - 1.5 % 01/21/2025 11:49 PM EDT [facility] Reduced Hemoglobin-Valerie e Draw 61.7(H) 0.0 - 5.0 % 01/21/2025 11:49 PM EDT [facility] Venous, Line Draw 01/21/2025 11:41 PM EDT 01/21/2025 11:44 PM EDT us Alisa VIDES LAB BLOOD ORDERABLES Final R esult [facility] [address] * ED HCV Ab Reflex To HCV Quant (01/21/2025 11:41 PM EDT) HCV Ab Nonreactive Nonreactive 01/22/2025 12:53 AM EDT [facility] Comment:Health Department no tified in accordance with reportable infectious disease guidelines. HCVAB Number 0.02 0.00 - 0.79 S/CO 01/22/2025 12:53 AM EDT [facility] Serum 01/21/2025 11:4 1 PM EDT 01/21/2025 11:46 PM EDT us Alisa VIDES LAB BLOOD ORDERABLES Final R esult [facility] [address] [facility] * Differential (01/21/2025 11:41 PM EDT) Neutrophils Relative 63.0 40.0 - 80.0 % 01/21/2025 11:56 PM EDT [facility] Lymphocytes Relative 26.9 15.0 - 45.0 % 01/21/2025 11:56 PM EDT [facility] Monocytes Relative 8.7 0.0 - 12.0 % 01/21/2025 11:56 PM EDT [facility] Eosinophils Relative 0.9 0.0 - 8.0 % 01/21/2025 11:56 PM EDT [facility] Basophils Relative 0.5 0.0 - 1.0 % 01/21/2025 11:56 PM EDT [facility] nRBC 0 0 - 0 /100 WBC 01/21/2025 11:56 PM EDT [facility] Neutrophils Absolute 3,780 1,520 - 8,640 /uL 01/21/2025 11:56 PM EDT [facility] Lymphocytes Absolute 1,614 570 - 4,860 /uL 01/21/2025 11:56 PM EDT [facility] Monocytes Absolute 522 0 - 1,296 /uL 01/21/2025 11:56 PM EDT [facility] Eosinophils Absolute 54 0 - 864 /uL 01/21/2025 11:56 PM EDT [facility] Basophils Absolute 30 0 - 108 /uL 01/21/2025 11:56 PM EDT [facility] Whole Blood 01/21/2025 11:4 1 PM EDT 01/21/2025 11:46 PM EDT us Alisa VIDES LAB BLOOD ORDERABLES Final R esult [facility] [address] [facility] * (ABNORMAL) CBC (01/21/2025 11:41 PM EDT) WBC 6.0 3.8 - 10.8 10E3/uL 01/21/2025 11:56 PM EDT [facility] RBC 5.46(H) 3.80 - 5.10 10E6/uL 01/21/2025 11:56 PM EDT [facility] Hemoglobin 17.3(H) 11.7 - 15.5 g/dL 01/21/2025 11:56 PM EDT [facility] Hematocrit 49.5(H) 35.0 - 45.0 % 01/21/2025 11:56 PM EDT [facility] MCV 90.6 80.0 - 100.0 fL 01/21/2025 11:56 PM EDT [facility] MCH 31.7 27.0 - 33.0 pg 01/21/2025 11:56 PM EDT [facility] MCHC 35.0 32.0 - 36.0 g/dL 01/21/2025 11:56 PM EDT [facility] RDW 14.7 11.0 - 15.0 % 01/21/2025 11:56 PM EDT [facility] Platelets 240 140 - 400 10E3/uL 01/21/2025 11:56 PM EDT [facility] MPV 8.3 7.5 - 11.5 fL 01/21/2025 11:56 PM EDT [facility] Whole Blood 01/21/2025 11:4 1 PM EDT 01/21/2025 11:46 PM EDT us Alisa VIDES LAB BLOOD ORDERABLES Final R esult [facility] [address] * (ABNORMAL) BNP (01/21/2025 11:41 PM EDT) BNP 112(H) 0 - 100 pg/mL 01/22/2025 12:08 AM EDT [facility] Comment: BNP may be increased in the presence of sacubitril/valsartan (Entresto). Please interpret accordingly. Plasma 01/21/2025 11:4 1 PM EDT 01/21/2025 11:44 PM EDT Narrative [facility] - 01/22/2025 12:08 AM EDT The presence of high concentrations of biotin may cause falsely lowered BNP results. Biotin interference may be seen if an individual is taking >5 mg biotin per day. Interpret BNP results in the context of the patient's clinical presentation. us Alisa VIDES LAB BLOOD ORDERABLES Final R esult [facility] [address] [place] [address], [facility] * (ABNORMAL) Basic metabolic panel (01/21/2025 11:41 PM EDT) Sodium 137 133 - 146 mmol/L 01/22/2025 12:01 AM EDT [facility] Potassium 4.3 3.5 - 5.3 mmol/L 01/22/2025 12:01 AM EDT [facility] Comment:Hemolysis Present: R esults may be influenced artificially. Recommend recollection as clinically indicated. Chloride 97(L) 98 - 110 mmol/L 01/22/2025 12:01 AM EDT [facility] CO2 34(H) 21 - 33 mmol/L 01/22/2025 12:01 AM EDT [facility] Anion Gap 6 3 - 16 mmol/L 01/22/2025 12:01 AM EDT [facility] BUN 14 7 - 25 mg/dL 01/22/2025 12:01 AM EDT [facility] Creatinine 0.80 0.60 - 1.30 mg/dL 01/22/2025 12:01 AM EDT [facility] Glucose 92 70 - 100 mg/dL 01/22/2025 12:01 AM EDT [facility] Calcium 9.5 8.6 - 10.3 mg/dL 01/22/2025 12:01 AM EDT [facility] Osmolality, Calculated 284 278 - 305 mOsm/kg 01/22/2025 12:01 AM EDT [facility] EGFR 86 01/22/2025 12:01 AM EDT [facility] Comment:As of 2021, the estimated GFR [...] C, Josue M, Nikki DC, Beena ND, Ángel CA, Demond LA, et al. A Unifying Approach for GFR Estimation: Recommendations of the NKF-ASN Task Force on Reassessing the inclusion of Race in Diagnosing Kidney Disease. Am J Kidney Dis. 2020. Plasma 01/21/2025 11:4 1 PM EDT 01/21/2025 11:44 PM EDT us Alisa Flores PA LAB BLOOD ORDERABLES Final R esult [facility] [address] [place] [address], [facility] * X-ray Chest PA and Lateral [...] QT: 416 ms QTc: 479 ms P Lamar: 85 degrees R Lamar: 106 degrees T Lamar: 67 degrees Diagnosis Line: ^ INTERPRETATION NOT AVAILABLE--ECG READ IN ER ^ Confirmed by PHYSICIAN, ER ([id number]), editor greeting card Cari Jarvis ([id number]) on 01/22/2025 7:49:14 AM us Jorge Bernstein MD ECG ORDERABLES Final R esult MUSE from Last 3 Months Insurance MEDICARE A AND B Care Teams Core Sucker Relationship Specialty Start Date End Date Zaire Strong APRN [address] [place] [id number] PCP - General Family Medicine 01/22/25
--- NOTE | 2025-02-02 10:40 | CT_ITS ---
PROCEDURE INFORMATION: Exam: CT Abdomen And Pelvis With Contrast Exam date and time: 02/02/2025 11:41 AM Age: 59 years old Clinical indication: Abdominal pain; Additional info: Epigastric pain, vomiting TECHNIQUE: Imaging protocol: Computed tomography of the abdomen and pelvis with contrast. Radiation optimization: All CT scans at this facility use at least one of these dose optimization techniques: automated exposure control; mA and/or kV adjustment per patient size (includes targeted exams where dose is matched to clinical indication); or iterative reconstruction. Contrast material: ISOVUE; Contrast volume: 75 ml; Contrast route: IV; COMPARISON: CT ANGIO CHEST PE PROTOCOL 04/04/2024 7:54 PM FINDINGS: Lungs: Emphysema at the lung bases. Liver: Stable multiple small hepatic cysts. Gallbladder and biliary ducts: Normal. No calcified stones. No ductal dilation. Pancreas: Normal. No ductal dilation. Spleen: Normal. No splenomegaly. Adrenal glands: Normal. No mass. Kidneys and ureters: Normal. No hydronephrosis. Stomach and bowel: Unremarkable. No obstruction. No mucosal thickening. Appendix: No evidence of appendicitis. Intraperitoneal space: Unremarkable. No free air. No significant fluid collection. Vasculature: Unremarkable. No abdominal aortic aneurysm. Lymph nodes: Unremarkable. No enlarged lymph nodes. Urinary bladder: Unremarkable as visualized. Reproductive: Unremarkable as visualized. Bones/joints: Unremarkable. No acute fracture. Soft tissues: Unremarkable. IMPRESSION: No acute findings.
--- NOTE | 2025-02-02 10:51 | ECG_ITS ---
APPROVED REPORT Exam: Resting ECG HR:74 bpm ECG Measurements Heart Rate 74 AXES OH 122 P 76 QRSd 122 QRS 97 QT 422 T 75 QTc 449 Conclusion Sinus rhythm Incomplete right bundle branch block No STEMI Unchanged from prior Electronically signed by : Rogelio Chacon, 02/02/2025 17:30:55
[2025-02-02] MEDS: MORPHINE 4MG/ML SYRINGE 4 MG IV (10:53)
[2025-02-02] MEDS: ONDANSETRON 4MG/2ML VIAL 4 MG IV (10:53)
[2025-02-02] MEDS: LACTATED RINGERS 1000ML 1,000 ML 999 ML IV (10:53)
[2025-02-02 10:56] LABS: Hematocrit 46.9 % (37.0-47.0); Hemoglobin 16.0 g/dL (12.2-16.2); Immature Granulocytes % 0.2 %; Mean Corpuscular HGB Conc 34.1 g/dL (31.8-35.4); Mean Corpuscular Hemoglobin 31.1 pg (27.0-31.2); Mean Corpuscular Volume 91.1 fl (81-99); Nucleated Red Blood Cells % 0 %; Platelet Count 178 K/mm3 (142-424); Red Blood Count 5.15 M/mm3 (4.20-5.40); Red Cell Distribution Width-SD 47.4 fL; White Blood Count 4.8 K/mm3 (4.8-10.8)
[2025-02-02 11:06] LABS: Alanine Aminotransferase 19 U/L (12-78); Albumin Level 4.3 g/dl (3.5-5.0); Albumin/Globulin Ratio 1.4 (1.1-1.8); Alkaline Phosphatase 82 U/L (38-126); Anion Gap 10.8 mEq/L (5-15); Aspartate Amino Transferase 32 U/L (14-36); Bilirubin,Total 0.6 mg/dl (0.2-1.3); Blood Urea Nitrogen 14 mg/dl (7-17); Calcium 9.2 mg/dl (8.4-10.2); Carbon Dioxide 34 mmol/L (22.0-30.0); Chloride 96 mmol/L (98-107); Creatinine Clearance Estimated 74 mL/min (50-200); Creatinine,Serum 0.60 mg/dl (0.52-1.04); Estimated Glomerular Filt Rate 103 ml/min (>60); GFR (African American) 125 ML/MIN (>60); Globulin 3.0 g/dL (1.3-3.2); Glucose 114 mg/dl (74-100); Lipase 122 U/L (23-300); Potassium 3.8 mmoL/L (3.5-5.1); Sodium 137 mmol/L (136-145); Total Protein,Serum 7.3 g/dl (6.3-8.2)
[2025-02-02 11:10] LABS: Microscopic, Urine URINE MICROSCOPIC (MICROSCOPIC)
[2025-02-02 11:15] LABS: Bilirubin,Urine Negative (Negative); Color,Urine YELLOW (Yellow); Glucose,Urine (UA) Negative (Negative); Ketones,Urine Negative (Negative); Leukocyte Esterase,Urine Negative (Negative); PH,Urine 8.5 (5.0-8.5); Protein,Urine Negative (Negative); Specific Gravity, Urine 1.020 (1.005-1.030); Urobilinogen,Urine 0.2 EU/dl (0.2)
--- NOTE | 2025-02-02 11:25 | PC.NURSE ---
pt's 02 dropped to 87%. pt states that she is supposed to wear 02 at home but doesn't. pt placed on 2L NC. pt 02 97% on 2L.
[2025-02-02 11:31] LABS: Troponin I < 0.01 ng/ml (0.00-0.034)
[2025-02-02] MEDS: SODIUM CHLORIDE 0.9% 10ML SYR (RAD ONLY) 10 ML IV (11:39)
[2025-02-02] MEDS: IOPAMIDOL-370 (76%);100ML BOTTLE 75 ML IV (11:39)
[2025-02-02 12:22] LABS: Amorphous Sediment,Urine Trace /lpf; Bacteria,Urine Trace /lpf; Squamous Epithelial Cell,Urine Occasional #/hpf (0-5); WBC,Urine Occasional #/hpf (0-3)
[2025-02-02 13:12] LABS: Troponin I < 0.01 ng/ml (0.00-0.034)
--- NOTE | 2025-02-02 13:33 | ED_ITS ---
Discharge Plan Disposition Patient Disposition: Home, Self-Care Condition: Good Prescriptions Prescriptions: New ondansetron 4 mg tablet,disintegrating 4 mg PO Q6H PRN (Reason: nausea and vomiting) Qty: 21 0RF No Action methadone 10 mg/5 mL solution 115 mg PO DAILY peg 3350-electrolytes [Golytely] 236-22.74-6.74 -5.86 gram recon soln 240 ml PO Q10M Qty: 4000 0RF Rx Instructions: at 6pm day before surgery take first dose. After mixing prep as directed, drink half of the gallon by drinking 8 ounces, or 1 cup, every 15 mins until half is remaining. refrigerate the remaining and continue clear liquids till midnight. 5-6 hours before exam, take the second dosage, 8oz every 15 mins till gone. Referrals Follow up/Referrals: Zaire Strong APRN [Primary Care Provider, Medical] - See instructions Activity Restrictions/Add. Instructions Additional Instructions/Restrictions: Please take Zofran for nausea at home. Your CT scan was normal. If you have any new or worsening symptoms please return Clinical Impressions Clinical Impression: Acute epigastric pain Nausea & vomiting Qualifiers: Vomiting type: unspecified Qualified Code(s): R11.2 - Nausea with vomiting, unspecified Instructions Patient Instructions: DI for Vomiting -- Adult Print Language Print Language: Kiswahili Discharge ED Provider: Rogelio Chacon Adult HPI General Chief complaint: Nausea/Vomiting/Diarrhea Stated complaint: vomiting, arms/hands tinkling, blisters in mouth Time Seen by Provider: 02/02/25 10:24 Mode of Arrival: Wheelchair Source of Information: Patient Description of Symptoms (Recalled from ER Triage Doc. by RN): patient states she began vomiting this am and has blisters in her mouth, recently diagnosed with uti but has not got the antibiotics picked up. History of Present Illness HPI narrative: This is a 59-year-old female patient, with a past medical history of tobacco abuse as well as hyperlipidemia and COPD, who is presenting to the emergency department today for evaluation of nausea and vomiting. The patient states that she felt well upon going to bed last night and when she woke up this morning she began having significant nausea and vomiting with the development of epigastric abdominal pain. She has not had any diarrhea and has also not had any constipation. She denies hematochezia and melena. No bright red blood per rectum. No bilious emesis or hematemesis. She is not having chest pain at this time. She denies shortness of breath. No one else in the house is currently sick. She is not currently having fevers. No associated upper respiratory symptoms. She denies dysuria and hematuria. Related Data Home Medications ?Medication ?Instructions ?Recorded ?Confirmed methadone 10 mg/5 mL oral solution 115 mg PO DAILY hx of drug use 04/24/19 08/24/24 Previous Rx's ?Medication ?Instructions ?Recorded peg 3350-electrolytes 236 240 ml PO Q10M colonscopy #4 ,000 mL 10/25/24 gram-22.74 gram-6.74 gram-5.86 gram solution (Golytely) ondansetron 4 mg disintegrating 4 mg PO Q6H PRN nausea and 02/02/25 tablet vomiting #21 tabs Allergies Allergy/AdvReac Type Severity Reaction Status Date / Time No Known Allergies Allergy Verified 03/01/24 11:02 [facility] Disclaimer: The information contained in this section may have been updated after the patient was seen, as this information can be updated by other users. Medical History Tobacco user Pre-operative cardiovascular examination HLD (hyperlipidemia) Abnormal electrocardiogram [ECG] [EKG] Change in vision Dizziness Screening for lung cancer Pulmonary emphysema Smoking greater than 30 pack years Tobacco use Seasonal allergies Dyspnea on exertion Tobacco abuse counseling Substance abuse in remission Claudication Leg pain Discoloration of skin of lower leg Abnormal ECG Tobacco use Vitamin D insufficiency Arthritis Fibromyalgia Migraine COPD (chronic obstructive pulmonary disease) Depression Anxiety Surgical History H/O: hysterectomy H/O bilateral breast implants Hx of tonsillectomy Family History Other Alcoholism Anemia Bleeding disorder Cancer Heart attack Hypertension Substance abuse Social History Smoking Status: Current every day smoker tobacco type: cigarettes packs per day: 2 second hand exposure: Yes alcohol intake: never counseling provided: none substance use type: former substance user, crack/cocaine, heroin and other (01/13/22-Last use 2 years ) current occupational status: unemployed Travel in the last 8 weeks?: None household members: spouse housing: house caffeine: Yes Have you lived/traveled outside [place] in past 30 days?: No Contact w/someone who lives/traveled outside US past 30 days?: No Exposure to someone with infectious disease in past 14 days?: No Do you have a fever (greater than 100.4 F or 38 C)?: No Have you tested positive for COVID-19?: No Exposed to someone with COVID-19 in past 14 days?: No Do you have a sore throat?: No Do you have a cough?: No Do you have any weakness?: Yes Do you have any diarrhea?: Yes Are you experiencing any unusual bleeding?: No Do you have any muscle aches/pain?: Yes Do you have any abdominal pain?: Yes Are you experiencing loss of taste or smell?: No Other Medical History Have you received the Flu Vaccine for this season: No Have you received the Pneumonia Vaccine: No ROS Obtained: Yes Systems reviewed as appropriate & no additional complaints except as documented Physical Exam General General appearance: other (See MDM) Respiratory Respiratory exam: Present other (See MDM) Cardiovascular Cardiovascular exam: Present other (See MDM) Neurological Exam Neurological exam: Present other (See MDM) Medical Decision Making Medical Records Medical records reviewed: Yes I reviewed the patient's medical records. Screening: Per USPSTF and CDC recommendations, given the prevalence of disease in our region, it is our hospital?s policy to screen for HIV and viral Hepatitis for all patients aged 18 and over and those with ongoing risk factors. [place] Inquiry Pt receiving controlled substance: No [place] was queried for this patient: No Vital Signs: 02/02/25 10:24 02/02/25 10:50 02/02/25 10:50 Temperature 98.6 F Temperature Source Oral Pulse Rate 77 76 Pulse Rate [Right Radial] 83 Respiratory Rate 17 18 Blood Pressure 175/92 H 175/92 H Blood Pressure [Right Arm] 174/100 H Blood Pressure Mean [Right Arm] 124 Blood Pressure Source Automatic Cuff Blood Pressure Source [Right Arm] Automatic Cuff Blood Pressure Position Supine Blood Pressure Position [Right Arm] Supine 02 Sat by Pulse Oximetry 96 97 98 Oxygen Delivery Method Room Air Room Air Oxygen Flow Rate (LPM) 02/02/25 11:00 02/02/25 11:25 02/02/25 11:30 Temperature Temperature Source Pulse Rate 74 74 68 Pulse Rate [Right Radial] Respiratory Rate 16 Blood Pressure 154/94 H 154/94 H 147/79 H Blood Pressure [Right Arm] Blood Pressure Mean [Right Arm] Blood Pressure Source Automatic Cuff Automatic Cuff Blood Pressure Source [Right Arm] Blood Pressure Position Supine Supine Blood Pressure Position [Right Arm] 02 Sat by Pulse Oximetry 90 L 87 L 97 Oxygen Delivery Method Room Air Nasal Cannula Oxygen Flow Rate (LPM) 2 02/02/25 11:30 02/02/25 12:00 02/02/25 12:31 Temperature Temperature Source Pulse Rate 69 78 64 Pulse Rate [Right Radial] Respiratory Rate Blood Pressure 147/96 H 144/84 H 127/71 Blood Pressure [Right Arm] Blood Pressure Mean [Right Arm] Blood Pressure Source Blood Pressure Source [Right Arm] Blood Pressure Position Blood Pressure Position [Right Arm] 02 Sat by Pulse Oximetry 96 97 97 Oxygen Delivery Method Oxygen Flow Rate (LPM) 02/02/25 13:00 02/02/25 13:54 Temperature 98.4 F Temperature Source Oral Pulse Rate 62 67 Pulse Rate [Right Radial] Respiratory Rate 16 Blood Pressure 109/68 L 125/86 Blood Pressure [Right Arm] Blood Pressure Mean [Right Arm] Blood Pressure Source Automatic Cuff Blood Pressure Source [Right Arm] Blood Pressure Position Supine Blood Pressure Position [Right Arm] 02 Sat by Pulse Oximetry 98 Oxygen Delivery Method Nasal Cannula Oxygen Flow Rate (LPM) 2 Lab Data Lab Results 02/02/25 10:37: WBC 4.8, RBC 5.15, Hgb 16.0, Hct 46.9, MCV 91.1, MCH 31.1, MCHC 34.1, RDW 14.0, Plt Count 178, MPV 10.4, Neut % (Auto) 79.3, Lymph % (Auto) 14.9, D[place]key % (Auto) 4.8, Eos % (Auto) 0.4, Baso % (Auto) 0.4, Neut # (Auto) 3.8, Lymph # (Auto) 0.7, D[place]key # (Auto) 0.2, Eos # (Auto) 0.0, Baso # (Auto) 0.0, Sodium 137, Potassium 3.8, Chloride 96 L, Carbon Dioxide 34 H, Anion Gap 10.8, BUN 14, Creatinine 0.60, Estimated Creat Clear 74, Estimated GFR 103, Est GFR ( Amer) 125, Glucose 114 H, Calcium 9.2, Total Bilirubin 0.6, AST 32, ALT 19, Alkaline Phosphatase 82, Troponin I < 0.01, Total Protein 7.3, Albumin 4.3, Globulin 3.0, Albumin/Globulin Ratio 1.4, Lipase 122 02/02/25 11:05: Urine Color Yellow, Urine Appearance Clear, Urine pH 8.5, Ur Specific [place] 1.020, Urine Protein Negative, Urine Glucose (UA) Negative, Urine Ketones Negative, Urine Blood Trace-l, Urine Nitrate Negative, Urine Bilirubin Negative, Urine Urobilinogen 0.2, Ur Leukocyte Esterase Negative, Urine RBC None, Urine WBC Occasional, Ur Squamous Epith Cells Occasional, Amorphous Sediment Trace, Urine Bacteria Trace 02/02/25 12:21: Troponin I < 0.01 02/02/25 10:37 02/02/25 10:37 Orders (Tests/Meds): ED MEDICATIONS Discontinued Medications Generic Name Dose Route Start Last Admin Trade Name Ositoq PRN Reason Stop Dose Admin Lactated Ringer's 1,000 mls @ 999 mls/hr 02/02/25 10:40 02/02/25 12:01 Lactated Ringer's 1000 Ml Bag IV 02/02/25 11:40 Infused .Q1H1M ONE Infusion Iopamidol 75 ml 02/02/25 11:38 02/02/25 11:39 Iopamidol-370 (76%);100ml Bottle IV 02/02/25 11:39 75 ml ONCE ONE Administration Morphine Sulfate 4 mg 02/02/25 10:41 02/02/25 10:53 Morphine 4mg/Ml Syringe IV 02/02/25 10:42 4 mg ONCE ONE Administration Ondansetron HCl 4 mg 02/02/25 10:41 02/02/25 10:53 Ondansetron 4mg/2ml Vial IV 02/02/25 10:42 4 mg ONCE ONE Administration Sodium Chloride 10 ml 02/02/25 11:38 02/02/25 11:39 Sodium Chloride 0.9% 10ml Syr (Rad Only) IV 03/04/25 11:37 10 ml NEEDED PRN Administration Maintain IV Site ORDERS Category Date Time Status CT abdomen pelvis w con Stat Cat Scan 02/02/25 10:40 Completed Complete Blood Count Auto Diff Stat Lab 02/02/25 10:37 Completed Comprehensive Metabolic Panel Stat Lab 02/02/25 10:37 Completed Lipase Stat Lab 02/02/25 10:37 Completed Troponin I Q3H Lab 02/02/25 12:21 Completed Troponin I Stat Lab 02/02/25 10:37 Completed UA [Urinalysis and Microscopic] Stat Lab 02/02/25 11:05 Completed ECG Data Tracing #1: I reviewed this ECG and interpreted as documented below: EKG personally interpreted by me demonstrates normal sinus rhythm with a rate of 74 bpm, normal axis, no ND prolongation, narrow QRS with incomplete right bundle branch block morphology, no QTc prolongation. No ST elevation or depression. No overt signs of ischemia or arrhythmia. There are S waves in leads II, III, and aVF. I have reviewed prior EKGs which appear relatively unchanged Medical Decision Narrative: In summary, this a 59-year-old female patient who woke this morning with nausea and vomiting as well as epigastric abdominal pain. Comorbidities include a history of significant tobacco abuse with resultant COPD as well as hyperlipidemia. On initial evaluation of the patient they were resting comfortably in no acute distress and nontoxic in appearance. They are hemodynamically stable, saturating well room air, and are neurologically intact. On physical examination the patient is appropriately alert and interactive with a GCS of 15. Heart and lungs are clear to auscultation bilaterally. She does have epigastric abdominal tenderness to palpation on exam. No rebound tenderness. Right upper quadrant, left upper quadrant and bilateral lower quadrants are benign. Mucous membranes do appear dry, just posterior to the maxillary incisors the patient does have some superficial ulcerations on the mouth. There is no ulcerations of the posterior pharynx. Uvula is midline. She has no difficulty with rotation of her neck. Differential diagnosis includes gastroenteritis, enteritis, cholelithiasis, pancreatitis, electrolyte derangement, acute kidney injury, viral syndrome, among others. Given that the patient was experiencing abdominal tenderness on exam I did feel it was prudent to rule out acute intra-abdominal pathology with a CT scan of the abdomen and pelvis. We also proceeded with a hematologic labs as well as a urinalysis. Initial interventions included 4 mg of morphine and 4 mg of Zofran. We also administer 1 L of lactated Ringer's. Labs were personally interpreted by me and demonstrate no evidence of leukocytosis or anemia. There is also no evidence of electrolyte derangement or acute kidney injury. Initial troponin and delta troponin are both less than 0.01 which suggest against myocardial ischemia as the cause of her symptoms. Lipase is normal at 122 which suggest against pancreatitis. Urinalysis shows no nitrites, no leukocyte esterase, and occasional white blood cells which also suggest against a urinary tract infection. CT scan of the abdomen and pelvis was personally turbid by me and demonstrates no evidence of pneumoperitoneum. Official radiology read is in agreement and states there is no acute abnormality. On repeat assessment the patient she was resting comfortably and was in no acute distress. She has not had any more nausea or vomiting and her pain is now controlled. My overall impression is that this patient could potentially have underlying viral syndrome which is causing her nausea and vomiting with epigastric pain. I have encouraged the patient to remain well-hydrated at home. We will send Jaxson to the pharmacy to help control nausea. I have given her return precautions in the event that she begins experiencing intractable pain or inability to tolerate oral intake. At this time all questions have been answered and all parties are agreeable with the decision to discharge home Critical Care Critical Care Time Critical Care Time: No
== END 2025-02-02 13:57 | disposition home or self-care (01) ==
PROVIDERS: Emergency Provider Student in an Organized Health Care Education/Training Program; PCP Nurse Practitioner Family
DX: R10.13 Epigastric pain (principal); R11.2 Nausea with vomiting, unspecified; E78.5 Hyperlipidemia, unspecified; F11.20 Opioid dependence, uncomplicated
CPT/HCPCS: 74177; 80053; 81001; 83690; 84484; 85025; 93005; 96361; 96374; 96375; 99285; J2270; J2405; J7120; Q9967